=== PATIENT | female | born 1940 | race Caucasian/White ===

== ENCOUNTER 2018-03-07 16:25 | Observation (INO) | payer OTHER ==
--- OUTSIDE RECORDS SUMMARY | 2018-03-07 16:45 | XMS REPORT | Clinical Summary ---
:1940 Author Organization [facility] Address [address] [place] [id number] Care Team Providers Name Role Phone Pete Klein MD Primary Care Provider Allergies No Known Allergies Current Medications Prescription Sig. Disp. Refills Start Date End Date Status levothyroxine (SYNTHROID, Take 75 mcg by Active LEVOXYL) 75 mcg tablet mouth every morning. omeprazole (PriLOSEC) 20 Take 20 mg by Active MG capsule mouth daily. topiramate (TOPAMAX) 100 Take 100 mg by Active MG tablet mouth 2 (two) times a day. allopurinol (ZYLOPRIM) 300 Take 300 mg by Active MG tablet mouth daily. citalopram (CeleXA) 20 MG Take 20 mg by Active tablet mouth daily. Active Problems Problem Noted Date Pseudophakia 02/09/2017 Overview: OS 09/07/11 ZMB00 +19.5 OD 12/14/11 Last Assessment & Plan: OS 09/07/11 ZMB00 +19.5 OD 12/14/11 Dry eye syndrome 02/09/2017 Overview: RUL RLL puncta atretic. LLL plug intact, VERONIQUE plug removed due to epiphora. H/O Restasis use. Last Assessment & Plan: RUL RLL puncta atretic. LLL plug intact, VERONIQUE plug removed due to epiphora. 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 20/40 with MRx, given. If NI or cannot pass DL test, then call for YAG OU. DL form filled. Social History Tobacco Use Types Packs/Day Years Used Date Never Smoker Sex Assigned at Date Recorded Not on file Last Filed Vital Signs Not on file Plan of Treatment Health Maintenance Due Date Last Done Comments JOANNAGRMOHAN VACCINE (#1) 01/22/1988 ZOSTER VACCINE 1998 PNEUMOCOCCAL POLYSACCHARIDE VACCINE AGE 65 AND OVER 2003 PNEUMOCOCCAL-13 2003 INFLUENZA VACCINE 05/03/2018 Results Not on fileafter 03/06/2017 Insurance Payer Benefit Plan / Group Subscriber ID Type Phone Address MEDICARE MEDICARE PART A AND B xxxxxxxxxxx Medicare [place], [place] [employer] CO OF xxxxxxxxxx Commercial [place] [phone] [place] [id number]
--- OUTSIDE RECORDS SUMMARY | 2018-03-07 16:45 | XMS REPORT | Clinical Summary ---
:1940 Author Organization [facility] Address [address] [place] [address] Phone Care Team Providers Name Role Phone Unavailable Primary Care Provider Unavailable Allergies No Known Allergies Current Medications Prescription Sig. Disp. Refills Start Date End Date Status omeprazole (PRILOSEC) Take 20 mg by Active 20 MG capsule mouth daily. allopurinol (ZYLOPRIM) Take 300 mg by Active 100 MG mouth daily . tabletIndications: Gout citalopram (CELEXA) 20 Take 20 mg by Active MG tablet mouth daily. levothyroxine Take 75 mcg by Active (SYNTHROID, mouth Every LEVOTHROID) 75 MCG morning on an tablet empty stomach. aspirin 81 MG EC Take 81 mg by Active tablet mouth daily. cholecalciferol, Take 50,000 Active vitamin D3, 50,000 Units by mouth unit Tab once a week. topiramate (TOPAMAX) Take 100 mg by Active 100 MG tablet mouth 2 (two) times daily. apixaban (ELIQUIS) 5 10 mg po bid x 7 60 tablet 0 04/01/2016 Active mg Tab tablet Then 5 mg po bid. albuterol HFA Inhale 2 puffs 1 Inhaler 0 04/01/2016 04/01/2017 (VENTOLIN HFA) 90 by mouth via mcg/actuation inhaler inhaler every 6 (six) hours as needed for Wheezing. Active Problems Problem Noted Date UTI (urinary tract infection) 04/01/2016 Asthmatic bronchitis without complication 04/01/2016 Acute deep vein thrombosis of right tibial vein (HCC) 03/31/2016 Acute deep vein thrombosis of right popliteal vein (HCC) 03/31/2016 Acute deep vein thrombosis (DVT) of other specified vein of right lower 2015 extremity ([facility]) Closed left ankle fracture 03/29/2016 Pulmonary embolism (HCC) 03/28/2016 Social History Tobacco Use Types Packs/Day Years Used Date Passive Smoke Exposure - Never Smoker Alcohol Use Drinks/Week oz/Week Comments Yes 1 Glasses of wine 0.6 says one per month Sex Assigned at Date Recorded Not on file Last Filed Vital Signs Not on file Plan of Treatment Not on file Results Not on fileafter 03/06/2017
[2018-03-07] MEDS ORDERED: ALBUTEROL 2.5 MG/3 ML NEB SOL IH PRN (17:08)
[2018-03-07 17:28] VITALS: BMI 40.4
[2018-03-07] MEDS ORDERED: ONDANSETRON 4 MG (ODT) TAB PO PRN (18:00)
[2018-03-07] MEDS ORDERED: NACHLORIDE 0.45% 1,000 ML IV SCH (18:00)
[2018-03-07] MEDS ORDERED: ACETAMINOPHEN 325 MG TABLET PO PRN (18:00)
[2018-03-07] MEDS ORDERED: DIPHENHYDRAMINE 25 MG TAB/CAP PO PRN (18:00)
[2018-03-07] MEDS ORDERED: LOPERAMIDE HCL 2 MG CAPSULE PO PRN (18:00)
[2018-03-07] MEDS ORDERED: POLYETHYL GLY 3350 17 GM/DOSE PO PRN (18:00)
[2018-03-07] MEDS: NACHLORIDE 0.45% 1,000 ML IV SCH (18:00)
[2018-03-07] MEDS ORDERED: ONDANSETRON 4 MG/2 ML VIAL IV PRN (18:00)
[2018-03-07] MEDS ORDERED: PNEUMOCOCCAL VACCINE 0.5 ML IMVAC ONE (18:00)
[2018-03-07] MEDS: ENOXAPARIN 40 MG/0.4 ML SQ SCH (18:02)
[2018-03-07 18:07] LABS: Absolute Lymphocytes (CBC) 4.9 K/uL (0.7-4.9); Absolute Monocytes 1.1 K/uL (0.1-1.3); Absolute Neutrophil 10.4 K/uL (1.8-8.0); Basophils % 0.4 % (0-1.3); Eosinophils % 1.6 % (0-4.4); Hematocrit 44.2 % (36.0-45.0); Lymphocytes % 29.2 % (15.3-44.8); MCH 28.6 pg (27.0-35.0); MCV 90.6 fL (80-100); MPV 8.2 fL (7.6-11.3); Monocytes % 6.7 % (3.3-12.3); RBC Red Blood Cell Count 4.88 M/uL (3.86-4.86)
[2018-03-07 18:11] LABS: Protime INR 1.02
[2018-03-07 18:13] LABS: Potassium 3.4 mEq/L (3.6-5.0)
[2018-03-07 18:19] LABS: Albumin 3.5 g/dL (3.2-5.5); Bilirubin Direct 0.1 mg/dL (0-0.2); Bilirubin Total 0.4 mg/dL (0.3-1.2); Phosphorus 3.4 mg/dL (2.5-4.3); Protein, Total 7.3 g/dL (6.0-8.3)
[2018-03-07 18:38] LABS: Platelet Estimate ADEQ; Urine White Blood Cell Casts OK
[2018-03-07 18:39] LABS: Blood Morphology Comment NOT SEEN (NOT SEEN)
[2018-03-07 18:50] LABS: Urine Appearance CLEAR; Urine Bilirubin NEGATIVE (NEG); Urine Blood TRACE (NEG); Urine Color YELLOW; Urine Glucose NEGATIVE (NEG); Urine Protein NEGATIVE (NEG); Urine Urobilinogen 0.2 mg/dL (0.2-1.0)
[2018-03-07 18:53] LABS: Thyroid Stimulating Hormone 0.48 uIU/mL (0.34-5.60)
[2018-03-07 18:54] LABS: Urine Microscopic Reflex ORDER UMIC
[2018-03-07 19:10] LABS: Urine Bacteria <20 /HPF (<20); Urine Culture Reflex Order NOT NEEDED; Urine Mucus 1+ /HPF (NONE SEEN); Urine RBC <5 /HPF (NONE SEEN); Urine Yeast MANY (NONE SEEN)
[2018-03-07] MEDS: ALBUTEROL 2.5 MG/3 ML NEB SOL IH SCH (19:40)
[2018-03-07] MEDS: IPRATROPIUM BROM 0.5MG/2.5ML IH SCH (19:40)
--- NOTE | 2018-03-07 21:27 | RAD REPORT ---
EXAM DESCRIPTION: CT - Thorax W/ Con - 03/07/2018 7:18 pm CLINICAL HISTORY: Cough pneumonia and shortness of breath COMPARISON: November 2016 TECHNIQUE: Computed axial tomography of the chest was obtained. 100 cc Isovue 300 was administered i ntravenously. All CT scans are performed using dose optimization technique as appropriate and may include automated exposure control or mA/KV adjustment according to patient size. FINDINGS: Bilateral thyroid nodules are unchanged. A Y shaped opacity within the right lower lobe may represent mucus plugging. A few areas of scarring and subsegmental axis are seen within the lungs. No mediastinal or hilar lymphadenopathy is seen. A pleural effusion is not present. A pericardial effusion is not noted. Small left renal calculi are noted IMPRESSION: Right lower lobe mucoid impaction
[2018-03-07] MEDS ORDERED: POTASSIUM 25 MEQ EFFERV TAB PO ONE (21:53)
[2018-03-08] MEDS: IPRATROPIUM BROM 0.5MG/2.5ML IH SCH ×4 (01:52→19:49)
[2018-03-08] MEDS: ALBUTEROL 2.5 MG/3 ML NEB SOL IH SCH ×4 (01:52→19:49)
[2018-03-08 05:05] LABS: Absolute Lymphocytes (CBC) 5.7 K/uL (0.7-4.9); Absolute Monocytes 1.2 K/uL (0.1-1.3); Absolute Neutrophil 6.7 K/uL (1.8-8.0); Basophils % 0.3 % (0-1.3); Eosinophils % 1.4 % (0-4.4); Hematocrit 39.5 % (36.0-45.0); Lymphocytes % 41.4 % (15.3-44.8); MCH 29.3 pg (27.0-35.0); MCV 89.3 fL (80-100); MPV 7.9 fL (7.6-11.3); Monocytes % 8.4 % (3.3-12.3); RBC Red Blood Cell Count 4.42 M/uL (3.86-4.86)
[2018-03-08 05:21] LABS: Potassium 3.7 mEq/L (3.6-5.0)
[2018-03-08] MEDS ORDERED: POTASSIUM 25 MEQ EFFERV TAB PO ONE (05:23)
[2018-03-08] MEDS: ENOXAPARIN 40 MG/0.4 ML SQ SCH (08:04)
[2018-03-08 19:52] VITALS: O2SAT 91
[2018-03-09] MEDS: ALBUTEROL 2.5 MG/3 ML NEB SOL IH SCH ×2 (01:41→07:39)
[2018-03-09] MEDS: IPRATROPIUM BROM 0.5MG/2.5ML IH SCH ×2 (01:41→07:40)
[2018-03-09] MEDS: NACHLORIDE 0.45% 1,000 ML IV SCH (03:20)
[2018-03-09 05:26] LABS: Absolute Monocytes 1.1 K/uL (0.1-1.3); Absolute Neutrophil 5.7 K/uL (1.8-8.0); Basophils % 0.2 % (0-1.3); Eosinophils % 1.9 % (0-4.4); Hematocrit 39.1 % (36.0-45.0); Lymphocytes % 41.8 % (15.3-44.8); MCH 29.2 pg (27.0-35.0); MCV 90.5 fL (80-100); MPV 8.1 fL (7.6-11.3); Monocytes % 8.8 % (3.3-12.3); RBC Red Blood Cell Count 4.32 M/uL (3.86-4.86)
[2018-03-09 05:45] LABS: Potassium 4.1 mEq/L (3.6-5.0)
--- NOTE | 2018-03-09 07:46 | P.CNS ---
Date of Consult: 03/08/18 Reason for Consult: Abnormal CT scan and cough Chief Complaint: Cough History of Present Illness: Patient is a pleasant 78-year-old lady has been having some coughing and weakness for the past 3 weeks coughing up some productive sputum was treated with antibiotics no relief ended up here in the hospital complains of some wheezing no prior history of wheezing before no prior history of obstructive airways disease patient has never smoked CT scan showed a mucous plug no prior cardiac history denies any swelling of lower extremity no fever or chills Allergies No Known Allergies Allergy (Verified 08/19/14 10:16) Home Medications: Citalopram Hydrobromide [Citalopram HBr] 20 mg PO DAILY 08/02/12 Levothyroxine Sodium [Levothroid] 75 mcg PO DAILY 08/02/12 Omeprazole 20 mg PO DAILY 08/02/12 Allopurinol [Zyloprim] 100 mg PO DAILY 03/07/18 - Past Medical/Surgical History Diabetic: No -: back Sx -: L Knee replacement -: Duct removal on L Breast -: Gall bladder Sx -: - Family History Father Medical History: Heart disease, Stroke Mother History Unknown: Yes - Social History Smoking Status: Never smoker Alcohol use: Yes CD- Drugs: No Caffeine use: Yes Place of Residence: Home Review of Systems 10-point ROS is otherwise unremarkable Respiratory: Cough, Shortness of Breath Physical Examination Temp Pulse Resp BP Pulse Ox 97.9 F 90 18 143/65 H 95 03/09/18 04:00 03/09/18 04:00 03/09/18 04:00 03/09/18 04:00 03/09/18 04:00 General: Oriented x3 HEENT: Atraumatic Neck: Supple Respiratory: Expiratory wheezes Cardiovascular: No edema, Regular rate/rhythm, Normal S1 S2 Gastrointestinal: Normal bowel sounds, Soft and benign Laboratory Data (last 24 hrs) 03/09/18 04:50: Sodium 139, Potassium 4.1, BUN 18, Creatinine 0.89, Glucose 123 H, Magnesium 2.0 03/09/18 04:50: WBC 12.0 H, Hgb 12.6, Hct 39.1, Plt Count 374 - Problems (1) Wheezing Current Visit: Yes Status: Acute Plan: Patient is 78 years of age has been admitted with 3 week history of coughing wheezing white count was elevated is not declining abnormal CT scan he does have a right lower lobe opacity linear branch shaped probably a mucus plug she probably has mild element of reactive airways disease patient can be discharged home on Advair cultures negative follow with me in 2 weeks oxygenation satisfactory
[2018-03-09] MEDS: ENOXAPARIN 40 MG/0.4 ML SQ SCH (08:23)
[2018-03-09 12:33] VITALS: BP 124/63; TEMP 97.2
== END 2018-03-09 13:08 | disposition home or self-care (01) ==
LOC: 4TH 16:43
PROVIDERS: ADMIT Internal Medicine; ATTEND Internal Medicine
DX: J15.9 Unspecified bacterial pneumonia (principal); Z96.652 Presence of left artificial knee joint
CPT/HCPCS: 36415 ×3; 71260; 80048 ×3; 80076; 82306; 82607; 83735 ×3; 84100; 84443; 85025 ×3; 85610; 85730; 87070; 87086; 87088; 87205; 94640; G0378 ×2; J1650 ×3; Q9967; 81003; 81015

== ENCOUNTER 2018-04-10 17:35 | Inpatient (IN) | payer OTHER ==
--- OUTSIDE RECORDS SUMMARY | 2018-04-10 17:36 | XMS REPORT | Clinical Summary ---
:1940 Author Organization [facility] Address [address] [place] [id number] Care Team Providers Name Role Phone Pete [...] INFLUENZA VACCINE 05/03/2018 Results Not on fileafter 04/09/2017 Insurance Payer Benefit Plan / Group Subscriber ID Type Phone Address MEDICARE MEDICARE PART A AND B xxxxxxxxxxx Medicare [place], [place] [employer] INS CO OF xxxxxxxxxx Commercial [place] [phone] [place] [id number]
--- OUTSIDE RECORDS SUMMARY | 2018-04-10 17:36 | XMS REPORT | Clinical Summary ---
:1940 Author Organization [facility] Address [address] [place] [address] Phone Care Team Providers Name Role Phone [...] levothyroxine Take 75 mcg by Active (SYNTHROID, LEVOTHROID) mouth Every 75 MCG tablet morning on an empty stomach. aspirin 81 MG EC tablet Take 81 mg by Active mouth daily. cholecalciferol, Take 50,000 Units Active vitamin D3, 50,000 unit by mouth once a Tab week. topiramate (TOPAMAX) Take 100 mg by Active 100 MG tablet mouth 2 (two) times daily. apixaban (ELIQUIS) 5 mg 10 mg po bid x 7 60 tablet 0 04/01/2016 Active Tab tablet Then 5 mg po bid. Active Problems Problem Noted Date UTI (urinary tract infection) 04/01/2016 Asthmatic bronchitis without complication 04/01/2016 Acute deep vein thrombosis of right tibial vein (HCC) 03/31/2016 Acute deep vein thrombosis of right popliteal vein (HCC) 03/31/2016 Acute deep vein thrombosis (DVT) of other specified vein of right lower 2015 extremity ([facility]) Closed left ankle fracture 03/29/2016 Pulmonary embolism ([facility]) 03/28/2016 Social History Tobacco Use Types Packs/Day Years Used Date Passive Smoke Exposure - Never Smoker Alcohol Use Drinks/Week oz/Week Comments Yes 1 Glasses of wine 0.6 says one per month Sex Assigned at Date Recorded Not on file Last Filed Vital Signs Not on file Plan of Treatment Not on file Results Not on fileafter 04/09/2017
[2018-04-10] MEDS ORDERED: ALBUTEROL 2.5 MG/3 ML NEB SOL ONE (18:46)
[2018-04-10] MEDS ORDERED: IPRATROPIUM BROM 0.5MG/2.5ML ONE (18:46)
[2018-04-10] MEDS ORDERED: METHYLPREDNISOLONE 125 MG INJ ONE (18:47)
[2018-04-10 19:24] LABS: Absolute Lymphocytes (CBC) 3.8 K/uL (0.7-4.9); Absolute Monocytes 1.2 K/uL (0.1-1.3); Absolute Neutrophil 8.7 K/uL (1.8-8.0); Basophils % 0.4 % (0-1.3); Hematocrit 37.9 % (36.0-45.0); Lymphocytes % 27.2 % (15.3-44.8); MCV 92.3 fL (80-100); Monocytes % 8.5 % (3.3-12.3); RBC Red Blood Cell Count 4.11 M/uL (3.86-4.86)
--- NOTE | 2018-04-10 19:24 | RAD REPORT ---
EXAM DESCRIPTION: RAD - Chest Single View - 04/10/2018 7:11 pm CLINICAL HISTORY: DYSPNEA Chest pain. COMPARISON: Chest Pa And Lat (2 Views) dated 04/03/2018; Chest Pa And Lat (2 Views) dated 02/28/2018; C hest Pa And Lat (2 Views) dated 11/11/2016; Chest Pa And Lat (2 Views) dated 11/09/2016; Thorax W/ Con da catie 03/07/2018 FINDINGS: Portable technique limits examination quality. Linear opacities are seen in both lung bases, likely representing subsegmental atelectasis. The heart is mildly enlarged in size. No displaced fractures.Hardware is present in the thoracolumbar spine.
[2018-04-10 19:25] LABS: Protime INR 1.06
[2018-04-10 19:47] LABS: ALT/SGPT 17 U/L (12-78); AST/SGOT 18 U/L (15-37); Albumin 3.2 g/dL (3.4-5.0); Alkaline Phosphatase 121 U/L (45-117); BUN Blood Urea Nitrogen 10 mg/dL (7-18); Bicarbonate 28 mmol/L (21-32); Bilirubin Direct < 0.1 mg/dL (0-0.2); Bilirubin Total 0.2 mg/dL (0.2-1.0); Creatine Phosphokinase 66 U/L (26-192); Glucose Level 93 mg/dL (74-106); Magnesium 2.3 mg/dL (1.8-2.4); NT PRO-BNP 570 pg/mL (<450); Potassium 3.6 mmol/L (3.5-5.1); Protein, Total 7.5 g/dL (6.4-8.2); Sodium Level 143 mmol/L (136-145)
--- NOTE | 2018-04-10 21:21 | EDPHYS ---
Physician Documentation [facility] Name: Pauly Alex Age: 78 yrs Sex: Female : 1940 Arrival Date: 04/10/2018 Time: 17:37 Bed 23 Private MD: Pete Klein V ED Physician Enrique Her HPI: 04/10 18:50 This 78 yrs old Female presents to ER via Wheelchair with complaints of jr8 Breathing Difficulty. 18:50 The patient has shortness of breath at rest. Onset: The symptoms/episode began/occurred jr8 gradually, 2 week(s) ago, and became worse and became persistent. Duration: The symptoms are continuous. The patient's shortness of breath is aggravated by talking, walking. Associated signs and symptoms: Pertinent positives: productive cough. Severity of symptoms: At their worst the symptoms were moderate in the emergency department the symptoms are unchanged. The patient has experienced a previous episode. The patient has not recently seen a physician. Was admitted a few weeks ago for pneumonia. Was discharged feeling better but now having shortness of breath and dyspnea with exertion . Historical: - Allergies: 17:54 No Known Allergies; aa5 - PMHx: 17:54 Depression; GERD; Gout; Hypothyroidism; Pneumonia; aa5 - PSHx: 17:54 Thyroid Cyst I/D; aa5 - Immunization history:: Pneumococcal vaccine is not up to date. - Social history:: Smoking status: Patient/guardian denies using tobacco. - Ebola Screening: : No symptoms or risks identified at this time. ROS: 18:50 Eyes: Negative for injury, pain, redness, and discharge, ENT: Negative for injury, jr8 pain, and discharge, Neck: Negative for injury, pain, and swelling, Cardiovascular: Negative for chest pain, palpitations, and edema, Abdomen/GI: Negative for abdominal pain, nausea, vomiting, diarrhea, and constipation, Back: Negative for injury and pain, MS/Extremity: Negative for injury and deformity, Skin: Negative for injury, rash, and discoloration, Neuro: Negative for headache, weakness, numbness, tingling, and seizure. 18:50 Respiratory: Positive for cough, dyspnea on exertion, shortness of breath, wheezing. Exam: 18:50 Eyes: Pupils equal round and reactive to light, extra-ocular motions intact. Lids and jr8 lashes normal. Conjunctiva and sclera are non-icteric and not injected. Cornea within normal limits. Periorbital areas with no swelling, redness, or edema. ENT: Nares patent. No nasal discharge, no septal abnormalities noted. Tympanic membranes are normal and external auditory canals are clear. Oropharynx with no redness, swelling, or masses, exudates, or evidence of obstruction, uvula midline. Mucous membranes moist. Neck: Trachea midline, no thyromegaly or masses palpated, and no cervical lymphadenopathy. Supple, full range of motion without nuchal rigidity, or vertebral point tenderness. No Meningismus. Cardiovascular: Regular rate and rhythm with a normal S1 and S2. No gallops, murmurs, or rubs. Normal PMI, no JVD. No pulse deficits. Abdomen/GI: Soft, non-tender, with normal bowel sounds. No distension or tympany. No guarding or rebound. No evidence of tenderness throughout. Back: No spinal tenderness. No costovertebral tenderness. Full range of motion. Skin: Warm, dry with normal turgor. Normal color with no rashes, no lesions, and no evidence of cellulitis. MS/ Extremity: Pulses equal, no cyanosis. Neurovascular intact. Full, normal range of motion. Neuro: Awake and alert, GCS 15, oriented to person, place, time, and situation. Cranial nerves II-XII grossly intact. Motor strength 5/5 in all extremities. Sensory grossly intact. Cerebellar exam normal. Normal gait. 18:50 Respiratory: mild respiratory distress is noted, Respirations: tachypnea, Breath sounds: rhonchi, that are moderate, are heard diffusely, wheezing: expiratory that is mild, is heard diffusely. Vital Signs: 17:54 BP 138 / 56; Pulse 94; Resp 18 S; Temp 98.7(TE); Pulse Ox 90% on R/A; Weight 90.72 kg aa5 (R); Height 4 ft. 11 in. (149.86 cm) (R); 17:58 Pulse Ox 2 lpm NC; aa5 19:21 BP 133 / 57; Pulse 86; Resp 17; Pulse Ox 96% on 2.5 lpm NC; kr2 20:25 BP 144 / 81; Pulse 92; Resp 19; Pulse Ox 95% on 2.5 lpm NC; kr2 20:25 BP 140 / 75; Pulse 88; Resp 21; Pulse Ox 97% on 2.5 lpm NC; kr2 22:45 BP 139 / 74; Pulse 93; Resp 19; Pulse Ox 96% on 2.5 lpm NC; kr2 23:30 BP 136 / 78; Pulse 94; Resp 20; Pulse Ox 98% on 2 lpm NC; kr2 17:54 Body Mass Index 40.39 (90.72 kg, 149.86 cm) aa5 MDM: 18:15 Patient medically screened. 8 21:19 Data reviewed: vital signs, nurses notes, lab test result(s), EKG, radiologic studies, jr8 plain films, and as a result, I will admit patient. Data interpreted: Pulse oximetry: on room air is 86 %. Interpretation: hypoxia. Counseling: I had a detailed discussion with the patient and/or guardian regarding: the historical points, exam findings, and any diagnostic results supporting the discharge/admit diagnosis, lab results, radiology results, the need for further work-up and treatment in the hospital. 21:33 Physician consultation: Pete Klein MD was called at 21:33, was contacted at 21:33, jr8 regarding admission, to the telemetry unit. consult, patient's condition, and will see patient. 04/10 18:39 Order name: Basic Metabolic Panel [facility] 04/10 18:39 Order name: CBC with Diff; Complete Time: 19:49 [facility] 04/10 18:39 Order name: Ckmb [facility] 04/10 18:39 Order name: CPK [facility] 04/10 18:39 Order name: LFT's [facility] 04/10 18:39 Order name: Magnesium; Complete Time: 19:49 [facility] 04/10 18:39 Order name: NT PRO-BNP; Complete Time: 19:49 [facility] 04/10 18:39 Order name: PT-INR; Complete Time: 19:49 [facility] 04/10 18:39 Order name: Troponin (emerg Dept Use Only); Complete Time: 19:49 [facility] 04/10 18:40 Order name: Basic Metabolic Panel; Complete Time: 19:49 [facility] 04/10 18:40 Order name: CKMB Creatine Kinase MB; Complete Time: 19:49 EDMS 04/10 18:40 Order name: Creatine Phosphokinase; Complete Time: 19:49 EDMS 04/10 18:40 Order name: Liver (Hepatic) Function; Complete Time: 19:49 [facility] 04/10 23:09 Order name: Urine Dipstick--Ancillary (enter results) rg2 04/10 18:39 Order name: XRAY Chest (1 view); Complete Time: 19:27 [facility] 04/10 18:39 Order name: EKG; Complete Time: 18:40 [facility] 04/10 18:39 Order name: Cardiac monitoring; Complete Time: 18:52 [facility] 04/10 18:39 Order name: EKG - Nurse/Tech; Complete Time: 19:22 [facility] 04/10 18:39 Order name: IV Saline Lock; Complete Time: 18:52 [facility] 04/10 18:39 Order name: Labs collected and sent; Complete Time: 18:52 [facility] 04/10 18:39 Order name: O2 Per Protocol; Complete Time: 18:52 [facility] 04/10 18:39 Order name: O2 Sat Monitoring; Complete Time: 18:52 [facility] 04/10 23:09 Order name: Urine Microscopic Only rg2 Administered Medications: 18:51 Drug: Albuterol - atroVENT (3:1) (2.5 mg - 0.5 mg) 3 ml Route: Nebulizer; kr2 19:09 Follow up: Response: No adverse reaction kr2 19:09 Drug: SOLU-Medrol 125 mg Route: IVP; Site: left antecubital; kr2 19:21 Follow up: Response: No adverse reaction kr2 Disposition: 04/11 11:45 Co-signature as Attending Physician, Enrique Her MD I agree with the assessment and kdr plan of care. Disposition: 04/10/18 21:20 Hospitalization ordered by Pete Klein for Inpatient Admission. Preliminary diagnosis is Acute bronchitis. - Bed requested for Telemetry/MedSurg (Inpatient). - Status is Inpatient Admission. kr2 - Condition is Fair. - Problem is new. - Symptoms are unchanged. UTI on Admission? No Signatures: Dispatcher [employer] EDLA Marsha Nuñez RN Enrique Guidry MD MD [facility] Mary Rocha RN RN aa5 Yemi Blank PA PA jr8 Mariah Waldron RN RN kr2 Corrections: (The following items were deleted from the chart) 04/10 21:22 21:20 Hospitalization Ordered by Pete Klein MD for Inpatient Admission. Preliminary mw diagnosis is Acute bronchitis. Bed requested for Telemetry/MedSurg (Inpatient). Status is Inpatient Admission. Condition is Fair. Problem is new. Symptoms are unchanged. UTI on Admission? No. jr8 23:32 21:22 04/10/2018 21:20 Hospitalization Ordered by Pete Klein MD for Inpatient kr2 Admission. Preliminary diagnosis is Acute bronchitis. Bed requested for Telemetry/MedSurg (Inpatient). Status is Inpatient Admission. Condition is Fair. Problem is new. Symptoms are unchanged. UTI on Admission? No. mw
--- NOTE | 2018-04-10 21:21 | ER ---
Nurse's Notes [facility] Name: Pauly Alex Age: 78 yrs Sex: Female : 1940 Arrival Date: 04/10/2018 Time: 17:37 Bed 23 Private MD: Pete Klein V Diagnosis: Acute bronchitis Presentation: 04/10 17:53 Presenting complaint: Patient states: "I was here with Pneumonia about 2 weeks ago and aa5 I'm still not any better". pt c/o SOB and cough. Transition of care: patient was not received from another setting of care. Onset of symptoms was April 2018. Risk Assessment: Do you want to hurt yourself or someone else? Patient reports no desire to harm self or others. Initial Sepsis Screen: Does the patient meet any 2 criteria? No. Patient's initial sepsis screen is negative. Does the patient have a suspected source of infection? No. Patient's initial sepsis screen is negative. Care prior to arrival: None. 17:53 Method Of Arrival: Wheelchair aa5 17:53 Acuity: KIA 3 aa5 Triage Assessment: 18:30 General: Appears in no apparent distress. comfortable, well groomed, well developed, kr2 well nourished, Behavior is calm, cooperative, appropriate for age. Respiratory: Onset: The symptoms/episode began/occurred 3 days ago. Respiratory: Airway is patent Respiratory effort is even, unlabored, Respiratory pattern is regular, symmetrical. Respiratory: the patient has mild shortness of breath. Respiratory: Breath sounds are coarse bilaterally. Breath sounds with crackles bilaterally. in left posterior lower lobe and right posterior lower lobe. Respiratory: Reports shortness of breath on exertion cough that is productive, persistent. Historical: - Allergies: 17:54 No Known Allergies; aa5 - PMHx: 17:54 Depression; GERD; Gout; Hypothyroidism; Pneumonia; aa5 - PSHx: 17:54 Thyroid Cyst I/D; aa5 - Immunization history:: Pneumococcal vaccine is not up to date. - Social history:: Smoking status: Patient/guardian denies using tobacco. - Ebola Screening: : No symptoms or risks identified at this time. Screenin:30 Abuse screen: Denies threats or abuse. Denies injuries from another. Nutritional kr2 screening: No deficits noted. Tuberculosis screening: No symptoms or risk factors identified. Fall Risk None identified. Assessment: 18:26 General: Appears in no apparent distress. comfortable, well groomed, well developed, kr2 well nourished, Behavior is calm, cooperative, appropriate for age. Pain: Denies pain. Neuro: Level of Consciousness is awake, alert, obeys commands, Oriented to person, place, time, situation, Appropriate for age. Cardiovascular: Capillary refill < 3 seconds in bilateral fingers Patient's skin is warm and dry. Rhythm is sinus rhythm. Respiratory: Reports cough that is productive, she was hospitalized one month ago with pneumonia Airway is patent Respiratory effort is even, unlabored, Respiratory pattern is regular, Breath sounds are coarse bilaterally. Breath sounds with crackles bilaterally. in left posterior lower lobe and right posterior lower lobe. Respiratory: Reports shortness of breath on exertion since 2-3 days ago the patient has mild shortness of breath. GI: Abdomen is round non-distended, Bowel sounds present X 4 quads. : Denies burning with urination. EENT: Oral mucosa is moist. Derm: Skin is intact, with poor turgor Skin is pink, warm \\T\\ dry. Musculoskeletal: Circulation, motion, and sensation intact. 19:20 Reassessment: Patient appears in no apparent distress at this time. Patient and/or kr2 family updated on plan of care and expected duration. Pain level reassessed. Patient is alert, oriented x 3, equal unlabored respirations, skin warm/dry/pink. Patient denies pain at this time. 20:25 Reassessment: Patient appears in no apparent distress at this time. Patient and/or kr2 family updated on plan of care and expected duration. Pain level reassessed. Patient is alert, oriented x 3, equal unlabored respirations, skin warm/dry/pink. Patient denies pain at this time. 21:17 Reassessment: Patient appears in no apparent distress at this time. Patient and/or kr2 family updated on plan of care and expected duration. Pain level reassessed. Patient is alert, oriented x 3, equal unlabored respirations, skin warm/dry/pink. Assisted patient to ambulate around the nurse's station. Patient became very short of breath and O2 sat on room air after ambulating was 86%. Patient recovered quickly with rest. Saturations up to 96% on O2 \\T\\ 2.5 lpm via NC. 22:30 Reassessment: Patient appears in no apparent distress at this time. Patient and/or kr2 family updated on plan of care and expected duration. Pain level reassessed. Patient is alert, oriented x 3, equal unlabored respirations, skin warm/dry/pink. Patient denies pain at this time. 23:15 Reassessment: Patient appears in no apparent distress at this time. Patient and/or kr2 family updated on plan of care and expected duration. Pain level reassessed. Patient is alert, oriented x 3, equal unlabored respirations, skin warm/dry/pink. Patient denies pain at this time. Vital Signs: 17:54 BP 138 / 56; Pulse 94; Resp 18 S; Temp 98.7(TE); Pulse Ox 90% on R/A; Weight 90.72 kg aa5 (R); Height 4 ft. 11 in. (149.86 cm) (R); 17:58 Pulse Ox 2 lpm NC; aa5 19:21 BP 133 / 57; Pulse 86; Resp 17; Pulse Ox 96% on 2.5 lpm NC; kr2 20:25 BP 144 / 81; Pulse 92; Resp 19; Pulse Ox 95% on 2.5 lpm NC; kr2 20:25 BP 140 / 75; Pulse 88; Resp 21; Pulse Ox 97% on 2.5 lpm NC; kr2 22:45 BP 139 / 74; Pulse 93; Resp 19; Pulse Ox 96% on 2.5 lpm NC; kr2 23:30 BP 136 / 78; Pulse 94; Resp 20; Pulse Ox 98% on 2 lpm NC; kr2 17:54 Body Mass Index 40.39 (90.72 kg, 149.86 cm) aa5 ED Course: 17:37 Patient arrived in ED. sb2 17:38 Pete Klein MD is Private Physician. sb2 17:54 Triage completed. aa5 17:54 Arm band placed on. aa5 18:15 Yemi Blank PA is PHCP. jr8 18:15 Enrique Her MD is Attending Physician. jr8 18:19 Mariah Waldron, KATELIN is Primary Nurse. kr2 18:30 Patient has correct armband on for positive identification. monitoring and evaluation advisor on. Pulse kr2 ox on. NIBP on. Door closed. Warm blanket given. Head of bed elevated. 19:00 EKG done, by ED staff, reviewed by Yemi MARROQUIN. Inserted saline lock: 22 gauge in kr2 left antecubital area, using aseptic technique. Blood collected. 19:09 X-ray completed. Portable x-ray completed in exam room. Patient tolerated procedure ml well. 19:10 XRAY Chest (1 view) In Process Unspecified. EDNM 21:20 Pete Klein MD is Hospitalizing Provider. jr8 23:25 No provider procedures requiring assistance completed. Patient admitted, IV remains in kr2 place. Administered Medications: 18:51 Drug: Albuterol - atroVENT (3:1) (2.5 mg - 0.5 mg) 3 ml Route: Nebulizer; kr2 19:09 Follow up: Response: No adverse reaction kr2 19:09 Drug: SOLU-Medrol 125 mg Route: IVP; Site: left antecubital; kr2 19:21 Follow up: Response: No adverse reaction kr2 Outcome: 21:20 Decision to Hospitalize by Provider. jr8 23:25 Admitted to Tele accompanied by nurse, via wheelchair, room 410, with oxygen, with kr2 chart, Report called to Joyce 23:25 Condition: stable 23:25 Instructed on the need for admit, Demonstrated understanding of instructions. 23:32 Patient left the ED. kr2 Signatures: Dispatcher [employer] EDMS Donya Paul Audri, RN RN aa5 Yemi Blank PA PA jr8 Mariah Waldron RN RN kr2 Kacey Moura sb2 Corrections: (The following items were deleted from the chart) 21:19 19:21 BP 133 / 57; Pulse 86bpm; Resp 17bpm; Pulse Ox 96% RA; kr2 kr2 21:19 20:25 BP 144 / 81; Pulse 92bpm; Resp 19bpm; Pulse Ox 95% RA; kr2 kr2
[2018-04-10] MEDS ORDERED: ONDANSETRON 4 MG/2 ML VIAL IV PRN (23:24)
[2018-04-10] MEDS ORDERED: ACETAMINOPHEN 500 MG TAB PO PRN (23:24)
[2018-04-11] MEDS: METHYLPREDNISOLONE 40 MG INJ IV SCH ×3 (01:00→16:52)
[2018-04-11] MEDS ORDERED: METHYLPREDNISOLONE 125 MG INJ ONE (01:03)
[2018-04-11 03:52] LABS: Absolute Lymphocytes (CBC) 1.8 K/uL (0.7-4.9); Absolute Monocytes 0.1 K/uL (0.1-1.3); Absolute Neutrophil 10.7 K/uL (1.8-8.0); Basophils % 0.5 % (0-1.3); Hematocrit 36.2 % (36.0-45.0); Lymphocytes % 14.4 % (15.3-44.8); MCH 30.3 pg (27.0-35.0); MCV 90.4 fL (80-100); MPV 8.1 fL (7.6-11.3); Monocytes % 0.9 % (3.3-12.3)
[2018-04-11 04:13] LABS: Potassium 3.7 mmol/L (3.5-5.1)
[2018-04-11] MEDS: IPRATROPIUM BROM 0.5MG/2.5ML NEB PRN ×2 (07:54→19:40)
[2018-04-11] MEDS: ALBUTEROL 2.5 MG/3 ML NEB SOL NEB PRN ×2 (07:54→19:40)
[2018-04-11] MEDS ORDERED: PNEUMOCOCCAL VACCINE 0.5 ML IMVAC ONE (08:00)
[2018-04-11] MEDS: ASPIRIN EC 81 MG TAB PO SCH (08:13)
[2018-04-11] MEDS: CITALOPRAM 10 MG TABLET PO SCH (08:28)
[2018-04-11] MEDS: ALLOPURINOL 100 MG TAB PO SCH (08:28)
[2018-04-11] MEDS: TOPIRAMATE 100 MG TAB PO SCH (08:28)
[2018-04-11] MEDS: CHOLECALCIFEROL PO SCH (08:30)
--- NOTE | 2018-04-11 08:36 | EKG ---
Test Date: 2018-04-10 Test Time: 18:44:48 Rip Machine Operator: TARA MEASUREMENT RESULTS: Intervals: Rate: 83 AZ: 188 QRSD: 86 QT: 368 QTc: 432 Kunkle: P: 71 AZ: 188 QRS: -8 T: 75 INTERPRETIVE STATEMENTS: Normal sinus rhythm Anterior infarct, age undetermined Abnormal ECG Compared to ECG 11/11/2016 22:06:51 Myocardial infarct finding now present Electronically Signed On 04-11-18 08:35:31 CDT by Garrett Pete
--- NOTE | 2018-04-11 12:49 | P.HP ---
Certification for Inpatient Patient admitted to: Inpatient With expected LOS: >2 Midnights Practitioner: I am a practitioner with admitting privileges, knowledge of patient current condition, hospital course, and medical plan of care. Services: Services provided to patient in accordance with Admission requirements found in Title 42 Section 412.3 of the Code of Federal Regulations Patient History Date of Service: 04/11/18 Reason for admission: SHORT OF BREATH FOR MONTH History of Present Illness: MS. DOWNING HAS FAILED OUTPATIENT THERAPY FOR RECURRENT BRONCHITIS. SHE HAS DYSPNEA AT REST AND EXERSION. SHE HAS NO CHEST PAIN. COUGH AND YELLOW SPUTUM. Allergies No Known Allergies Allergy (Verified 04/10/18 23:15) Home Medications: Citalopram Hydrobromide [Citalopram HBr] 20 mg PO DAILY 08/02/12 Levothyroxine Sodium [Levothroid] 75 mcg PO DAILY 08/02/12 Omeprazole 20 mg PO DAILY 08/02/12 Allopurinol [Zyloprim] 100 mg PO DAILY 03/07/18 Cholecalciferol (Vitamin D3) [D3-50] 1 cap PO DAILY 04/11/18 Topiramate [Topamax*] 1 tab PO DAILY 04/11/18 - Past Medical/Surgical History Has patient received pneumonia vaccine in the past: No Diabetic: No -: depression -: gerd -: gout -: hypothyroidism -: pneumonia -: back Sx -: L Knee replacement -: Duct removal on L Breast -: Gall bladder Sx -: - Family History Father -: Heart disease, Stroke - Social History Smoking Status: Former smoker Alcohol use: Yes CD- Drugs: No Caffeine use: Yes Place of Residence: Home Review of Systems 10-point ROS is otherwise unremarkable General: Weakness, Malaise Respiratory: Cough, Shortness of Breath Physical Examination - Vital Signs Temperature: 97.8 F Blood Pressure: 123/63 Pulse: 93 Respirations: 20 Pulse Ox (%): 93 - Physical Exam General: Oriented x3, Mild distress, Moderate distress, Obese HEENT: Atraumatic, PERRLA, Mucous membr. moist/pink, EOMI, Sclerae nonicteric Neck: Supple, 2+ carotid pulse no bruit, No LAD, Without JVD or thyroid abnormality Respiratory: Diminished, Inspiratory wheezes Cardiovascular: Regular rate/rhythm, Normal S1 S2 Gastrointestinal: Normal bowel sounds, No tenderness Musculoskeletal: No tenderness Integumentary: No rashes Neurological: Normal gait, Normal speech, Normal strength at 5/5 x4 extr, Normal tone, Normal affect Lymphatics: No axilla or inguinal lymphadenopathy - Studies Laboratory Data (last 24 hrs) 04/10/18 19:00: PT 12.5, INR 1.06 04/10/18 19:00: WBC 13.9 H, Hgb 12.3, Hct 37.9, Plt Count 272 04/10/18 19:00: Sodium 143, Potassium 3.6, BUN 10, Creatinine 0.90, Glucose 93, Magnesium 2.3, Total Bilirubin 0.2, AST 18, ALT 17, Alkaline Phosphatase 121 H Assessment and Plan - Problems (Diagnosis) (1) CHF (congestive heart failure) Current Visit: Yes Status: Acute Plan: THIS COULD BE AN ISSUE IN COMBINATION WITH BRONCHITIS. THIS IS WHY SHE HAS NOT IMPROVED. LASIX IV BID SMALL DOSE. ECHO. MAY FIND DIASTOLIC DYSFUNCTION. (2) Acute bronchitis Onset Date: 04/11/18 Current Visit: Yes Status: Chronic Plan: NEBS, STEROIDS, ABX. STILL HAS ACUTE SYMPTOMS. (3) Hypoxemia Onset Date: 04/11/18 Current Visit: Yes Status: Acute Plan: WILL FU WITH CT ANGIOGRAM CHEST - Advance Directives Does patient have a Living Will: No Does patient have a Durable POA for Healthcare: No
--- NOTE | 2018-04-11 16:49 | RAD REPORT ---
EXAM DESCRIPTION: CT - Chest For Pe Angio - 04/11/2018 4:39 pm CLINICAL HISTORY: Chest pain. PAIN COMPARISON: Thorax W/ Con dated 03/07/2018 TECHNIQUE: CT angiogram of the pulmonary arteries was performed with MIP. All CT scans are performed using dose optimization technique as appropriate and may include automated exposure control or mA/KV adjustment according to patient size. FINDINGS: Bilateral segmental branch pulmonary emboli are seen. No evidence of RV strain pattern. No acute aortic finding demonstrated. Opacities are present in both lung bases, greater on the left, likely representing atelectasis. Diffu se COPD pattern is present, mild. No significant pericardial or pleural fluid. Spinal hardware is in place. IMPRESSION: Bilateral pulmonary thromboembolism is seen in the segmental branches bilaterally. No RV strain pattern. Findings were discussed with Dr. Klein at 4:45 p.m. 04/11/2018 by telephone.
[2018-04-11] MEDS: FUROSEMIDE 20 MG/ 2ML VIAL IV SCH (16:52)
[2018-04-11] MEDS: ENOXAPARIN 100 MG/ML SYR SQ SCH (21:47)
[2018-04-12] MEDS: METHYLPREDNISOLONE 40 MG INJ IV SCH ×3 (01:26→16:43)
[2018-04-12 04:05] LABS: Absolute Lymphocytes (CBC) 1.8 K/uL (0.7-4.9); Absolute Monocytes 0.9 K/uL (0.1-1.3); Absolute Neutrophil 19.9 K/uL (1.8-8.0); Basophils % 0.1 % (0-1.3); Hematocrit 36.7 % (36.0-45.0); MCH 29.6 pg (27.0-35.0); MCV 90.9 fL (80-100); MPV 8.5 fL (7.6-11.3); RBC Red Blood Cell Count 4.04 M/uL (3.86-4.86)
[2018-04-12 04:08] LABS: Protime INR 1.09
[2018-04-12 04:18] LABS: Potassium 3.6 mmol/L (3.5-5.1)
[2018-04-12 04:52] LABS: Blood Morphology Comment NOT SEEN (NOT SEEN); Platelet Estimate ADEQ
[2018-04-12] MEDS: PANTOPRAZOLE 40MG TABLET PO SCH (06:21)
[2018-04-12] MEDS: LEVOTHYROXINE SOD 0.075 MG TAB PO SCH (06:21)
[2018-04-12] MEDS ORDERED: CEFEPIME 2 GM VIAL IV SCH (07:17)
--- NOTE | 2018-04-12 07:27 | ECHO ---
HEIGHT: 5 ft 0 in WEIGHT: 206 lb 1.6 oz DATE OF STUDY: 04/11/[address]: Pete Klein MD 2-DIMENSIONAL: YES M.MODE: YES DOPPLER: YES COLOR FLOW: YES TDS: PORTABLE: DEFINITY: BUBBLE STUDY: DIAGNOSIS: EDEMA/ DYSPNEA CARDIAC HISTORY: CATHERIZATION: YES SURGERY: NO PROSTHETIC VALVE: NO PACEMAKER: NO MEASUREMENTS (cm) DIASTOLIC (NORMALS) SYSTOLIC (NORMALS) IVSd 1.0 (0.6-1.2) LA Diam 3.8 (1.9-4.0) LVEF 78% LVIDd 4.6 (3.5-5.7) LVIDs 2.5 (2.0-3.5) %FS 46% LVPWd 1.1 (0.6-1.2) Ao Diam 2.7 (2.0-3.7) 2 DIMENSIONAL ASSESSMENT: RIGHT ATRIUM: NORMAL LEFT ATRIUM: NORMAL RIGHT VENTRICLE: NORMAL LEFT VENTRICLE: NORMAL TRICUSPID VALVE: NORMAL MITRAL VALVE: NORMAL PULMONIC VALVE: NORMAL AORTIC VALVE: NORMAL PERICARDIAL EFFUSION: NONE AORTIC ROOT: NORMAL LEFT VENTRICULAR WALL MOTION: NORMAL DOPPLER/COLOR FLOW: MILD TRICUSPID REGURGITATION. MODERATE PULMONARY HYPERTENSION COMMENTS: MODERATE PULMONARY HYPERTENSION RIGHT VENTRICULAR SYSTOLIC PRESSURE 50 mmHg. NORMAL LEFT VENTRICULAR SIZE AND FUNCTION. MITRAL ANNULAR CALCIFICATION. AORTIC SCLEROSIS. TECHNOLOGIST: MARTY DRIVER
[2018-04-12] MEDS: CEFEPIME/SWI 2gm 2 GM/20 ML SYR IV SCH ×2 (07:44→20:45)
[2018-04-12] MEDS: CHOLECALCIFEROL PO SCH (09:00)
[2018-04-12] MEDS: FUROSEMIDE 20 MG/ 2ML VIAL IV SCH ×2 (09:13→16:43)
[2018-04-12] MEDS: ENOXAPARIN 100 MG/ML SYR SQ SCH ×2 (09:13→20:42)
[2018-04-12] MEDS: TOPIRAMATE 100 MG TAB PO SCH (09:13)
[2018-04-12] MEDS: POTASSIUM CL SA 10 MEQ TAB PO SCH (09:13)
[2018-04-12] MEDS: CITALOPRAM 10 MG TABLET PO SCH (09:14)
[2018-04-12] MEDS: ASPIRIN EC 81 MG TAB PO SCH (09:14)
[2018-04-12] MEDS: ALLOPURINOL 100 MG TAB PO SCH (09:14)
[2018-04-12] MEDS: WARFARIN SODIUM 5 MG TAB PO SCH (16:43)
--- NOTE | 2018-04-12 22:41 | P.PN ---
Subjective Date of Service: 04/12/18 Chief Complaint: SHORT OF BREATH FOR MONTH Subjective: Improving (DYSPNEA, COUGH) Review of Systems 10-point ROS is otherwise unremarkable General: Weakness, Malaise Respiratory: Shortness of Breath Physical Examination - Vital Signs Temperature: 97.3 F Blood Pressure: 171/80 Pulse: 86 Respirations: 18 Pulse Ox (%): 96 - Physical Exam General: Alert, Mild distress HEENT: Atraumatic, PERRLA, EOMI Neck: Supple, JVD not distended Respiratory: Diminished Cardiovascular: Regular rate/rhythm, Normal S1 S2 Gastrointestinal: Normal bowel sounds, No tenderness Musculoskeletal: No tenderness Integumentary: No rashes Neurological: Normal speech, Normal tone, Normal affect Lymphatics: No axilla or inguinal lymphadenopathy - Studies Medications List Reviewed: Yes Assessment And Plan - Current Problems (Diagnosis) (1) CHF (congestive heart failure) Current Visit: Yes Status: Acute Plan: THIS COULD BE AN ISSUE IN COMBINATION WITH BRONCHITIS. THIS IS WHY SHE HAS NOT IMPROVED. LASIX IV BID SMALL DOSE. ECHO. MAY FIND DIASTOLIC DYSFUNCTION. (2) Acute bronchitis Onset Date: 04/11/18 Current Visit: Yes Status: Chronic Plan: NEBS, STEROIDS, ABX. STILL HAS ACUTE SYMPTOMS. (3) Hypoxemia Onset Date: 04/11/18 Current Visit: Yes Status: Acute Plan: WILL FU WITH CT ANGIOGRAM CHEST (4) Pulmonary embolism Current Visit: Yes Status: Acute Plan: LOVENOX, AND WARFARIN WHEN XARELTO IS APPROVED THEN WE CAN STOP LOVENOX AND WARFARIN. IFNOT SHE WILL CONTINUE WARARIN FOR 6 MONTHS. Qualifiers: Pulmonary embolism type: other (5) Leukocytosis Current Visit: Yes Status: Acute Plan: MAINLY FROM STEROIDS ON ABX ALREADY.
[2018-04-13] MEDS: METHYLPREDNISOLONE 40 MG INJ IV SCH ×3 (00:47→17:03)
[2018-04-13 04:33] LABS: Protime INR 1.12
[2018-04-13 04:35] LABS: Absolute Lymphocytes (CBC) 1.9 K/uL (0.7-4.9); Absolute Monocytes 0.8 K/uL (0.1-1.3); Absolute Neutrophil 20.8 K/uL (1.8-8.0); Basophils % 0.2 % (0-1.3); Lymphocytes % 8.1 % (15.3-44.8); MCH 29.7 pg (27.0-35.0); MCV 91.3 fL (80-100); MPV 8.5 fL (7.6-11.3); Monocytes % 3.5 % (3.3-12.3); RBC Red Blood Cell Count 4.38 M/uL (3.86-4.86)
[2018-04-13] MEDS: LEVOTHYROXINE SOD 0.075 MG TAB PO SCH (05:54)
[2018-04-13] MEDS: PANTOPRAZOLE 40MG TABLET PO SCH (05:54)
[2018-04-13] MEDS: CHOLECALCIFEROL PO SCH (09:00)
[2018-04-13] MEDS: ENOXAPARIN 100 MG/ML SYR SQ SCH ×2 (09:18→20:06)
[2018-04-13] MEDS: FUROSEMIDE 20 MG/ 2ML VIAL IV SCH ×2 (09:19→17:03)
[2018-04-13] MEDS: CEFEPIME/SWI 2gm 2 GM/20 ML SYR IV SCH ×2 (09:19→20:05)
[2018-04-13] MEDS: TOPIRAMATE 100 MG TAB PO SCH (09:20)
[2018-04-13] MEDS: ALLOPURINOL 100 MG TAB PO SCH (09:24)
[2018-04-13] MEDS: POTASSIUM CL SA 10 MEQ TAB PO SCH (09:25)
[2018-04-13] MEDS: LOSARTAN POTASSIUM 50 MG TABLET PO SCH (09:25)
[2018-04-13] MEDS: ASPIRIN EC 81 MG TAB PO SCH (09:25)
[2018-04-13] MEDS: CITALOPRAM 10 MG TABLET PO SCH (09:25)
--- NOTE | 2018-04-13 12:51 | P.PN ---
Subjective Date of Service: 04/13/18 Chief Complaint: SHORT OF BREATH FOR MONTH Subjective: Improving (LESS DYSPNEA.) Review of Systems 10-point ROS is otherwise unremarkable Respiratory: Shortness of Breath Physical Examination - Vital Signs Temperature: 98.4 F Blood Pressure: 128/55 Pulse: 76 Respirations: 18 Pulse Ox (%): 94 - Physical Exam General: Alert, Mild distress, Obese HEENT: Atraumatic, PERRLA, EOMI Neck: Supple, JVD not distended Respiratory: Diminished, Inspiratory wheezes Cardiovascular: Regular rate/rhythm, Normal S1 S2 Gastrointestinal: Normal bowel sounds, No tenderness Musculoskeletal: No tenderness Integumentary: No rashes Neurological: Normal speech, Normal tone, Normal affect Lymphatics: No axilla or inguinal lymphadenopathy - Studies Medications List Reviewed: Yes Assessment And Plan - Current Problems (Diagnosis) (1) CHF (congestive heart failure) Current Visit: Yes Status: Acute Plan: THIS COULD BE AN ISSUE IN COMBINATION WITH BRONCHITIS. THIS IS WHY SHE HAS NOT IMPROVED. LASIX IV BID SMALL DOSE. ECHO. MAY FIND DIASTOLIC DYSFUNCTION. NOT MUCH ANY LONGER (2) Acute bronchitis Onset Date: 04/11/18 Current Visit: Yes Status: Chronic Plan: NEBS, STEROIDS, ABX. STILL HAS ACUTE SYMPTOMS. (3) Hypoxemia Onset Date: 04/11/18 Current Visit: Yes Status: Acute Plan: WILL FU WITH CT ANGIOGRAM CHEST (4) Pulmonary embolism Current Visit: Yes Status: Acute Plan: LOVENOX, AND WARFARIN WHEN XARELTO IS APPROVED THEN WE CAN STOP LOVENOX AND WARFARIN. IFNOT SHE WILL CONTINUE WARARIN FOR 6 MONTHS. SHOWS RV PRESSURE ELEVATION,MOD PULM HTN. STABLE. Qualifiers: Pulmonary embolism type: other (5) Leukocytosis Current Visit: Yes Status: Acute Plan: MAINLY FROM STEROIDS ON ABX ALREADY.
[2018-04-13] MEDS: WARFARIN SODIUM 5 MG TAB PO SCH (17:03)
[2018-04-14] MEDS: METHYLPREDNISOLONE 40 MG INJ IV SCH ×3 (00:45→16:56)
[2018-04-14 05:36] LABS: Absolute Lymphocytes (CBC) 2.1 K/uL (0.7-4.9); Absolute Monocytes 0.8 K/uL (0.1-1.3); Absolute Neutrophil 15.9 K/uL (1.8-8.0); Basophils % 0.2 % (0-1.3); Hematocrit 39.9 % (36.0-45.0); MCV 89.9 fL (80-100); MPV 8.7 fL (7.6-11.3); Monocytes % 4.2 % (3.3-12.3); Protime INR 2.32; RBC Red Blood Cell Count 4.44 M/uL (3.86-4.86)
[2018-04-14] MEDS: PANTOPRAZOLE 40MG TABLET PO SCH (05:47)
[2018-04-14] MEDS: LEVOTHYROXINE SOD 0.075 MG TAB PO SCH (05:47)
[2018-04-14 05:58] LABS: Potassium 3.3 mmol/L (3.5-5.1)
[2018-04-14] MEDS: CHOLECALCIFEROL PO SCH (09:00)
[2018-04-14] MEDS: ENOXAPARIN 100 MG/ML SYR SQ SCH (09:10)
[2018-04-14] MEDS: CEFEPIME/SWI 2gm 2 GM/20 ML SYR IV SCH ×2 (09:10→20:42)
[2018-04-14] MEDS: FUROSEMIDE 20 MG/ 2ML VIAL IV SCH (09:11)
[2018-04-14] MEDS: ALLOPURINOL 100 MG TAB PO SCH (09:11)
[2018-04-14] MEDS: POTASSIUM CL SA 10 MEQ TAB PO SCH (09:11)
[2018-04-14] MEDS: LOSARTAN POTASSIUM 50 MG TABLET PO SCH (09:11)
[2018-04-14] MEDS: ASPIRIN EC 81 MG TAB PO SCH (09:11)
[2018-04-14] MEDS: CITALOPRAM 10 MG TABLET PO SCH (09:11)
[2018-04-14] MEDS: TOPIRAMATE 100 MG TAB PO SCH (09:11)
[2018-04-14 14:07] LABS: Protein C Antigen 123 % (70-140)
--- NOTE | 2018-04-14 14:23 | P.PN ---
Subjective Date of Service: 04/14/18 Chief Complaint: SHORT OF BREATH FOR MONTH Subjective: Improving (SHE HAS SOME BLEEDING SPOT FROM RIGHT LOWER ABDOMEN. SP LOVENOX INJECTION THERE.) Review of Systems 10-point ROS is otherwise unremarkable Integumentary: As per HPI Physical Examination - Vital Signs Temperature: 97.3 F Blood Pressure: 141/78 Pulse: 80 Respirations: 18 Pulse Ox (%): 94 - Physical Exam General: Alert, Mild distress, Obese HEENT: Atraumatic, PERRLA, EOMI Neck: Supple, JVD not distended Respiratory: Diminished, Expiratory wheezes Cardiovascular: Regular rate/rhythm, Normal S1 S2 Gastrointestinal: Normal bowel sounds, No tenderness Musculoskeletal: No tenderness Integumentary: Other (SMALL BLEEDING AREA RIGHT LOWER ABDOMEN, SATURATED ONE GAUZE OVER 24 HOURS.) Neurological: Normal speech, Normal tone, Normal affect Lymphatics: No axilla or inguinal lymphadenopathy - Studies Medications List Reviewed: Yes Assessment And Plan - Current Problems (Diagnosis) (1) CHF (congestive heart failure) Current Visit: Yes Status: Acute Plan: THIS COULD BE AN ISSUE IN COMBINATION WITH BRONCHITIS. THIS IS WHY SHE HAS NOT IMPROVED. LASIX IV BID SMALL DOSE. ECHO. MAY FIND DIASTOLIC DYSFUNCTION. NOT MUCH ANY LONGER THIS IS NOT A MAIN PROBLEM. SHE HAS MORE OF BRONCHITIS AND PE GIVING RISE TO DYSPNEA. (2) Acute bronchitis Onset Date: 04/11/18 Current Visit: Yes Status: Chronic Plan: NEBS, STEROIDS, ABX. STILL HAS ACUTE SYMPTOMS. STILL NOT READY FOR DISCHARGE. WEAK AND WHEEZES. (3) Hypoxemia Onset Date: 04/11/18 Current Visit: Yes Status: Acute Plan: WILL FU WITH CT ANGIOGRAM CHEST (4) Pulmonary embolism Current Visit: Yes Status: Acute Plan: LOVENOX, AND WARFARIN WHEN XARELTO IS APPROVED THEN WE CAN STOP LOVENOX AND WARFARIN. IFNOT SHE WILL CONTINUE WARARIN FOR 6 MONTHS. SHOWS RV PRESSURE ELEVATION,MOD PULM HTN. STABLE. XARELTO HAS BEEN APPROVED. WILL START WHEN INR IS DOWN TO 1.5. STOP LOVENOX AND WARFARIN SHE HAS OOZING OF BLOOD FROM A PUNCUTERED SMALL VEIN IN RIGHT LOWER ABDOMEN. Qualifiers: Pulmonary embolism type: other (5) Leukocytosis Current Visit: Yes Status: Acute Plan: MAINLY FROM STEROIDS ON ABX ALREADY.
[2018-04-15] MEDS: METHYLPREDNISOLONE 40 MG INJ IV SCH ×3 (00:50→16:08)
[2018-04-15] MEDS: PANTOPRAZOLE 40MG TABLET PO SCH (05:37)
[2018-04-15] MEDS: LEVOTHYROXINE SOD 0.075 MG TAB PO SCH (05:37)
[2018-04-15 05:50] LABS: Absolute Lymphocytes (CBC) 2.3 K/uL (0.7-4.9); Absolute Monocytes 0.9 K/uL (0.1-1.3); Absolute Neutrophil 15.3 K/uL (1.8-8.0); Basophils % 0.2 % (0-1.3); Hematocrit 41.5 % (36.0-45.0); Lymphocytes % 12.5 % (15.3-44.8); MCH 29.7 pg (27.0-35.0); MCV 89.4 fL (80-100); MPV 8.3 fL (7.6-11.3); Monocytes % 5.1 % (3.3-12.3); RBC Red Blood Cell Count 4.65 M/uL (3.86-4.86)
[2018-04-15 05:55] LABS: Protime INR 3.36
[2018-04-15 06:08] LABS: Potassium 3.4 mmol/L (3.5-5.1)
[2018-04-15] MEDS: CHOLECALCIFEROL PO SCH (09:00)
[2018-04-15] MEDS: CEFEPIME/SWI 2gm 2 GM/20 ML SYR IV SCH (09:03)
[2018-04-15] MEDS: ASPIRIN EC 81 MG TAB PO SCH (09:04)
[2018-04-15] MEDS: ALLOPURINOL 100 MG TAB PO SCH (09:04)
[2018-04-15] MEDS: CITALOPRAM 10 MG TABLET PO SCH (09:04)
[2018-04-15] MEDS: TOPIRAMATE 100 MG TAB PO SCH (09:04)
[2018-04-15] MEDS: POTASSIUM CL SA 10 MEQ TAB PO SCH (09:04)
[2018-04-15] MEDS: LOSARTAN POTASSIUM 50 MG TABLET PO SCH (09:04)
--- NOTE | 2018-04-15 13:30 | P.PN ---
Subjective Date of Service: 04/15/18 Chief Complaint: SHORT OF BREATH FOR MONTH Subjective: No new changes (still deep cough and sputum.) Review of Systems 10-point ROS is otherwise unremarkable General: Weakness, Malaise Physical Examination - Vital Signs Temperature: 97.5 F Blood Pressure: 144/74 Pulse: 80 Respirations: 18 Pulse Ox (%): 94 - Physical Exam General: Alert, Mild distress HEENT: Atraumatic, PERRLA, EOMI Neck: Supple, JVD not distended Respiratory: Diminished, Expiratory wheezes, Inspiratory wheezes Cardiovascular: Regular rate/rhythm, Normal S1 S2 Gastrointestinal: Normal bowel sounds, No tenderness Musculoskeletal: No tenderness Integumentary: No rashes Neurological: Normal speech, Normal tone, Normal affect Lymphatics: No axilla or inguinal lymphadenopathy - Studies Medications List Reviewed: Yes Assessment And Plan - Current Problems (Diagnosis) (1) CHF (congestive heart failure) Current Visit: Yes Status: Acute Plan: THIS COULD BE AN ISSUE IN COMBINATION WITH BRONCHITIS. THIS IS WHY SHE HAS NOT IMPROVED. LASIX IV BID SMALL DOSE. ECHO. MAY FIND DIASTOLIC DYSFUNCTION. NOT MUCH ANY LONGER THIS IS NOT A MAIN PROBLEM. SHE HAS MORE OF BRONCHITIS AND PE GIVING RISE TO DYSPNEA. Qualifiers: Heart failure type: diastolic (2) Acute bronchitis Onset Date: 04/11/18 Current Visit: Yes Status: Chronic Plan: NEBS, STEROIDS, ABX. STILL HAS ACUTE SYMPTOMS. STILL NOT READY FOR DISCHARGE. WEAK AND WHEEZES. Change to Zosyn as Cefepime is not working enough. Levaquin failed no signs of MRSA on culture. (3) Hypoxemia Onset Date: 04/11/18 Current Visit: Yes Status: Acute Plan: WILL FU WITH CT ANGIOGRAM CHEST (4) Pulmonary embolism Current Visit: Yes Status: Acute Plan: LOVENOX, AND WARFARIN WHEN XARELTO IS APPROVED THEN WE CAN STOP LOVENOX AND WARFARIN. IFNOT SHE WILL CONTINUE WARARIN FOR 6 MONTHS. SHOWS RV PRESSURE ELEVATION,MOD PULM HTN. STABLE. XARELTO HAS BEEN APPROVED. WILL START WHEN INR IS DOWN TO 1.5. STOP LOVENOX AND WARFARIN SHE HAS OOZING OF BLOOD FROM A PUNCUTERED SMALL VEIN IN RIGHT LOWER ABDOMEN. Qualifiers: Pulmonary embolism type: other (5) Leukocytosis Current Visit: Yes Status: Acute Plan: MAINLY FROM STEROIDS ON ABX ALREADY.
[2018-04-15] MEDS: PIPER/TAZO/NS 3.375gm 3.375 GM/100 ML BAG IV SCH (18:32)
[2018-04-16] MEDS: PIPER/TAZO/NS 3.375gm 3.375 GM/100 ML BAG IV SCH ×4 (00:34→17:04)
[2018-04-16] MEDS: METHYLPREDNISOLONE 40 MG INJ IV SCH ×2 (00:35→08:51)
[2018-04-16 05:32] VITALS: BMI 38.8
[2018-04-16] MEDS: LEVOTHYROXINE SOD 0.075 MG TAB PO SCH (06:02)
[2018-04-16] MEDS: PANTOPRAZOLE 40MG TABLET PO SCH (06:02)
[2018-04-16 06:22] LABS: Protime INR 2.11
[2018-04-16 06:30] LABS: Absolute Lymphocytes (CBC) 2.1 K/uL (0.7-4.9); Absolute Monocytes 1.1 K/uL (0.1-1.3); Absolute Neutrophil 16.7 K/uL (1.8-8.0); Basophils % 0.3 % (0-1.3); Lymphocytes % 10.4 % (15.3-44.8); MCH 29.7 pg (27.0-35.0); MPV 8.8 fL (7.6-11.3); Monocytes % 5.4 % (3.3-12.3); RBC Red Blood Cell Count 4.89 M/uL (3.86-4.86)
[2018-04-16 06:34] LABS: Potassium 3.9 mmol/L (3.5-5.1)
[2018-04-16] MEDS: CHOLECALCIFEROL PO SCH (08:43)
[2018-04-16 08:50] LABS: Blood Morphology Comment NOT SEEN (NOT SEEN); Platelet Estimate ADEQ
[2018-04-16] MEDS: CITALOPRAM 10 MG TABLET PO SCH (08:51)
[2018-04-16] MEDS: ASPIRIN EC 81 MG TAB PO SCH (08:51)
[2018-04-16] MEDS: ALLOPURINOL 100 MG TAB PO SCH (08:51)
[2018-04-16] MEDS: LOSARTAN POTASSIUM 50 MG TABLET PO SCH (08:52)
[2018-04-16] MEDS: POTASSIUM CL SA 10 MEQ TAB PO SCH (08:52)
[2018-04-16] MEDS: TOPIRAMATE 100 MG TAB PO SCH (08:52)
--- NOTE | 2018-04-16 13:10 | P.PN ---
Subjective Date of Service: 04/16/18 Chief Complaint: LOT BETTER THAN BEFORE. Subjective: Improving SHE IS COUGHING BUT LOT LESSER AND SAME FOR WHEEZES. SHE HAS A BOYFRIEND WHO SMOKES IN THE HOUSE , HEAVY. I ADVISED HER TO NOT LET HIM DO SO. Review of Systems 10-point ROS is otherwise unremarkable General: Weakness, Malaise Respiratory: Shortness of Breath Physical Examination - Vital Signs Temperature: 97.9 F Blood Pressure: 172/83 Pulse: 64 Respirations: 20 Pulse Ox (%): 96 - Physical Exam General: Alert, Mild distress, Obese HEENT: Atraumatic, PERRLA, EOMI Neck: Supple, JVD not distended Respiratory: Diminished, Inspiratory wheezes (MILD) Cardiovascular: Regular rate/rhythm, Normal S1 S2 Gastrointestinal: Normal bowel sounds, No tenderness Musculoskeletal: No tenderness Integumentary: No rashes Neurological: Normal speech, Normal tone, Normal affect Lymphatics: No axilla or inguinal lymphadenopathy - Studies Medications List Reviewed: Yes Assessment And Plan - Current Problems (Diagnosis) (1) CHF (congestive heart failure) Current Visit: Yes Status: Acute Plan: THIS COULD BE AN ISSUE IN COMBINATION WITH BRONCHITIS. THIS IS WHY SHE HAS NOT IMPROVED. LASIX IV BID SMALL DOSE. ECHO. MAY FIND DIASTOLIC DYSFUNCTION. NOT MUCH ANY LONGER THIS IS NOT A MAIN PROBLEM. SHE HAS MORE OF BRONCHITIS AND PE GIVING RISE TO DYSPNEA. STOPPED ALL DIURETICS I SAW HYPERCARBIA SUGGESTIVE OF DEHYDRATION. SHE DOES NOT HAVE CHF AT THIS POINT. Qualifiers: Heart failure type: diastolic (2) Acute bronchitis Onset Date: 04/11/18 Current Visit: Yes Status: Chronic Plan: NEBS, STEROIDS, ABX. STILL HAS ACUTE SYMPTOMS. STILL NOT READY FOR DISCHARGE. WEAK AND WHEEZES. Change to Zosyn as Cefepime is not working enough. Levaquin failed no signs of MRSA on culture. (3) Hypoxemia Onset Date: 04/11/18 Current Visit: Yes Status: Acute Plan: WILL FU WITH CT ANGIOGRAM CHEST (4) Pulmonary embolism Current Visit: Yes Status: Acute Plan: LOVENOX, AND WARFARIN WHEN XARELTO IS APPROVED THEN WE CAN STOP LOVENOX AND WARFARIN. IFNOT SHE WILL CONTINUE WARARIN FOR 6 MONTHS. SHOWS RV PRESSURE ELEVATION,MOD PULM HTN. STABLE. XARELTO HAS BEEN APPROVED. WILL START WHEN INR IS DOWN TO 1.5. STOP LOVENOX AND WARFARIN SHE HAS OOZING OF BLOOD FROM A PUNCUTERED SMALL VEIN IN RIGHT LOWER ABDOMEN. XARELTO TO START TODAY. INR IS DOWN TO THERAPEUTIC AFTER STOPPING WARFARIN. Qualifiers: Pulmonary embolism type: other (5) Leukocytosis Current Visit: Yes Status: Acute Plan: MAINLY FROM STEROIDS ON ABX ALREADY. (6) HTN (hypertension) Current Visit: Yes Status: Chronic Plan: RAISE LOSARTAN AND ADD HYDRALAZINE BP IS STILL QUITE HIGH AT 170 SYSTOLIC.
[2018-04-16] MEDS: RIVAROXABAN 10 MG TABLET PO SCH (14:56)
[2018-04-16] MEDS ORDERED: LOSARTAN POTASSIUM 50 MG TABLET PO ONE ×2 (15:05→16:00)
[2018-04-16] MEDS ORDERED: IPRATROPIUM BROM 0.5MG/2.5ML NEB PRN (17:00)
[2018-04-16] MEDS ORDERED: ALBUTEROL 2.5 MG/3 ML NEB SOL NEB PRN (17:00)
[2018-04-16] MEDS: ARFORMOTEROL TARTRATE 15 MCG/2 ML VIAL.NEB NEB SCH (19:46)
[2018-04-16] MEDS: HYDRALAZINE HCL 25 MG TABLET PO SCH (20:46)
[2018-04-17] MEDS: PIPER/TAZO/NS 3.375gm 3.375 GM/100 ML BAG IV SCH ×3 (00:41→18:16)
[2018-04-17 04:02] LABS: Absolute Lymphocytes (CBC) 2.8 K/uL (0.7-4.9); Absolute Monocytes 2.7 K/uL (0.1-1.3); Absolute Neutrophil 17.9 K/uL (1.8-8.0); Basophils % 0.2 % (0-1.3); Hematocrit 39.4 % (36.0-45.0); Lymphocytes % 11.8 % (15.3-44.8); MCH 29.7 pg (27.0-35.0); MCV 90.3 fL (80-100); MPV 8.3 fL (7.6-11.3); Monocytes % 11.7 % (3.3-12.3); RBC Red Blood Cell Count 4.36 M/uL (3.86-4.86)
[2018-04-17 04:03] LABS: Protime INR 1.7
[2018-04-17 04:19] LABS: Potassium 3.7 mmol/L (3.5-5.1)
[2018-04-17 04:39] LABS: Blood Morphology Comment NOT SEEN (NOT SEEN); Platelet Estimate ADEQ
[2018-04-17] MEDS: PANTOPRAZOLE 40MG TABLET PO SCH (05:59)
[2018-04-17] MEDS: LEVOTHYROXINE SOD 0.075 MG TAB PO SCH (05:59)
[2018-04-17] MEDS: ARFORMOTEROL TARTRATE 15 MCG/2 ML VIAL.NEB NEB SCH ×2 (08:36→20:27)
[2018-04-17] MEDS: CHOLECALCIFEROL PO SCH (09:00)
[2018-04-17] MEDS: ALLOPURINOL 100 MG TAB PO SCH (09:39)
[2018-04-17] MEDS: LOSARTAN POTASSIUM 50 MG TABLET PO SCH (09:39)
[2018-04-17] MEDS: ASPIRIN EC 81 MG TAB PO SCH (09:39)
[2018-04-17] MEDS: POTASSIUM CL SA 10 MEQ TAB PO SCH (09:39)
[2018-04-17] MEDS: HYDRALAZINE HCL 25 MG TABLET PO SCH ×2 (09:39→21:05)
[2018-04-17] MEDS: TOPIRAMATE 100 MG TAB PO SCH (09:39)
[2018-04-17] MEDS: CITALOPRAM 10 MG TABLET PO SCH (09:40)
--- NOTE | 2018-04-17 15:04 | RAD REPORT ---
EXAM DESCRIPTION: RAD - Chest Pa And Lat (2 Views) - 04/17/2018 2:32 pm CLINICAL HISTORY: Fibrosis, shortness of breath, history of pulmonary embolism COMPARISON: CT study April 11, portable chest April 10 TECHNIQUE: PA and lateral views of the chest were obtained. FINDINGS: The lungs are clear of a new peripheral mass or infiltrate. Patient has chronic interstiti al lung disease that is not substantially different from comparison. This could mask early interstiti al edema or infiltrate. Trachea is midline. Heart size is normal and central vasculature is within n ormal limits. No pleural effusion or pneumothorax seen. No new or acute bone finding. Scoliosis janes s are in place. No aortic abnormality. IMPRESSION: Chronic interstitial lung disease is present similar to comparison. No acute cardiopulmo nary finding seen.
[2018-04-17] MEDS: RIVAROXABAN 10 MG TABLET PO SCH (18:15)
--- NOTE | 2018-04-17 20:56 | P.PN ---
Subjective Date of Service: 04/17/18 Chief Complaint: DEEP COUGH HAS IMPROVED Subjective: Ambulating, Improving SHE IS COUGHING BUT LOT LESSER AND SAME FOR WHEEZES. SHE HAS A BOYFRIEND WHO SMOKES IN THE HOUSE , HEAVY. I ADVISED HER TO NOT LET HIM DO SO. Review of Systems 10-point ROS is otherwise unremarkable General: Weakness, Malaise Respiratory: Cough, Shortness of Breath Physical Examination - Vital Signs Temperature: 97.5 F Blood Pressure: 142/62 Pulse: 79 Respirations: 20 Pulse Ox (%): 94 - Physical Exam General: Alert, Mild distress, Obese HEENT: Atraumatic, PERRLA, EOMI Neck: Supple, JVD not distended Respiratory: Clear to auscultation bilaterally, Normal air movement Cardiovascular: Regular rate/rhythm, Normal S1 S2 Gastrointestinal: Normal bowel sounds, No tenderness Musculoskeletal: No tenderness Integumentary: No rashes Neurological: Normal speech, Normal tone, Normal affect Lymphatics: No axilla or inguinal lymphadenopathy - Studies Medications List Reviewed: Yes Assessment And Plan - Current Problems (Diagnosis) (1) CHF (congestive heart failure) Current Visit: Yes Status: Acute Plan: THIS COULD BE AN ISSUE IN COMBINATION WITH BRONCHITIS. THIS IS WHY SHE HAS NOT IMPROVED. LASIX IV BID SMALL DOSE. ECHO. MAY FIND DIASTOLIC DYSFUNCTION. NOT MUCH ANY LONGER THIS IS NOT A MAIN PROBLEM. SHE HAS MORE OF BRONCHITIS AND PE GIVING RISE TO DYSPNEA. STOPPED ALL DIURETICS I SAW HYPERCARBIA SUGGESTIVE OF DEHYDRATION. SHE DOES NOT HAVE CHF AT THIS POINT. Qualifiers: Heart failure type: diastolic (2) Acute bronchitis Onset Date: 04/11/18 Current Visit: Yes Status: Chronic Plan: NEBS, STEROIDS, ABX. STILL HAS ACUTE SYMPTOMS. STILL NOT READY FOR DISCHARGE. WEAK AND WHEEZES. Change to Zosyn as Cefepime is not working enough. Levaquin failed no signs of MRSA on culture. (3) Hypoxemia Onset Date: 04/11/18 Current Visit: Yes Status: Acute Plan: WILL FU WITH CT ANGIOGRAM CHEST (4) Pulmonary embolism Current Visit: Yes Status: Acute Plan: LOVENOX, AND WARFARIN WHEN XARELTO IS APPROVED THEN WE CAN STOP LOVENOX AND WARFARIN. IFNOT SHE WILL CONTINUE WARARIN FOR 6 MONTHS. SHOWS RV PRESSURE ELEVATION,MOD PULM HTN. STABLE. XARELTO HAS BEEN APPROVED. WILL START WHEN INR IS DOWN TO 1.5. STOP LOVENOX AND WARFARIN SHE HAS OOZING OF BLOOD FROM A PUNCUTERED SMALL VEIN IN RIGHT LOWER ABDOMEN. XARELTO TO START TODAY. INR IS DOWN TO THERAPEUTIC AFTER STOPPING WARFARIN. Qualifiers: Pulmonary embolism type: other (5) Leukocytosis Current Visit: Yes Status: Acute Plan: MAINLY FROM STEROIDS ON ABX ALREADY. (6) HTN (hypertension) Current Visit: Yes Status: Chronic Plan: RAISE LOSARTAN AND ADD HYDRALAZINE BP IS STILL QUITE HIGH AT 170 SYSTOLIC. (7) Pulmonary fibrosis Current Visit: Yes Status: Chronic Plan: WITH ACUTE SUPERADDED INFECTION THAT HAS DONE WELL WITH ZOSYN PE ON TOP OF THAT HAS IMPROVED CLINICALLY. CHRONIC COUGH CONTINUES AT THE SAME TIME BOYFRIEND SMOKES HEAVY IN THE HOUSE.
[2018-04-18] MEDS: PIPER/TAZO/NS 3.375gm 3.375 GM/100 ML BAG IV SCH ×2 (00:34→08:51)
[2018-04-18 04:16] LABS: Absolute Monocytes 1.8 K/uL (0.1-1.3); Absolute Neutrophil 10.2 K/uL (1.8-8.0); Basophils % 0.3 % (0-1.3); Hematocrit 38.2 % (36.0-45.0); Lymphocytes % 36.4 % (15.3-44.8); MCH 30.2 pg (27.0-35.0); MPV 8.3 fL (7.6-11.3); Monocytes % 9.2 % (3.3-12.3)
[2018-04-18 04:17] LABS: Protime INR 2.54
[2018-04-18 04:29] LABS: Potassium 4.2 mmol/L (3.5-5.1)
[2018-04-18] MEDS: PANTOPRAZOLE 40MG TABLET PO SCH (05:40)
[2018-04-18] MEDS: LEVOTHYROXINE SOD 0.075 MG TAB PO SCH (05:40)
[2018-04-18] MEDS: ARFORMOTEROL TARTRATE 15 MCG/2 ML VIAL.NEB NEB SCH (07:35)
[2018-04-18] MEDS: ALLOPURINOL 100 MG TAB PO SCH (08:51)
[2018-04-18] MEDS: HYDRALAZINE HCL 25 MG TABLET PO SCH (08:51)
[2018-04-18] MEDS: LOSARTAN POTASSIUM 50 MG TABLET PO SCH (08:51)
[2018-04-18] MEDS: POTASSIUM CL SA 10 MEQ TAB PO SCH (08:51)
[2018-04-18] MEDS: ASPIRIN EC 81 MG TAB PO SCH (08:51)
[2018-04-18] MEDS: TOPIRAMATE 100 MG TAB PO SCH (08:51)
[2018-04-18] MEDS: CITALOPRAM 10 MG TABLET PO SCH (08:51)
[2018-04-18] MEDS: CHOLECALCIFEROL PO SCH (08:54)
[2018-04-18 09:36] VITALS: O2SAT 94
[2018-04-18 12:12] VITALS: BP 137/61; TEMP 98.4
--- NOTE | 2018-04-18 12:48 | P.DS ---
Admission Date: 04/10/18 Discharge Date: 04/18/18 Disposition: ROUTINE DISCHARGE Discharge Condition: FAIR Reason for Admission: DEEP COUGH HAS IMPROVED - Problems (1) CHF (congestive heart failure) Current Visit: Yes Status: Acute Qualifiers: Heart failure type: diastolic (2) Acute bronchitis Onset Date: 04/11/18 Current Visit: Yes Status: Chronic (3) Hypoxemia Onset Date: 04/11/18 Current Visit: Yes Status: Acute (4) Pulmonary embolism Current Visit: Yes Status: Acute Qualifiers: Pulmonary embolism type: other (5) Leukocytosis Current Visit: Yes Status: Acute (6) HTN (hypertension) Current Visit: Yes Status: Chronic (7) Pulmonary fibrosis Current Visit: Yes Status: Chronic Brief History of Present Illness: MS. DOWNING HAS FAILED OUTPATIENT THERAPY FOR RECURRENT BRONCHITIS. SHE HAS DYSPNEA AT REST AND EXERSION. SHE HAS NO CHEST PAIN. COUGH AND YELLOW SPUTUM. HAS UNIMPROVED BRONCHITIS ON OUTPATIENT BASIS. BESIDES DIFFUSE WHEEZING SHE ALSO HAS PE ON CT SCAN. THIS IS HER SECOND UNPROVOKED EPISODE OF PE. SHE WILL BE ON XARELTO FOR LIFE TIME. I HAD [facility] FILL OUT FORMS FOR XARELTO AND SHE NOW HAS APPROVAL OF IT. SHE IS ALSO GIVEN LEVAQIN AND ANORO IN. Vital Signs/Physical Exam: Temp Pulse Resp BP Pulse Ox 98.4 F 71 20 137/61 94 04/18/18 12:00 04/18/18 12:00 04/18/18 12:00 04/18/18 12:00 04/18/18 12:00 Laboratory Data at Discharge: WBC 19.2 K/uL (4.3-10.9) H D 04/18/18 03:56 Hgb 12.7 g/dL (12.0-15.0) 04/18/18 03:56 Hct 38.2 % (36.0-45.0) 04/18/18 03:56 Plt Count 350 K/uL (152-406) 04/18/18 03:56 PT 30.2 SECONDS (9.5-12.5) H 04/18/18 03:56 INR 2.54 04/18/18 03:56 Sodium 143 mmol/L (136-145) 04/18/18 03:56 Potassium 4.2 mmol/L (3.5-5.1) 04/18/18 03:56 BUN 33 mg/dL (7-18) H 04/18/18 03:56 Creatinine 0.90 mg/dL (0.55-1.3) 04/18/18 03:56 Glucose 93 mg/dL (74-106) 04/18/18 03:56 Magnesium 2.3 mg/dL (1.8-2.4) 04/10/18 19:00 Total Bilirubin 0.2 mg/dL (0.2-1.0) 04/10/18 19:00 AST 18 U/L (15-37) 04/10/18 19:00 ALT 17 U/L (12-78) 04/10/18 19:00 Alkaline Phosphatase 121 U/L (45-117) H 04/10/18 19:00 Troponin I < 0.02 ng/mL (0.0-0.045) 04/11/18 03:26 Home Medications: Citalopram Hydrobromide [Citalopram HBr] 20 mg PO DAILY 08/02/12 Levothyroxine Sodium [Levothroid] 75 mcg PO DAILY 08/02/12 Omeprazole 20 mg PO DAILY 08/02/12 Allopurinol [Zyloprim] 100 mg PO DAILY 03/07/18 Cholecalciferol (Vitamin D3) [D3-50] 1 cap PO DAILY 04/11/18 Topiramate [Topamax*] 1 tab PO DAILY 04/11/18 Rivaroxaban [Xarelto] 20 mg PO DAILY #30 tab 04/18/18 Umeclidinium Brm/Vilanterol Tr [Anoro Ellipta 62.5-25 Mcg INH] 1 each IH DAILY # 1 blst.w.dev 04/18/18 levoFLOXacin [Levaquin*] 500 mg PO DAILY #7 tab 04/18/18 New Medications: levoFLOXacin [Levaquin*] 500 mg PO DAILY #7 tab Rivaroxaban [Xarelto] 20 mg PO DAILY #30 tab Umeclidinium Brm/Vilanterol Tr [Anoro Ellipta 62.5-25 Mcg INH] 1 each IH DAILY # 1 blst.w.dev
== END 2018-04-18 14:00 | disposition home or self-care (01) | DRG 175 ==
LOC: ER 17:35 → ERHOLD 21:35 → 4TH 22:15
PROVIDERS: ADMIT Internal Medicine; ATTEND Internal Medicine
DX: I26.99 Other pulmonary embolism without acute cor pulmonale (principal); I50.31 Acute diastolic (congestive) heart failure; Z68.41 Body mass index [BMI] 40.0-44.9, adult; J20.9 Acute bronchitis, unspecified; R09.02 Hypoxemia; I27.29 Other secondary pulmonary hypertension; D72.829 Elevated white blood cell count, unspecified; J84.10 Pulmonary fibrosis, unspecified; I11.0 Hypertensive heart disease with heart failure; Z77.22 Contact with and (suspected) exposure to environmental tobacco smoke (acute) (chronic); R05 Cough; E86.0 Dehydration; E03.9 Hypothyroidism, unspecified; M10.9 Gout, unspecified; K21.9 Gastro-esophageal reflux disease without esophagitis; F32.9 Major depressive disorder, single episode, unspecified; Z87.891 Personal history of nicotine dependence; E66.9 Obesity, unspecified
CPT/HCPCS: 36415; 71045; 71046; 71275; 80048; 80076; 81241; 82550; 82553; 83090; 83735; 83880; 84484; 85025; 85302; 85305; 85306; 85610; 87070; 87205; 93005; 93306; 94640; 94760; 96374; 99285; J0692; J1650; J1940; J2543; J2920; J2930; J7605; Q9967

== ENCOUNTER 2018-06-27 07:32 | Emergency (ER) | payer OTHER ==
--- OUTSIDE RECORDS SUMMARY | 2018-06-27 08:26 | XMS REPORT | Clinical Summary ---
:[address] [facility] Address [address] [place] [address] Phone Care Team Providers Name Role Phone [...] specified vein of right lower 2015 extremity ([facility]) Closed left ankle fracture 03/29/2016 Pulmonary embolism ([facility]) 03/28/2016 Social History Tobacco Use Types Packs/Day Years Used Date Passive Smoke Exposure - Never Smoker Alcohol Use Drinks/Week oz/Week Comments Yes 1 Glasses of wine 0.6 says one per month Sex Assigned at Date Recorded Not on file Last Filed Vital Signs Not on file Plan of Treatment Not on file Results Not on fileafter 06/26/2017
--- OUTSIDE RECORDS SUMMARY | 2018-06-27 08:26 | XMS REPORT | Clinical Summary ---
:1940 Author Organization [facility] Address [address] [place] [id number] Care Team Providers Name Role Phone Pete [...] Health Maintenance Due Date Last Done Comments JOANNAGRIX VACCINE (#1) 01/22/1988 ZOSTER VACCINE 1998 PNEUMOCOCCAL POLYSACCHARIDE VACCINE AGE 65 AND OVER 2003 PNEUMOCOCCAL-13 2003 INFLUENZA VACCINE 05/03/2018 Results Not on fileafter 06/26/2017 Insurance Payer Benefit Plan / Group Subscriber ID Type Phone Address MEDICARE MEDICARE PART A AND B xxxxxxxxxxx Medicare [place], [place] [employer] OF xxxxxxxxxx [employer] [place] [phone] [place] [id number]
--- NOTE | 2018-06-27 09:11 | RAD REPORT ---
EXAM DESCRIPTION: RAD - Tib Fib Right - 06/27/2018 8:39 am CLINICAL HISTORY: Right leg pain status post fall. FINDINGS: No fracture is seen Diffuse edema is present within the subcutaneous tissues
[2018-06-27] MEDS ORDERED: DERMABOND SKIN ADHESIVE TOP ONE (09:21)
--- NOTE | 2018-06-27 09:32 | EDPHYS ---
Physician Documentation [facility] Name: Pauly Alex Age: 78 yrs Sex: Female : 1940 Arrival Date: 06/27/2018 Time: 07:35 Bed 7 Private MD: Pete Klein V ED Physician Golden Franco HPI: 06/27 14:28 This 78 yrs old Female presents to ER via Wheelchair with complaints of Fall gs Injury, Laceration To Leg. 14:28 Details of fall: The patient fell from an upright position, while walking. Onset: The gs symptoms/episode began/occurred acutely. Associated injuries: The patient sustained right ankle. Severity of symptoms: At their worst the symptoms were mild, in the emergency department the symptoms are unchanged. The patient has experienced a previous episode. Historical: - Allergies: 07:50 No Known Allergies; hb - Home Meds: 07:50 allopurinol 100 mg Oral tab 1 tab once daily [Active]; aspirin 81 mg Oral TbEC 1 tab hb once daily [Active]; citalopram 20 mg tab 1 tab once daily [Active]; Levothroid 75 mcg Oral tab 1 tab once daily [Active]; meloxicam 7.5 mg Oral tab 1 tab once daily [Active]; omeprazole 20 mg Oral cpDR 1 cap once daily [Active]; Vitamin D Oral [Active]; - PMHx: 07:50 Depression; GERD; Gout; Hypothyroidism; Pneumonia; hb - PSHx: 07:50 Thyroid Cyst I/D; knee - left; hb - Immunization history:: Last tetanus immunization: up to date < 5 years ago. - Social history:: Smoking status: . - Ebola Screening: : Patient denies travel to an Ebola-affected area in the 21 days before illness onset. ROS: 14:28 All other systems are negative. gs Exam: 14:28 Head/Face: Normocephalic, atraumatic. Neck: Trachea midline, no thyromegaly or masses gs palpated, and no cervical lymphadenopathy. Supple, full range of motion without nuchal rigidity, or vertebral point tenderness. No Meningismus. Cardiovascular: Regular rate and rhythm with a normal S1 and S2. No gallops, murmurs, or rubs. Normal PMI, no JVD. No pulse deficits. Respiratory: Lungs have equal breath sounds bilaterally, clear to auscultation and percussion. No rales, rhonchi or wheezes noted. No increased work of breathing, no retractions or nasal flaring. Abdomen/GI: Soft, non-tender, with normal bowel sounds. No distension or tympany. No guarding or rebound. No evidence of tenderness throughout. Back: No spinal tenderness. No costovertebral tenderness. Full range of motion. 14:28 Constitutional: The patient appears alert, awake. 14:28 Musculoskeletal/extremity: ROM: no acute changes, Circulation is intact in all extremities. Sensation intact. 14:28 Skin: injury, laceration(s), the wound is approximately 5 cm(s), with a depth of .05 cm(s), of the right ankle. Vital Signs: 07:44 BP 108 / 60; Pulse 62; Resp 20; Temp 98.1; Pulse Ox 96% on R/A; Pain 10/10; hb 08:49 BP 112 / 64; Pulse 63; Resp 17; Pulse Ox 95% on R/A; tw2 09:38 BP 113 / 66; Pulse 64; Resp 17; Pulse Ox 98% on R/A; tw2 Trauma Score (Adult): 07:44 Eye Response: spontaneous(1); Verbal Response: oriented(1); Motor Response: obeys hb commands(2); Systolic BP: > 89 mm Hg(4); Respiratory Rate: 10 to 29 per min(4); Ritesh Score: 15; Trauma Score: 12 Laceration: 14:28 Wound Repair of 5cm ( 2.0in ) subcutaneous laceration to right ankle. Distal gs neuro/vascular/tendon intact. Skin closed with 1-0 Adhesive skin closure using Dermabond. Patient tolerated well. MDM: 07:52 Patient medically screened. gs 14:28 Differential diagnosis: fracture, laceration. Data reviewed: vital signs, nurses notes. Counseling: I had a detailed discussion with the patient and/or guardian regarding: the historical points, exam findings, and any diagnostic results supporting the discharge/admit diagnosis, radiology results. 06/27 07:52 Order name: Tib Fib Right XRAY; Complete Time: 09:13 06/27 07:58 Order name: Misc. Order; Complete Time: 07:58 tw2 Administered Medications: No medications were administered Disposition: 06/27/18 09:30 Discharged to Home. Impression: Laceration without foreign body, right lower leg. - Condition is Stable. - Discharge Instructions: Laceration Care, Adult, Stitches, [place], or Adhesive Wound Closure. - Medication Reconciliation Form, Thank You Letter, Antibiotic Education, Prescription Opioid Use form. - Follow up: Private Physician; When: 2 - 3 days; Reason: Re-evaluation by your physician. Signatures: Dispatcher [employer] EDMS Sharmila Clements RN RN Edith Kidd RN RN tw2 Golden Franco MD MD Corrections: (The following items were deleted from the chart) 09:40 09:30 06/27/2018 09:30 Discharged to Home. Impression: Laceration without foreign body, tw2 right lower leg. Condition is Stable. Forms are Medication Reconciliation Form, Thank You Letter, Antibiotic Education, Prescription Opioid Use. Follow up: Private Physician; When: 2 - 3 days; Reason: Re-evaluation by your physician. gs
--- NOTE | 2018-06-27 09:32 | ER ---
Nurse's Notes [facility] Name: Pauly Alex Age: 78 yrs Sex: Female : 1940 Arrival Date: 06/27/2018 Time: 07:35 Bed 7 Private MD: Pete Klein V Diagnosis: Laceration without foreign body, right lower leg Presentation: 06/27 07:44 Presenting complaint: Mechanical fall from standing approx 1 hr ago. Pt reports she hb tripped and landed on both knees and chin, c/o bilateral knee pain 10/10. Denies LOC. Skin tear to right lateral ankle noted, bleeding controlled. Care prior to arrival: Bleeding of injury controlled. Injury dressed. 07:44 Acuity: KIA 3 hb 07:44 Method Of Arrival: Wheelchair hb 07:56 Transition of care: patient was not received from another setting of care. Onset of tw2 symptoms was June 27, 2018. Risk Assessment: Do you want to hurt yourself or someone else? Patient reports no desire to harm self or others. Initial Sepsis Screen: Does the patient meet any 2 criteria? No. Patient's initial sepsis screen is negative. Does the patient have a suspected source of infection? No. Patient's initial sepsis screen is negative. Historical: - Allergies: 07:50 No Known Allergies; hb - Home Meds: 07:50 allopurinol 100 mg Oral tab 1 tab once daily [Active]; aspirin 81 mg Oral TbEC 1 tab hb once daily [Active]; citalopram 20 mg tab 1 tab once daily [Active]; Levothroid 75 mcg Oral tab 1 tab once daily [Active]; meloxicam 7.5 mg Oral tab 1 tab once daily [Active]; omeprazole 20 mg Oral cpDR 1 cap once daily [Active]; Vitamin D Oral [Active]; - PMHx: 07:50 Depression; GERD; Gout; Hypothyroidism; Pneumonia; hb - PSHx: 07:50 Thyroid Cyst I/D; knee - left; hb - Immunization history:: Last tetanus immunization: up to date < 5 years ago. - Social history:: Smoking status: . - Ebola Screening: : Patient denies travel to an Ebola-affected area in the 21 days before illness onset. Screenin:55 Abuse screen: Denies threats or abuse. Nutritional screening: No deficits noted. tw2 Tuberculosis screening: No symptoms or risk factors identified. Fall Risk None identified. Primary Survey: 07:46 A: Airway: patent. Breathing/Chest: Respiratory pattern: regular, Respiratory effort: hb spontaneous, unlabored, Chest inspection: symmetrical rise and fall of the chest. Circulation: Pulses: palpable . Skin color: pink, Skin temperature: warm, dry. Disability Alert. Assessment: 07:53 General: Appears in no apparent distress. obese, Behavior is calm, cooperative, tw2 appropriate for age. Pain: Complains of pain in right ankle. Neuro: Level of Consciousness is awake, alert, obeys commands, Oriented to person, place, time, situation. Cardiovascular: Denies chest pain, shortness of breath, Capillary refill < 3 seconds Patient's skin is warm and dry. Respiratory: Airway is patent Respiratory effort is even, unlabored, Respiratory pattern is regular, symmetrical. GI: Abdomen is round obese. : No signs and/or symptoms were reported regarding the genitourinary system. EENT: No signs and/or symptoms were reported regarding the EENT system. Derm: laceration noted to lateral right ankle, minimal bleeding noted. Injury Description: Laceration sustained to right ankle is superficial, 0.5 to 2.5 cm long. 07:53 Cardiovascular: Heart tones S1 S2. Respiratory: Breath sounds are clear bilaterally. tw2 08:51 Reassessment: Patient appears in no apparent distress at this time. No changes from tw2 previously documented assessment. Patient and/or family updated on plan of care and expected duration. Pain level reassessed. Patient is alert, oriented x 3, equal unlabored respirations, skin warm/dry/pink. 09:39 Reassessment: Patient appears in no apparent distress at this time. No changes from tw2 previously documented assessment. Patient and/or family updated on plan of care and expected duration. Pain level reassessed. Patient is alert, oriented x 3, equal unlabored respirations, skin warm/dry/pink. Vital Signs: 07:44 BP 108 / 60; Pulse 62; Resp 20; Temp 98.1; Pulse Ox 96% on R/A; Pain 10/10; hb 08:49 BP 112 / 64; Pulse 63; Resp 17; Pulse Ox 95% on R/A; tw2 09:38 BP 113 / 66; Pulse 64; Resp 17; Pulse Ox 98% on R/A; tw2 Trauma Score (Adult): 07:44 Eye Response: spontaneous(1); Verbal Response: oriented(1); Motor Response: obeys hb commands(2); Systolic BP: > 89 mm Hg(4); Respiratory Rate: 10 to 29 per min(4); [place] Score: 15; Trauma Score: 12 ED Course: 07:35 Patient arrived in ED. mr 07:35 Pete Klein MD is Private Physician. mr 07:40 Edith Kidd RN is Primary Nurse. tw2 07:40 Bed in low position. Call light in reach. Pulse ox on. NIBP on. tw2 07:46 Golden Franco MD is Attending Physician. gs 07:46 Triage completed. hb 07:56 Arm band placed on. tw2 08:40 Tib Fib Right XRAY In Process Unspecified. EDMS 09:39 No provider procedures requiring assistance completed. Patient did not have IV access tw2 during this emergency room visit. Administered Medications: No medications were administered Outcome: 09:30 Discharge ordered by . gs 09:39 Discharged to home via wheelchair, with significant other. tw2 09:39 Condition: stable 09:39 Discharge instructions given to patient, Instructed on discharge instructions, follow up and referral plans. wound care, Demonstrated understanding of instructions, follow-up care, wound care. 09:40 Patient left the ED. tw2 Signatures: Dispatcher [employer] PATTIEMS CastorenaTania olivera mr ClementsSharmila, RN RN Edith Kidd, RN RN tw2 Golden Franco MD MD Corrections: (The following items were deleted from the chart) 07:47 07:44 Presenting complaint: Mechanical fall from standing approx 1 hr ago. Pt reports hb she tripped and landed on both knees and chin. Denies LOC. Skin tear to right lateral ankle noted, bleeding controlled. hb 08:50 07:53 Pain: Complains of pain in right ankle tw2 tw2
[2018-06-27 09:49] VITALS: TEMP 98.1
[2018-06-27 09:52] VITALS: BP 113/66; O2SAT 98
== END 2018-06-27 09:40 | disposition home or self-care (01) ==
LOC: ER 07:32
PROC: 0JQQ0ZZ Repair Right Foot Subcutaneous Tissue and Fascia, Open Approach (ICD-10-PCS; principal; 2018-06-27)
DX: S91.011A Laceration without foreign body, right ankle, initial encounter (principal); W18.30XA Fall on same level, unspecified, initial encounter; Y93.01 Activity, walking, marching and hiking; Y92.9 Unspecified place or not applicable; E03.9 Hypothyroidism, unspecified; F32.9 Major depressive disorder, single episode, unspecified; Z79.82 Long term (current) use of aspirin
CPT/HCPCS: 99283

== ENCOUNTER → 2020-07-18 | Day surgery (SDC) | payer OTHER ==
--- OUTSIDE RECORDS SUMMARY | 2020-07-15 10:00 | XMS REPORT | Clinical Summary ---
:1940 Author Organization [facility] Address [address] [place] [address] Care Team Providers Name Role Phone Pete Klein MD Primary Care Provider Allergies No Known Active Allergies Medications Medication Sig Dispensed Refills Start Date End Date Status levothyroxine Take 75 mcg by 0 A ctive (SYNTHROID, LEVOXYL) 75 mouth every mcg tablet morning. omeprazole (PriLOSEC) 20 Take 20 mg by 0 Active MG capsule mouth daily. topiramate (TOPAMAX) 100 Take 100 mg by 0 Active MG tablet mouth 2 (two) times a day. allopurinol (ZYLOPRIM) Take 300 mg by 0 Active 300 MG tablet mouth daily. citalopram (CeleXA) 20 Take 20 mg by 0 Active MG tablet mouth daily. Active Problems Problem Noted [...] call for YAG OU. DL form filled. Surgical History Surgery Date Site/Laterality Comments CATARACT EXTRACTION Medical History Medical History Date Comments Dry eyes Social History Tobacco Use Types Packs/Day Years Used Date Never Smoker Sex Assigned at Date Recorded Not on file Last Filed Vital Signs Not on file Plan of Treatment Health Maintenance Due Date Last Done Comments SHINGLES VACCINES (#1) 01/22/1988 65+ PNEUMOCOCCAL VACCINE (1 of 1 - PPSV23) 2003 INFLUENZA VACCINE 05/03/2020 Results Not on fileafter 07/15/2019 Insurance Payer Benefit Plan / Subscriber ID Effective Dates Phone Addre ss Type Group MEDICARE MEDICARE PART A [id number] 2003-[place], [place] Medicare AND B t [employer] [facility] [id number] 2013-[place] Commercial INS CO OF [place] Advance Directives For more information, please contact: [phone] Type Date Recorded Patient Virologist Explanati on Advance Directives, Living Will and Medical Power of Shirt Hemmer
--- OUTSIDE RECORDS SUMMARY | 2020-07-15 10:00 | XMS REPORT | Clinical Summary ---
:[address] [facility] Address [address] [place] [address] Care Team Providers Name Role Phone Ernie Ly Primary Care Provider Allergies No Known Allergies Medications Medication Sig Dispensed Refills Start Date End Date Status omeprazole (PRILOSEC) Take 20 mg by 0 Active 20 MG capsule mouth daily. allopurinol (ZYLOPRIM) Take 300 mg by 0 Active 100 MG mouth daily . tabletIndications: gout citalopram (CELEXA) 20 Take 20 mg by 0 Active MG tablet mouth daily. levothyroxine Take 75 mcg by 0 A ctive (SYNTHROID, LEVOTHROID) mouth Every 75 MCG tablet morning on an empty stomach. aspirin 81 MG EC tablet Take 81 mg by 0 Active mouth daily. cholecalciferol, Take 50,000 Units 0 Active vitamin D3, 50,000 unit by mouth once a Tab week. topiramate (TOPAMAX) Take 100 mg by 0 Active 100 MG tablet mouth 2 (two) times daily. apixaban (ELIQUIS) 5 mg 10 mg po bid x 7 60 tablet 0 6 Active Tab tablet Then 5 mg po bid. Active Problems Problem Noted Date UTI (urinary tract infection) 04/01/2016 Asthmatic bronchitis without complication 04/01/2016 Acute deep vein thrombosis of right tibial vein 2015 Acute deep vein thrombosis of right popliteal vein Acute deep vein thrombosis (DVT) of other specified ve in of right lower 03/29/2016 extremity Closed left ankle fracture 03/29/2016 Pulmonary embolism 03/28/2016 Social History Tobacco Use Types Packs/Day Years Used Date Passive Smoke Exposure - Never Smoker Alcohol Use Drinks/Week oz/Week Comments Yes 1 Glasses of wine 1.0 says one per [facility] Sex Assigned at Date Recorded Not on file Last Filed Vital Signs Not on file Plan of Treatment Not on file Results Not on fileafter 07/15/2019 Insurance Payer Benefit Plan / Subscriber ID Effective Dates Phone Addre ss Type Group MEDICARE MEDICARE A B [id number] 2003-Present Medicare [place] GENERIC MEDICARE [id number] 2015-Present Medigap SUPPLEMENT/AARTI SUPPLEMENT VIDUAL Advance Directives For more information, please contact: [phone] Code Status Date Activated Date Inactivated Comments Full Code 03/28/2016 5:06 PM 04/01/2016 6:12 PM This code status was determined by: Patient
--- OUTSIDE RECORDS SUMMARY | 2020-07-15 10:01 | XMS REPORT | Continuity of Care Document ---
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 LLL plug intact, VERONIQUE plug removed due to epiphora. H/O Restasis use.Last Assessmen t & Plan: RUL RLL puncta atretic. LLL plug intact, VERONIQUE plug removed due to epiphora. 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 20/40 with MRx, given.If NI or cannot pass DL test, then call for YAG OU.DL form filled. UTI UTI Disease Active [facility] ([facility]inary (ur[facility] 04-01 [facility] - tract tract 00:00: Medical infection) infection) 00 Ce nter Asthmatic Asthmatic Disease Active [facility] bronchitis bronchitis 04-01 [facility] kes - without without 00:00: Medical complicati complicati 00 Ce nter on on Acute deep Acute deep Disease Active [facility] vein vein 03-31 [facility] - thrombosis thrombosis 00:00: Me dical of right of right 00 Center tibial tibial vein vein Acute deep Acute deep Disease Active [facility] vein vein - [facility] - thrombosis thrombosis 00:00: Me dical of right of right 00 Center popliteal popliteal vein vein Acute deep Acute deep Disease Active [facility] vein vein 03-29 [facility] - thrombosis thrombosis 00:00: Me dical (DVT) of (DVT) of 00 Center other other specified specified vein of vein of right right lower lower extremity extremity Closed Closed Disease Active [facility] left ankle left ankle 03-29 Deb kes - fracture fracture 00:00: Medica l 00 Center Pulmonary Pulmonary Disease Active [facility] embolism embolism 03-28 [facility] - 00:00: Medical 00 Center Allergies, Adverse Reactions, Alerts This patient has no known allergies or adverse reactions. Social History Social Habit Start Date Stop Date Quantity Comments Source Sex Assigned At [facility] Alcohol intake 2016-03-28 2016-03-[address] [facility] Radha santos [facility] - 00:00:00 00:00:00 of alcohol [facility] (finding) Alcohol Comment 2016-03-28 2016-03-28 says one per [facility] - 00:00:00 00:00:00 [facility] Smoking Status Start Date Stop Date Source Never smoker [facility] Medications Ordered Filled Start Stop Current Ordering Indication Dosage Frequency Signature Comments Components Source Medication Medication Date Date Medication? Clinician (SIG) Name Name levothyroxi Yes 75ug QD Take 75 Ruth ston ne 5-10 mcg by Claritza (SYNTHROID, 14:19: mouth st LEVOXYL) 75 56 every mcg tablet morning. omeprazole Yes 20mg QD Take 20 mg [place] (PriLOSEC) 5-10 by mouth Metho di 20 MG 14:19: daily. st capsule 56 topiramate Yes 100mg Q.5D Take 100 [place] (TOPAMAX) 5-10 mg by Methodi 100 MG 14:19: mouth 2 st tablet 56 (two) times a day. allopurinol Yes 300mg QD Take 300 [place] (ZYLOPRIM) 5-10 mg by Methodi 300 MG 14:19: mouth st tablet 56 daily. citalopram Yes 20mg QD Take 20 mg [place] (CeleXA) 20 5-10 by mouth Meth jen MG tablet 14:19: daily. st 56 omeprazole Yes 20mg QD Take [address] (PRILOSEC) 6-30 by mouth [facility] - 20 MG 16:12: daily. Medical capsule 33 [place] allopurinol Yes gout 300mg QD Take [address] (ZYLOPRIM) 6-30 mg by [facility] - 100 MG 16:12: mouth Medical tablet 33 daily . [place] citalopram Yes 20mg QD Take [address] (CELEXA) 20 6-30 by mouth Luke s - MG tablet 16:12: daily. Medica l 33 [place] levothyroxi Yes 75ug Take [address] ne 6-30 mcg by [facility] - (SYNTHROID, 16:12: mouth Medic al LEVOTHROID) 33 Every Center 75 MCG morning on tablet an empty stomach. aspirin 81 Yes 81mg QD Take [address] MG EC 6-30 by mouth [facility] - tablet 16:12: daily. [address] cholecalcif 0 Yes [id number] Q7D Take [facility] lakshmi, 6-30 50,000 [facility] - vitamin D3, 16:12: Units by De dical 50,000 unit 33 mouth once Ce nter Tab a week. topiramate 0 Yes 100mg Q.5D Take [address] (TOPAMAX) 6-30 mg by [facility] - 100 MG 16:12: mouth 2 Medical tablet 33 (two) Center times daily. apixaban Yes 10 mg po [facility] (ELIQUIS) 5 6-30 bid x 7 [facility] - mg Tab 00:00: Then 5 mg Medica l tablet 00 po bid. Center Procedures This patient has no known procedures. Plan of Care Planned Activity Planned Date Details Comments Source Future Scheduled 2020-05-03 INFLUENZA VACCINE [place] [facility] 00:00:00 [code = INFLUENZA VACCINE] Future Scheduled 2003 65+ PNEUMOCOCCAL [facility] 00:00:00 VACCINE (1 of 1 - PPSV23) [code = 65+ PNEUMOCOCCAL VACCINE (1 of 1 - PPSV23)] Future Scheduled 1988-01-22 SHINGLES VACCINES (#1) [place] [facility] 00:00:00 [code = SHINGLES VACCINES (#1)] Encounters Start End Encounter Admission Attending Care Care Encounter Source Date/Time Date/Time Type Type Clinicians Facility Department ID 2020-03-14 2020-03-14 CLARKE Mosher [id number] 14:57:41 15:26:08 Visit Alex Nicholson [id number] Elvia [id number] Maisha [phone] [facility] 092 Building Results This patient has no known results.
--- OUTSIDE RECORDS SUMMARY | 2020-07-18 08:38 | XMS REPORT | Clinical Summary ---
:1940 Author Organization [facility] Address [address] [place] [address] Care Team Providers Name Role Phone Ernie [...] of wine 1.0 says one per m [facility] Sex Assigned at Date Recorded Not on file Last Filed Vital Signs Not on file Plan of Treatment Not on file Results Not on fileafter 07/18/2019 Insurance Payer Benefit Plan / Subscriber ID Effective Dates Phone Addre ss Type Group MEDICARE MEDICARE A B [id number] 2003-Present Medicare MCR GENERIC MEDICARE [id number] 2015-Present Medigap SUPPLEMENT/AARTI SUPPLEMENT VIDUAL Advance Directives For more information, please contact: [phone] Code Status Date Activated Date Inactivated Comments Full Code 03/28/2016 5:06 PM 04/01/2016 6:12 PM This code status was determined by: Patient
--- OUTSIDE RECORDS SUMMARY | 2020-07-18 08:38 | XMS REPORT | Continuity of Care Document ---
:1940 Author Organization [facility] t Address [address] [place] [address] Care Team Providers Name Role Phone Ernie RODRÍGUEZ Primary Care Physician Michael RODRÍGUEZ, Gene Attending Clinician Problems Condition Condition Condition Status Onset Resolution Last Treating Co mments Source Name Details Category Date Date Treatment Clinician Date Pseudophak Pseudophak Disease Active Overview : [place] ia ia 5-10 OS Methodi 00:00: 09/07/11 [...] on 00 PCO PCO Disease Active Last [place] (posterior (posterior 5-10 Assessmen Methodi capsular capsular [...] Date Quantity Comments Source Sex Assigned At [facility] Alcohol intake 2016-03-28 2016-03-28 Current drinker [facility] Radha santos [facility] - 00:00:00 00:00:00 of [facility] (finding) Alcohol Comment 2016-03-28 2016-03-28 says one per [facility] - 00:00:00 00:00:00 [facility] Center Smoking Status Start Date Stop Date Source Never smoker [facility] Medications Ordered Filled Start Stop Current Ordering Indication Dosage Frequency Signature Comments Components Source Medication Medication Date Date Medication? Clinician (SIG) Name Name levothyroxi Yes 75ug QD Take 75 [facility] ston ne 5-10 mcg by Methodi (SYNTHROID, 14:19: mouth st LEVOXYL) 75 56 every mcg tablet morning. omeprazole Yes 20mg QD Take 20 mg [place] (PriLOSEC) 5-10 by mouth Metho di 20 MG 14:19: daily. st capsule 56 topiramate 2017-0 Yes 100mg Q.5D Take 100 [place] (TOPAMAX) 5-10 mg by Methodi 100 MG 14:19: mouth 2 st tablet 56 (two) times a day. allopurinol 2017 Yes 300mg QD Take 300 [place] (ZYLOPRIM) 5-10 mg by Methodi 300 MG 14:19: mouth st tablet 56 daily. citalopram Yes 20mg QD Take 20 mg [place] (CeleXA) 20 5-10 by mouth Meth jen MG tablet 14:19: daily. st 56 omeprazole 2015- Yes 20mg QD Take [address] (PRILOSEC) 6-30 by mouth [facility] - 20 MG 16:12: daily. Medical capsule 33 [place] allopurinol Yes gout 300mg QD Take [address] (ZYLOPRIM) 6-30 mg by [facility] - 100 MG 16:12: mouth Medical tablet 33 daily . [place] citalopram Yes 20mg QD Take [address] (CELEXA) 20 6-30 by mouth Luke s - MG tablet 16:12: daily. Medica l [address] [place] [address] levothyroxi Yes 75ug Take [address] ne 6-30 mcg by [facility] - (SYNTHROID, 16:12: mouth Medic al LEVOTHROID) 33 Every Center 75 MCG morning on tablet an empty stomach. aspirin 81 Yes 81mg QD Take [address] MG EC 6-30 by mouth [facility] - tablet 16:12: daily. [address] cholecalcif 0 Yes [id number] Q7D Take [facility] lakshmi, 6-30 50,000 [facility] - vitamin D3, 16:12: Units by Ia dical 50,000 unit 33 mouth once Ce nter Tab a week. topiramate 2015-0 Yes 100mg Q.5D Take [address] (TOPAMAX) 6-30 mg by [facility] - 100 MG 16:12: mouth 2 Medical tablet 33 (two) Center times daily. apixaban 2015-0 Yes 10 mg po [facility] (ELIQUIS) 5 6-30 bid x 7 [facility] - mg Tab 00:00: Then 5 mg Medica l tablet 00 po bid. Center Procedures This patient has no known procedures. Plan of Care Planned Activity Planned Date Details Comments Source Future Scheduled 2020-05-03 INFLUENZA VACCINE [place] [facility] 00:00:00 [code = INFLUENZA VACCINE] Future Scheduled 2003 65+ PNEUMOCOCCAL [facility] 00:00:00 VACCINE (1 of 1 - PPSV23) [code = 65+ PNEUMOCOCCAL VACCINE (1 of 1 - PPSV23)] Future Scheduled 1988-01-22 [facility]INES (#[facility] 00:00:00 [code = SHINGLES VACCINES (#1)] Encounters Start End Encounter Admission Attending Care Care Encounter Source Date/Time Date/Time Type Type Clinicians Facility Department ID 2020-03-14 2020-03-14 CLARKE Mosher [id number] 14:57:41 15:26:08 Visit Alex Nicholson [id number] Elvia [id number] Maisha [phone] [facility] 092 Building Results This patient has no known results.
--- OUTSIDE RECORDS SUMMARY | 2020-07-18 08:38 | XMS REPORT | Clinical Summary ---
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
--- NOTE | 2020-07-18 13:40 | RAD REPORT ---
EXAM DESCRIPTION: US - Breast Core BX w/US Guidance - 07/18/2020 11:16 am CLINICAL HISTORY: ICD N63.24 COMPARISON: December 28, 2018 ultrasound TECHNIQUE: The risks, benefits alternatives to the procedure were explained to the patient and infor med consent obtained. Skin and subcutaneous and breast tissues anesthetized with lidocaine. Under sonographic guidance, two 14 gauge vacuum assisted core biopsies of the 6 millimeter mass withi n the upper left breast obtained. 2 centimeter specimens taken. Materials given to pathology. Subsequently a localizing clip was placed into the mass. Patient experienced no immediate complication IMPRESSION: Vacuum assisted core biopsies of the left breast mass
== END ==
LOC: DS 07-15 09:48
PROVIDERS: ATTEND Surgery
DX: N63.24 Unspecified lump in the left breast, lower inner quadrant (principal)
CPT/HCPCS: 19083; 88305

== ENCOUNTER 2020-09-03 07:59 | Day surgery (SDC) | payer OTHER ==
--- NOTE | 2020-09-01 17:55 | RAD REPORT ---
EXAM DESCRIPTION: Faith Hebert And Chichi (2 Views)09/01/2020 5:28 pm CLINICAL HISTORY: Cough COMPARISON: 2018 FINDINGS: The lungs appear clear of acute infiltrate. The heart is borderline enlarged. An rods are in place IMPRESSION: No acute abnormalities displayed
[2020-09-01 18:00] LABS: Potassium 4.1 mmol/L (3.5-5.1)
[2020-09-01 18:18] LABS: Absolute Lymphocytes (CBC) 4.1 K/uL (0.7-4.9); Basophils % 0.7 % (0-1.3); Hematocrit 37.1 % (36.0-45.0); Lymphocytes % 37.5 % (15.3-44.8); MPV 9.4 fL (7.6-11.3); RBC Red Blood Cell Count 3.85 M/uL (3.86-4.86)
--- NOTE | 2020-09-02 10:17 | EKG ---
Test Date: 2020-09-01 Test Time: 17:00:35 Cribber: VENITA MEASUREMENT RESULTS: Intervals: Rate: 53 PA: 206 QRSD: 88 QT: 440 QTc: 412 [place]: P: 48 PA: 206 QRS: -23 T: 22 INTERPRETIVE STATEMENTS: Sinus bradycardia Nonspecific ST and T wave abnormality Abnormal ECG Compared to ECG 04/10/2018 18:44:48 ST (T wave) deviation now present Sinus rhythm no longer present Myocardial infarct finding no longer present Electronically Signed On 09-02-20 10:16:26 LEVER TENDER by Garrett Pete
--- OUTSIDE RECORDS SUMMARY | 2020-09-03 08:16 | XMS REPORT | Clinical Summary ---
:1940 Author Organization [facility] Address [address] [place] [address] Care Team Providers Name Role Phone Ernie [...] of wine 1.0 says one per m [facility] Sex Assigned at Date Recorded Not on file Last Filed Vital Signs Not on file Plan of Treatment Not on file Results Not on fileafter 09/03/2019 Insurance Payer Benefit Plan / Subscriber ID Effective Dates Phone Addre ss Type Group MEDICARE MEDICARE A B [id number] 2003-Present Medicare MCR GENERIC MEDICARE [id number] 2015-Present Medigap SUPPLEMENT/AARTI SUPPLEMENT VIDUAL Advance Directives For more information, please contact: [phone] Code Status Date Activated Date Inactivated Comments Full Code 03/28/2016 5:06 PM 04/01/2016 6:12 PM This code status was determined by: Patient
--- OUTSIDE RECORDS SUMMARY | 2020-09-03 08:16 | XMS REPORT | Continuity of Care Document ---
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 - 00:00:00 00:00:00 of [facility] (finding) Alcohol Comment 2016-03-28 2016-03-28 says one per [facility] - 00:00:00 00:00:00 [facility] Smoking Status Start Date Stop Date Source Never smoker [facility] Medications Ordered Filled Start Stop Current [...] 20 MG 16:12: daily. Medical capsule 33 [place] allopurinol Yes gout 300mg QD Take [address] (ZYLOPRIM) 6-30 mg by [facility] - 100 MG 16:12: mouth Medical tablet 33 daily . [place] citalopram Yes 20mg QD Take [address] (CELEXA) 20 6-30 by mouth Luke s - MG tablet 16:12: daily. Medica l [address] [place] [address] levothyroxi Yes 75ug Take [address] ne 6-30 mcg by [facility] - (SYNTHROID, 16:12: mouth Medic al LEVOTHROID) 33 Every Center 75 MCG morning on tablet an empty stomach. aspirin 81 Yes 81mg QD Take [address] MG EC 6-30 by mouth [facility] - tablet 16:12: daily. [address] cholecalcif 0 Yes [id number] Q7D Take [facility] l[facility]mi, 6-30 50,000 [facility] - vitamin D3, 16:12: Units by Nd dical 50,000 unit 33 mouth once Ce [...] Future Scheduled 2020-05-03 INFLUENZA VACCINE [place] [facility] 00:00:00 [code = INFLUENZA VACCINE] Future Scheduled 2003 65+ PNEUMOCOCCAL [facility] 00:00:00 VACCINE (1 of 1 - PPSV23) [code = 65+ PNEUMOCOCCAL VACCINE (1 of 1 - PPSV23)] Future Scheduled 1988-01-22 [facility]IN[facility] 00:00:00 [code = SHINGLES VACCINES (#1)] Encounters Start End Encounter Admission Attending Care Care Encounter Source Date/Time Date/Time Type Type Clinicians Facility Department ID 2020-03-14 2020-03-14 CLARKE Mosher [id number] 14:57:41 15:26:08 Visit Alex Nicholson [id number] Elvia [id number] Maisha [phone] [facility] 092 Building Results This patient has no known results.
--- OUTSIDE RECORDS SUMMARY | 2020-09-03 08:16 | XMS REPORT | Clinical Summary ---
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
[2020-09-03] MEDS ORDERED: Ringers Lactate 1,000 ML IV ONE (08:26)
[2020-09-03] MEDS ORDERED: CEFAZOLIN/SWI 1gm 1 GM/10 ML SYR ONE (08:26)
--- NOTE | 2020-09-03 09:55 | RAD REPORT ---
EXAM DESCRIPTION: US - Brst,Preop NL Wire Init w/Guid - 09/03/2020 9:42 am CLINICAL HISTORY: N Left breast carcinoma. COMPARISON: Breast Core BX w/US Guidance dated 07/18/2020 FINDINGS: Preoperative diagnosis: Left breast carcinoma. Post operative diagnosis: Same. Conscious Sedation: None Fluoroscopy time: None Contrast used: None Estimated blood loss: Minimal The left was prepped and draped in the usual sterile fashion. 1% lidocaine was infiltrated into the s ubcutaneous tissues for local anesthesia. Real time ultrasound scanning of the left breast demonstrat ed small mass 11 o'clock position containing a biopsy clip.. Under ultrasound guidance, using a preop erative wire localization wire, guidewire was placed with its tip within the mass. There were no comp lications. Patient was then transferred to the surgical area. Position of the wire was discussed with Dr. Orozco. IMPRESSION: Successful ultrasound-guided preoperative left breast wire localization.
[2020-09-03] MEDS ORDERED: propofoL 200 MG/20 ML VIAL IV ONE (10:34)
[2020-09-03] MEDS ORDERED: MIDAZOLAM HCL 2 MG/2 ML INJ ONE (10:34)
[2020-09-03] MEDS ORDERED: LIDOCAINE 1% MPF 5 ML VIAL ONE (10:34)
[2020-09-03] MEDS ORDERED: ROCURONIUM 50 MG/5 ML VIAL IV ONE (10:35)
[2020-09-03] MEDS ORDERED: METHYLENE BLUE 0.5% 10 ML AMP ONE (10:40)
[2020-09-03] MEDS ORDERED: SUCCINYLCHOLINE 20 MG/ML (10 ML) IV ONE (10:44)
[2020-09-03] MEDS ORDERED: FENTANYL CITR 250 MCG/5 ML ONE (10:58)
[2020-09-03] MEDS ORDERED: EPHEDRINE SULF 50 MG/ML VIAL ONE (11:22)
[2020-09-03] MEDS ORDERED: NS 0.9% VIAL 10 ML ONE (11:22)
[2020-09-03] MEDS ORDERED: KETOROLAC 30 MG/ML INJ ONE (11:26)
[2020-09-03] MEDS ORDERED: dexAMETHasone 10 MG/ML VIAL ONE (11:26)
[2020-09-03] MEDS ORDERED: ONDANSETRON 4 MG/2 ML VIAL ONE (11:50)
[2020-09-03] MEDS ORDERED: GLYCOPYRROLATE 0.2 MG/ML SYR ONE (12:16)
[2020-09-03] MEDS: Ringers Lactate 1,000 ML IV ONE ×2 (13:31→13:45)
[2020-09-03] MEDS ORDERED: FENTANYL CITR 100 MCG/2 ML ONE (14:00)
[2020-09-03] MEDS ORDERED: CODEINE 30MG/APAP 300MG TAB ONE (15:21)
[2020-09-03] MEDS ORDERED: CODEINE 30MG/APAP 300MG TAB PO ONE (15:30)
[2020-09-03 15:51] VITALS: BP 152/45; TEMP 96.6; O2SAT 96
--- NOTE | 2020-09-03 15:53 | OP ---
Date of Procedure: 09/03/2020 Surgeon: Ever Orozco MD Stewardess Supervisor: LACHO Ortega Preoperative Diagnosis: Left breast cancer. Postoperative Diagnosis: Left breast cancer. Procedures: Needle localization, left breast mastectomy, sentinel node biopsy on the left side and r ight breast simple mastectomy. Estimated Blood Loss: Minimal. Specimen: Left sentinel nodes negative for metastatic disease left breast and margins free right joe ast. Findings: As above. Anesthesia: General. Complications: None. Drains: DANDRE #10 flat x2, one on each side. Disposition: The patient tolerated the procedure in stable condition, taken to Recovery in good gene ral condition. Procedure In Detail: The patient was brought to the OR and placed in supine position. General anest hesia begun and then under sterile condition, methylene blue was injected in the left periareolar reg ion and the breast massaged, and then the patient was prepped and draped in usual sterile fashion. T hen, a counter for the sentinel node was utilized in a standard fashion and a blue lymph node identif ied in the left axilla. All the counts were recorded in medical record. A 3 cm incision was made in the axilla over the lymph node and subcutaneous tissue was divided and the node was identified, exci sed, and sent to Pathology. No evidence of metastatic disease was done. Wound was irrigated. Bleed ing was controlled with cautery. A 2-0 chromic was used to approximate the subcutaneous tissue and c lose the skin. Then, I ellipsed the skin approximately 20 x 10 cm made where the needle was include that in it as well and then good margins were grossly taken and then flaps were created superiorly to the clavicle, laterally to the anterior border of the latissimus dorsi muscle, and then medially to the sternal border and then inferiorly to the inframammary fold and then all breast tissue off the pe ctoralis fascia was removed and sent to pathology and margins were free. The entire wound was irriga catie. Bleeding was controlled with cautery. A Lyle-Jasso drain #10 flat was placed and secured wi th 3-0 nylon over and under the flap and then 2-0 chromic and 3-0 chromic were used to approximate th e subcutaneous tissue and close the skin. Same exact simple mastectomy occurred on the right side af ter which a sterile dressing was applied. The patient was awakened, taken to Recovery in good genera l condition. Discharge Note: The patient will go to Day Surgery and home when stable. Disposition: Home. Condition: Stable. Discharge Instructions: Resume home medications and diet. Activity as tolerated. No heavy lifting. Keep dressing clean and dry. Sponge bathe only. Tylenol No.3 one tablet p.o. q.4 p.r.n. pain, Kef sariah 500 mg p.o. q.6. Record DANDRE output q.12. Bring record to the office. Strip tubing p.r.n. Incen tive spirometry as ordered. /MODL Voice ID: [id number] Report ID: [id number]
== END 2020-09-03 16:00 | disposition home or self-care (01) ==
LOC: OR 07:59
PROVIDERS: ATTEND Surgery
PROC: 07B60ZX Excision of Left Axillary Lymphatic, Open Approach, Diagnostic (ICD-10-PCS; 2020-09-03)
PROC: 0HTV0ZZ Resection of Bilateral Breast, Open Approach (ICD-10-PCS; principal; 2020-09-03 09:00)
DX: D05.12 Intraductal carcinoma in situ of left breast (principal); Z20.828 Contact with and (suspected) exposure to other viral communicable diseases; I10 Essential (primary) hypertension; E07.9 Disorder of thyroid, unspecified; Z87.891 Personal history of nicotine dependence; M10.9 Gout, unspecified; Z86.718 Personal history of other venous thrombosis and embolism
CPT/HCPCS: 19303; 38525; 93005; 85025; 80048; 36415; 88329; 88307; 88333; 71046; 19285; U0002; J2704; J0330; J2250; J3010 ×2; J1100; J0690; J7120 ×2; J2405

== ENCOUNTER 2020-10-31 17:10 | Inpatient (IN) | payer OTHER ==
--- OUTSIDE RECORDS SUMMARY | 2020-10-31 17:11 | XMS REPORT | Clinical Summary ---
:1940 Author Organization [facility] Address [address] [place] [address] Care Team Providers Name Role Phone Alvaro Klein Primary Care Provider Allergies No Known Allergies [...] of wine 1.0 says one per m [facility] Sex Assigned at Date Recorded Not on file Last Filed Vital Signs Not on file Plan of Treatment Not on file Results Not on fileafter 10/31/2019 Insurance Payer Benefit Plan / Subscriber ID Effective Dates Phone Addre ss Type Group MEDICARE MEDICARE A B [id number] 2003-Present Medicare MCR GENERIC MEDICARE [id number] 2015-Present Medigap SUPPLEMENT/AARTI SUPPLEMENT VIDUAL Advance Directives For more information, please contact: [phone] Code Status Date Activated Date Inactivated Comments Full Code 03/28/2016 5:06 PM 04/01/2016 6:12 PM This code status was determined by: Patient
--- OUTSIDE RECORDS SUMMARY | 2020-10-31 17:11 | XMS REPORT | Clinical Summary ---
:1940 Author Organization [facility] Address [address] [place] [address] Care Team Providers Name Role Phone Pete [...] Health Maintenance Due Date Last Done Comments COVID-19 VACCINE (1 of 2) 1956 SHINGLES VACCINES (#1) 01/22/1988 65+ PNEUMOCOCCAL VACCINE (1 of 1 - PPSV23) 2003 INFLUENZA VACCINE 05/03/2020 Results Not on fileafter 10/31/2019 Insurance Payer Benefit Plan / Subscriber ID Effective Dates Phone Addre ss Type Group MEDICARE MEDICARE PART A [id number] 2003-Kyle [place] , [place] Medicare AND B t AETNA [employer] [id number] 2013-Kyle [employer] [place] [employer] [place] Advance Directives For more information, please contact: [phone] Type Date Recorded Patient Travel Ot Explanati on Advance Directives, Living Will and 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
--- OUTSIDE RECORDS SUMMARY | 2020-10-31 17:12 | XMS REPORT | Continuity of Care Document ---
:1940 Author Organization [facility] t Address [address] [place] [address] Care Team Providers Name Role Phone Ernie RODRÍGUEZ Primary Care Physician Michael RODRÍGUEZ, Gene Attending Clinician Problems Condition Condition Condition Status Onset Resolution Last Treating Co mments Source Name Details Category Date Date Treatment Clinician Date Pseudophak Pseudophak Disease Active Overview : Winston ia ia 5-10 OS Methodi 00:00: 09/07/11 [...] on 00 PCO PCO Disease Active Last Winston (posterior (posterior 5-10 Assessmen Methodi capsular capsular [...] Date Quantity Comments Source Sex Assigned At [facility] Alcohol intake 2016-03-28 2016-03-28 Current drinker [facility] Radha santos [facility] - 00:00:00 00:00:00 of alcohol [facility] (finding) Alcohol Comment 2016-03-28 2016-03-28 says one per [facility] - 00:00:00 00:00:00 [facility] Smoking Status Start Date Stop Date Source Never smoker [facility] Medications Ordered Filled Start Stop Current Ordering [...] MG 14:19: daily. st capsule 56 topiramate 2017 Yes 100mg Q.5D Take 100 [place] [...] 20 MG 16:12: daily. Medical capsule 33 [place] allopurinol Yes gout 300mg QD Take [address] (ZYLOPRIM) 6-30 mg [facility] - 100 MG 16:12: mouth Medical tablet 33 daily . Alkol citalopram Yes 20mg QD Take [address] (CELEXA) 20 6-30 by mouth Luke s - MG tablet 16:12: daily. Medica l 33 Alkol levothyroxi Yes 75ug Take [address] [facility] [address] ne 6-30 mcg by [facility] - (SYNTHROID, 16:12: mouth Medic al LEVOTHROID) 33 Every Center 75 MCG morning on tablet an empty stomach. aspirin 81 Yes 81mg QD Take [address] MG EC 6-30 by mouth [facility] - tablet 16:12: daily. [facility] 33 Alkol cholecalcif 0 Yes [id number] Q7D Take [facility] l[facility]mi, 6-30 50,000 [facility] - vitamin D3, 16:12: Units by Me dical 50,000 unit 33 mouth once Ce nter Tab a week. topiramate 0 Yes 100mg Q.5D Take [address] (TOPAMAX) 6-30 mg by [facility] - 100 MG 16:12: mouth 2 Medical tablet 33 (two) Center times daily. apixaban 0 Yes 10 mg po [facility] (ELIQUIS) 5 6-30 bid x 7 [facility] - mg Tab 00:00: Then 5 mg Medica l tablet 00 po bid. Center Procedures This patient has no known procedures. Plan of Care Planned Activity Planned Date Details Comments Source Future Scheduled 2020-05-03 INFLUENZA VACCINE [place] [facility] 00:00:00 [code = INFLUENZA VACCINE] Future Scheduled 2003 65+ PNEUMOCOCCAL [place] [facility] 00:00:00 VACCINE (1 of 1 - PPSV23) [code = 65+ PNEUMOCOCCAL VACCINE (1 of 1 - PPSV23)] Future Scheduled 1988-01-22 [facility]IN[facility] 00:00:00 [code = SHINGLES VACCINES (#1)] Future Scheduled 1954 COVID-19 VACCINE (1 of [place] [facility] 00:00:00 2) [code = COVID-19 VACCINE (1 of 2)] Encounters Start End Encounter Admission Attending Care Care Encounter Source Date/Time Date/Time Type Type Clinicians Facility Department ID 2020-03-14 2020-03-14 CLARKE Mosher [id number] 14:57:41 15:26:08 Visit Alex Nicholson [id number] Elvia [id number] Professaliya [phone] nal 092 Building Results This patient has no known results.
[2020-10-31 17:37] LABS: Urine Blood 1+ (NEG); Urine Glucose NEGATIVE (NEG); Urine Protein TRACE (NEG); Urine pH 7.5 (5.0-7.0)
[2020-10-31 18:10] LABS: Urine Bacteria >50 /HPF (<20); Urine RBC <5 /HPF (NONE SEEN)
[2020-10-31 18:39] LABS: Absolute Lymphocytes (CBC) 1.5 K/uL (0.7-4.9); Basophils % 0.4 % (0-1.3); Hematocrit 36.7 % (36.0-45.0); Lymphocytes % 6.2 % (15.3-44.8); MPV 9.2 fL (7.6-11.3); RBC Red Blood Cell Count 3.96 M/uL (3.86-4.86)
[2020-10-31 18:41] LABS: Protime INR 1.29
--- NOTE | 2020-10-31 18:58 | RAD REPORT ---
EXAM DESCRIPTION: RAD - Chest Single View - 10/31/2020 6:25 pm CLINICAL HISTORY: shaking chills Chest pain. COMPARISON: Chest Pa And Lat (2 Views) dated 09/01/2020; Chest Pa And Lat (2 Views) dated 04/17/2018; Chest Single View dated 04/10/2018; Chest Pa And Lat (2 Views) dated 04/03/2018 FINDINGS: Portable technique limits examination quality. The lungs are grossly clear. The heart is mildly enlarged in size. No displaced fractures.Hardware is present lower thoracic spine with mild dextroscoliosis. IMPRESSION: No acute intrathoracic process suspected.
[2020-10-31 19:01] LABS: ALT/SGPT 11 U/L (12-78); AST/SGOT 14 U/L (15-37); Albumin 3.4 g/dL (3.4-5.0); Alkaline Phosphatase 117 U/L (45-117); Amylase 56 U/L (25-115); BUN Blood Urea Nitrogen 28 mg/dL (7-18); Bicarbonate 25 mmol/L (21-32); Bilirubin Direct 0.2 mg/dL (0-0.2); Bilirubin Total 0.6 mg/dL (0.2-1.0); CKMB Creatine Kinase MB < 1.0 ng/mL (0.3-3.6); Creatine Phosphokinase 44 U/L (26-192); Glucose Level 95 mg/dL (74-106); Lipase 153 U/L (73-393); Potassium 3.4 mmol/L (3.5-5.1); Protein, Total 7.6 g/dL (6.4-8.2); Sodium Level 138 mmol/L (136-145); Troponin (Emerg Dept Use Only) < 0.02 ng/mL (0.0-0.045)
[2020-10-31] MEDS ORDERED: CEFTRIAXONE/SWI 1gm 1 GM/10 ML SYR ONE (19:05)
[2020-10-31 19:15] LABS: Blood Morphology Comment NOT SEEN (NOT SEEN); Platelet Estimate ADEQ
--- NOTE | 2020-10-31 19:58 | EDPHYS ---
Physician Documentation [facility] Name: Pauly Alex Age: 80 yrs Sex: Female : 1940 Arrival Date: 10/31/2020 Time: 17:11 Bed 6 Private MD: ED Physician Hernesto Engel HPI: 10/31 18:35 This 80 yrs old Female presents to ER via EMS with complaints of LETHARGY. kdr 18:35 The patient presents with confusion, decreased mental status. Onset: The kdr symptoms/episode began/occurred at an unknown time. Possible causes: sepsis, the patient lives in a senior living. Associated signs and symptoms: Pertinent positives: weakness, The patient admits to generalized shaking without LOC. She can not say for how long. Current symptoms: In the emergency department the patient's symptoms are unchanged from the initial presentation. Patient's baseline: Neuro: alert and fully oriented, Motor: no deficits, Ambulation: walks without assistance, Speech: normal for age. It is unknown whether or not the patient has had similar symptoms in the past. It is unknown whether or not the patient has recently seen a physician. Historical: - Allergies: 17:29 No Known Allergies; jl7 - Home Meds: 17:29 prednisone 10 mg Oral tab [Active]; allopurinol 300 mg oral tab [Active]; citalopram 20 jl7 mg tab 1 tab once daily [Active]; Levothroid 75 mcg Oral tab 1 tab once daily [Active]; spironolactone 25 mg Oral tab [Active]; topiramate 100 mg oral tab [Active]; Xarelto 10 mg oral tab [Active]; bisoprolol fumarate 5 mg oral tab [Active]; Dexilant 60 mg oral CpDB 1 cap once daily [Active]; - PMHx: 17:29 Depression; GERD; Gout; Hypothyroidism; Pneumonia; jl7 - PSHx: 17:29 Thyroid Cyst I/D; knee - left; Mastectomy(September 2020); jl7 - Immunization history:: Adult Immunizations unknown. - Social history:: Smoking status: Patient denies any tobacco usage or history of. ROS: 18:35 Constitutional: Negative for fever, chills, and weight loss, Eyes: Negative for injury, kdr pain, redness, and discharge, ENT: Negative for injury, pain, and discharge, Neck: Negative for injury, pain, and swelling, Cardiovascular: Negative for chest pain, palpitations, and edema, Respiratory: Negative for shortness of breath, cough, wheezing, and pleuritic chest pain, Abdomen/GI: Negative for abdominal pain, nausea, vomiting, diarrhea, and constipation, Back: Negative for injury and pain, : Negative for injury, bleeding, discharge, and swelling, MS/Extremity: Negative for injury and deformity, Skin: Negative for injury, rash, and discoloration, Psych: Negative for depression, anxiety, suicide ideation, homicidal ideation, and hallucinations, Allergy/Immunology: Negative for hives, rash, and allergies, Endocrine: Negative for neck swelling, polydipsia, polyuria, polyphagia, and marked weight changes, Hematologic/Lymphatic: Negative for swollen nodes, abnormal bleeding, and unusual bruising. 18:35 Neuro: Positive for altered mental status, seizure activity, Generalized shaking. Exam: 18:35 Constitutional: This is a well developed, well nourished patient who is awake, alert, kdr and in no acute distress. Head/Face: Normocephalic, atraumatic. Eyes: Pupils equal round and reactive to light, extra-ocular motions intact. Lids and lashes normal. Conjunctiva and sclera are non-icteric and not injected. Cornea within normal limits. Periorbital areas with no swelling, redness, or edema. Neck: Trachea midline, no thyromegaly or masses palpated, and no cervical lymphadenopathy. Supple, full range of motion without nuchal rigidity, or vertebral point tenderness. No Meningismus. Chest/axilla: Normal chest wall appearance and motion. Nontender with no deformity. No lesions are appreciated. Cardiovascular: Regular rate and rhythm with a normal S1 and S2. No gallops, murmurs, or rubs. Normal PMI, no JVD. No pulse deficits. Respiratory: Lungs have equal breath sounds bilaterally, clear to auscultation and percussion. No rales, rhonchi or wheezes noted. No increased work of breathing, no retractions or nasal flaring. Abdomen/GI: Soft, non-tender, with normal bowel sounds. No distension or tympany. No guarding or rebound. No evidence of tenderness throughout. Back: No spinal tenderness. No costovertebral tenderness. Full range of motion. Skin: Warm, dry with normal turgor. Normal color with no rashes, no lesions, and no evidence of cellulitis. MS/ Extremity: Pulses equal, no cyanosis. Neurovascular intact. Full, normal range of motion. Neuro: Awake and alert, GCS 15, oriented to person, place, time, and situation. Cranial nerves II-XII grossly intact. Motor strength 5/5 in all extremities. Sensory grossly intact. Cerebellar exam normal. Normal gait. Psych: Awake, alert, with orientation to person, place and time. Behavior, mood, and affect are within normal limits. 20:10 ECG was reviewed by the Attending Physician. [facility] Vital Signs: 17:11 BP 122 / 67; Pulse 73; Resp 16; Temp 97.4; Pulse Ox 96% ; bp 17:29 BP 106 / 52; Pulse 76; Resp 26; Temp 98.9; Pulse Ox 100% ; Pain 0/10; jl7 18:30 BP 105 / 51; Pulse 74; Resp 25; Pulse Ox 98% ; bp 20:37 BP 104 / 46; Pulse 74; Resp 18; Pulse Ox 98% ; ea MDM: 18:35 Data reviewed: vital signs, nurses notes, lab test result(s), radiologic studies. kdr Counseling: I had a detailed discussion with the patient and/or guardian regarding: the historical points, exam findings, and any diagnostic results supporting the discharge/admit diagnosis, lab results, radiology results. 19:12 Patient medically screened. [facility] 10/31 17:27 Order name: Urine Dipstick--Ancillary (enter results); Complete Time: 18:39 10/31 17:44 Order name: Urine Microscopic Only; Complete Time: 18:39 jl7 10/31 17:49 Order name: Amylase, Serum [facility] 10/31 17:49 Order name: Basic Metabolic Panel [facility] 10/31 17:49 Order name: Blood Culture Adult (2) [facility] 10/31 17:49 Order name: CBC with Diff [facility] 10/31 17:49 Order name: Ckmb [facility] 10/31 17:49 Order name: CPK; Complete Time: 19:27 [facility] 10/31 17:49 Order name: Lactate; Complete Time: 19:27 [facility] 10/31 17:49 Order name: LFT's; Complete Time: 19:27 [facility] 10/31 17:49 Order name: Lipase; Complete Time: 19:27 [facility] 10/31 17:49 Order name: Procalcitonin; Complete Time: 19:27 [facility] 10/31 17:49 Order name: Protime (+inr); Complete Time: 19:27 [facility] 10/31 17:49 Order name: Ptt, Activated; Complete Time: 19:27 [facility] 10/31 17:49 Order name: Troponin (emerg Dept Use Only); Complete Time: 19:27 [facility] 10/31 17:49 Order name: Chest Single View XRAY; Complete Time: 19:27 [facility] 10/31 17:49 Order name: Urine Culture [facility] 10/31 17:50 Order name: Amylase; Complete Time: 19:27 [facility] 10/31 17:50 Order name: Basic Metabolic Panel; Complete Time: 19:27 [facility] 10/31 17:50 Order name: Blood Culture [facility] 10/31 17:50 Order name: CBC with Automated Diff; Complete Time: 19:27 [facility] 10/31 17:50 Order name: CKMB Creatine Kinase MB; Complete Time: 19:27 [facility] 10/31 18:48 Order name: COVID-19 : Document "Date of Symptom Onset" if Symptomatic. [facility] 10/31 19:15 Order name: Manual Differential [facility] 10/31 19:55 Order name: Hand Left 3 View XRAY [facility] 10/31 20:23 Order name: RAD; Complete Time: 21:48 [facility] 10/31 21:42 Order name: SARS-COV-2 RT PCR; Complete Time: 21:48 [facility] 10/31 17:49 Order name: Urine Dipstick-Ancillary (obtain specimen): Cath; Complete Time: 17:53 [facility] 10/31 17:49 Order name: Accucheck; Complete Time: 18:33 [facility] 10/31 17:49 Order name: Cardiac monitoring; Complete Time: 18:28 [facility] 10/31 17:49 Order name: EKG - Nurse/Tech; Complete Time: 18:28 [facility] 10/31 17:49 Order name: IV Saline Lock - Large Bore; Complete Time: 18:33 [facility] 10/31 17:49 Order name: Labs collected and sent; Complete Time: 18:33 [facility] 10/31 17:49 Order name: O2 Per Protocol; Complete Time: 18:33 [facility] 10/31 17:49 Order name: O2 Sat Monitoring; Complete Time: 18:33 [facility] EC:10 Rate is 76 beats/min. Rhythm is regular. QRS Keeler is Normal. NV interval is normal. QRS carlos interval is normal. QT interval is normal. No Q waves. T waves are Normal. No ST changes noted. Clinical impression: NSR w/ Non-specific ST/T Changes and No evidence of ischemia. Interpreted by me. Reviewed by me. Administered Medications: 18:55 Drug: Rocephin 1 grams Route: IV; Rate: calculated rate; Site: left upper arm; jl7 22:14 Follow up: IV Status: Completed infusion ea 20:35 Drug: Bactroban Ointment 2 % 1 application Route: Topical; Site: affected area; ea 20:35 Drug: Zithromax 500 mg Route: IVPB; Infused Over: 1 hrs; Site: right upper arm; ea 22:14 Follow up: Response: No adverse reaction; IV Status: Completed infusion ea Disposition: 10/31/20 19:57 Hospitalization ordered by Pete Klein for Inpatient Admission. Preliminary diagnosis are Cellulitis and acute lymphangitis of other parts of limb - left index finger, Scratched by cat, Acute tubulo-interstitial nephritis, Fever, unspecified, Weakness. - Bed requested for Telemetry/MedSurg (Inpatient). - Status is Inpatient Admission. ea - Condition is Fair. - Problem is new. - Symptoms have improved. Signatures: Dispatcher [employer] Katiana Bar RN Hernesto Daley MD MD cha Rittger, Kevin, MD MD kdr Leal, Jahala, RN RN jlCordelia Young RN RN ea Peltier, Brian, RN RN bp Corrections: (The following items were deleted from the chart) 21:53 19:57 Hospitalization Ordered by Pete Klein MD for Inpatient Admission. Preliminary dw diagnosis is Cellulitis and acute lymphangitis of other parts of limb - left index finger; Scratched by cat; Acute tubulo-interstitial nephritis; Fever, unspecified; Weakness. Bed requested for Telemetry/MedSurg (Inpatient). Status is Inpatient Admission. Condition is Fair. Problem is new. Symptoms have improved. carlos 22:25 21:53 10/31/2020 19:57 Hospitalization Ordered by Pete Klein MD for Inpatient ea Admission. Preliminary diagnosis is Cellulitis and acute lymphangitis of other parts of limb - left index finger; Scratched by cat; Acute tubulo-interstitial nephritis; Fever, unspecified; Weakness. Bed requested for Telemetry/MedSurg (Inpatient). Status is Inpatient Admission. Condition is Fair. Problem is new. Symptoms have improved. dw
--- NOTE | 2020-10-31 19:58 | ER ---
Nurse's Notes [facility] Name: Pauly Alex Age: 80 yrs Sex: Female : 1940 Arrival Date: 10/31/2020 Time: 17:11 Bed 6 Private MD: Diagnosis: Cellulitis and acute lymphangitis of other parts of limb-left index finger;Scratched by cat;Acute tubulo-interstitial nephritis;Fever, unspecified;Weakness Presentation: 10/31 17:11 Chief complaint: EMS states: LETHARGY AND GEN WEAKNESS. Coronavirus screen: At this bp time, the client does not indicate any symptoms associated with coronavirus-19. Ebola Screen: No symptoms or risks identified at this time. Initial Sepsis Screen: Does the patient meet any 2 criteria? No. Patient's initial sepsis screen is negative. Does the patient have a suspected source of infection? No. Patient's initial sepsis screen is negative. Risk Assessment: Do you want to hurt yourself or someone else? Patient reports no desire to harm self or others. Onset of symptoms is unknown. Care prior to arrival: IV initiated. 20 GA, in the right UPPER ARM Glucose check: 103. 17:11 Method Of Arrival: EMS: [facility] bp 17:11 Acuity: KIA 3 bp Triage Assessment: 17:11 General: Appears distressed, uncomfortable, obese, Behavior is cooperative, appropriate bp for age, anxious. Pain: Denies pain. EENT: No deficits noted. Neuro: Reports weakness. Cardiovascular: No deficits noted. Respiratory: No deficits noted. GI: No signs and/or symptoms were reported involving the gastrointestinal system. : Urine is FOUL SMELLING. Derm: No deficits noted. Musculoskeletal: Reports weakness in GENERALIZED. Historical: - Allergies: 17: No Known Allergies; jl7 - Home Meds: 17: prednisone 10 mg Oral tab [Active]; allopurinol 300 mg oral tab [Active]; citalopram 20 jl7 mg tab 1 tab once daily [Active]; Levothroid 75 mcg Oral tab 1 tab once daily [Active]; spironolactone 25 mg Oral tab [Active]; topiramate 100 mg oral tab [Active]; Xarelto 10 mg oral tab [Active]; bisoprolol fumarate 5 mg oral tab [Active]; Dexilant 60 mg oral CpDB 1 cap once daily [Active]; - PMHx: 17:29 Depression; GERD; Gout; Hypothyroidism; Pneumonia; jl7 - PSHx: 17:29 Thyroid Cyst I/D; knee - left; Mastectomy(September 2020); jl7 - Immunization history:: Adult Immunizations unknown. - Social history:: Smoking status: Patient denies any tobacco usage or history of. Screenin:31 Abuse screen: Denies threats or abuse. Denies injuries from another. Nutritional jl7 screening: No deficits noted. Tuberculosis screening: No symptoms or risk factors identified. Fall Risk IV access (20 points). Assessment: 17:15 General: see triage assessment. jl7 17:31 Reassessment: pt noted to be in soiled brief, pt changed and cleaned. jl7 18:32 Reassessment: Tommie Moses, pt's spouse, . jl7 20:36 General: Appears in no apparent distress. Behavior is appropriate for age. Pain: Denies ea pain. Neuro: Level of Consciousness is awake, alert, obeys commands, Oriented to person, place, time. Respiratory: Airway is patent Respiratory effort is even, unlabored, Respiratory pattern is regular, symmetrical. Derm: Skin is pink, warm \T\ dry. scabbed area note on right index finger. 22:13 Reassessment: Patient and/or family updated on plan of care and expected duration. Pain ea level reassessed. Patient is alert, oriented x 3, equal unlabored respirations, skin warm/dry/pink. Pt admitted to second floor, left ED via wheelchair per tech. Pt tolerating well. Vital Signs: 17:11 BP 122 / 67; Pulse 73; Resp 16; Temp 97.4; Pulse Ox 96% ; bp 17:29 BP 106 / 52; Pulse 76; Resp 26; Temp 98.9; Pulse Ox 100% ; Pain 0/10; jl7 18:30 BP 105 / 51; Pulse 74; Resp 25; Pulse Ox 98% ; bp 20:37 BP 104 / 46; Pulse 74; Resp 18; Pulse Ox 98% ; ea ED Course: 17:11 Patient arrived in ED. bp 17:12 Triage completed. bp 17:13 Enrique Her MD is Attending Physician. kdr 17:23 Espana, Jahala, RN is Primary Nurse. jl7 17:29 Arm band placed on right wrist. jl7 17:31 Patient has correct armband on for positive identification. Placed in gown. Bed in low jl7 position. Call light in reach. Side rails up X2. library monitor on. Pulse ox on. NIBP on. Warm blanket given. 17:31 Urine collected: straight cath specimen, cloudy. Straight cath inserted, using sterile jl7 technique, 16 Fr. Specimen obtained. Returned cloudy urine. Patient tolerated well. 18:08 EKG done, by ED staff, reviewed by Enrique Her MD. dh3 18:20 Inserted saline lock: 22 gauge in right upper arm, using aseptic technique. Blood bp collected. 18:22 Chest Single View XRAY In Process Unspecified. EDMS 19:12 Attending Physician role handed off by Enrique Her MD [facility] 19:12 Hernesto Engel MD is Attending Physician. carlos 19:14 Notified ED physician of a critical lab result(s). WBC 23.9. dm5 19:15 Primary Nurse role handed off by Sonam Espana RN mw2 19:41 Cordelia Lake RN is Primary Nurse. ea 19:55 Pete Klein MD is Hospitalizing Provider. carlos 20:36 No provider procedures requiring assistance completed. Patient admitted, IV remains in ea place. Administered Medications: 18:55 Drug: Rocephin 1 grams Route: IV; Rate: calculated rate; Site: left upper arm; jl7 22:14 Follow up: IV Status: Completed infusion ea 20:35 Drug: Bactroban Ointment 2 % 1 application Route: Topical; Site: affected area; ea 20:35 Drug: Zithromax 500 mg Route: IVPB; Infused Over: 1 hrs; Site: right upper arm; ea 22:14 Follow up: Response: No adverse reaction; IV Status: Completed infusion ea Outcome: 19:57 Decision to Hospitalize by Provider. carlos 20:36 Instructed on the need for admit. ea 22:13 Admitted to Med/surg accompanied by tech, room 202, with chart, Report called to ea Receiving nurse on second floor 22:13 Condition: stable 22:25 Patient left the ED. ea Signatures: Dispatcher [facility] Suzette Jaemson, KATELIN RN dm5 Toro, MD MD carlos Eric Kevin, MD MD kdr Leal, Jahala, RN RN jl7 Nidhi Marcum [facility] Cordelia Lake RN RN Deric Díaz RN RN Nakul Calvert 2
[2020-10-31] MEDS ORDERED: AZITHROMYCIN 500 MG INJ IVPB ONE (20:18)
[2020-10-31] MEDS ORDERED: MUPIROCIN 2% OINT 22GM TUBE TOP ONE (20:18)
[2020-10-31] MEDS ORDERED: NA CHLORIDE 0.9% 250 ML ONE (20:19)
--- NOTE | 2020-10-31 20:22 | RAD REPORT ---
EXAM DESCRIPTION: RAD - Hand Right 3 View - 10/31/2020 8:14 pm CLINICAL HISTORY: Pain;Swelling COMPARISON: No comparisons FINDINGS: Mild soft tissue swelling is seen affecting the second digit. No fracture or dislocation s een. No radiopaque foreign body.
[2020-10-31] MEDS ORDERED: FAMOTIDINE 20 MG/2 ML VIAL IV SCH (22:21)
[2020-10-31] MEDS: NS KCL 20MEQ 20 MEQ/1,000 ML BAG IV SCH (22:21)
[2020-10-31] MEDS: MUPIROCIN 2% OINT 22GM TUBE TOP SCH (22:21)
[2020-10-31] MEDS ORDERED: CEFTRIAXONE 1 GM/NS 50 ML 1 GM/50 ML BAG IV SCH (22:21)
[2020-10-31] MEDS ORDERED: ONDANSETRON 4 MG/2 ML VIAL IV PRN (22:21)
[2020-10-31] MEDS ORDERED: MORPHINE 2 MG/ML SYR IV PRN (22:30)
[2020-10-31] MEDS ORDERED: ACETAMINOPHEN 325 MG TABLET PO PRN (22:31)
[2020-11-01 00:09] VITALS: BMI 31.7
[2020-11-01] MEDS: PANTOPRAZOLE 40MG TABLET PO SCH (05:39)
[2020-11-01] MEDS: NS KCL 20MEQ 20 MEQ/1,000 ML BAG IV SCH ×2 (05:39→17:44)
[2020-11-01 06:00] LABS: Absolute Lymphocytes (CBC) 2.8 K/uL (0.7-4.9); Basophils % 0.8 % (0-1.3); Hematocrit 31.1 % (36.0-45.0); RBC Red Blood Cell Count 3.33 M/uL (3.86-4.86)
[2020-11-01 06:26] LABS: Potassium 3.5 mmol/L (3.5-5.1)
--- NOTE | 2020-11-01 08:16 | P.HP ---
Certification for Inpatient Patient admitted to: Inpatient With expected LOS: >2 Midnights Practitioner: I am a practitioner with admitting privileges, knowledge of patient current condition, hospital course, and medical plan of care. Services: Services provided to patient in accordance with Admission requirements found in Title 42 Section 412.3 of the Code of Federal Regulations Patient History Date of Service: 11/01/20 Reason for admission: CHILLS. History of Present Illness: FAMILY BROUGHT HER TO ER FOR CHILLS. SHE HAD NO FEVER AND NO OTHER SYMPTOMS. Allergies No Known Allergies Allergy (Verified 09/01/20 16:24) Home Medications: Citalopram Hydrobromide [Citalopram HBr] 20 mg PO DAILY 08/02/12 Levothyroxine Sodium [Levothroid] 75 mcg PO DAILY 08/02/12 allopurinoL [Zyloprim] 300 mg PO DAILY 03/07/18 Topiramate [Topamax*] 1 tab PO DAILY 04/11/18 Dexlansoprazole [Dexilant] 60 mg PO DAILY 09/01/20 bisoproloL fumarate [Zebeta] 5 mg PO DAILY 09/01/20 Vits96/Iron Fum/Folic [ Tablet] 1 each PO DAILY 11/01/20 Rivaroxaban [Xarelto] 10 mg PO DAILY 11/01/20 Spironolactone [Aldactone] 25 mg PO DAILY 11/01/20 - Past Medical/Surgical History Has patient received pneumonia vaccine in the past: No Diabetic: No -: depression -: gerd -: gout -: hypothyroidism -: pneumonia -: back Sx -: L Knee replacement -: Duct removal on L Breast -: Gall bladder Sx -: - Family History Father -: Heart disease, Stroke - Social History Smoking Status: Former smoker Alcohol use: No CD- Drugs: No Caffeine use: Yes Place of Residence: Home Review of Systems 10-point ROS is otherwise unremarkable Integumentary: Other (CAT BITE ON THUMB ABOUT 3 WEEKS AGO.) Physical Examination - Vital Signs Temperature: 99.0 F Blood Pressure: 91/45 Pulse: 73 Respirations: 18 - Physical Exam General: Alert, In no apparent distress, Obese HEENT: Atraumatic, PERRLA, Mucous membr. moist/pink, EOMI, Sclerae nonicteric Neck: Supple, 2+ carotid pulse no bruit, No LAD, Without JVD or thyroid abnormality Respiratory: Clear to auscultation bilaterally, Normal air movement Cardiovascular: Regular rate/rhythm, Normal S1 S2 Gastrointestinal: Normal bowel sounds, No tenderness Musculoskeletal: No tenderness Integumentary: No rashes, Other (R THUMB DRY, CAT BITE. NO PUS NO PAIN. ) Neurological: Normal gait, Normal speech, Normal strength at 5/5 x4 extr, Normal tone, Normal affect Lymphatics: No axilla or inguinal lymphadenopathy - Studies Laboratory Data (last 24 hrs) 10/31/20 18:20: PT 15.3 H, INR 1.29, APTT 25.5 10/31/20 18:20: WBC 23.90 H*, Hgb 11.7 L, Hct 36.7, Plt Count 342 10/31/20 18:20: Sodium 138, Potassium 3.4 L, BUN 28 H, Creatinine 1.14, Glucose 95, Total Bilirubin 0.6, AST 14 L, ALT 11 L, Alkaline Phosphatase 117, Amylase 56, Lipase 153 Assessment and Plan - Problems (Diagnosis) (1) UTI (urinary tract infection) Current Visit: Yes Status: Acute Plan: AGREE WITH ROCEPHIN IV. SHE IS STABLE. HAS NO ACUTE DISTRESS. SHE WILL GO HOME IN AM POSSIBLY. - Advance Directives Does patient have a Living Will: No Does patient have a Durable POA for Healthcare: No
[2020-11-01] MEDS: TOPIRAMATE 100 MG TAB PO SCH (08:20)
[2020-11-01] MEDS: RIVAROXABAN 10 MG TABLET PO SCH (08:20)
[2020-11-01] MEDS: CEFTRIAXONE/SWI 1gm 1 GM/10 ML SYR IV SCH ×2 (08:20→20:10)
[2020-11-01] MEDS: CITALOPRAM 10 MG TABLET PO SCH (08:20)
[2020-11-01] MEDS: LEVOTHYROXINE SOD 0.075 MG TAB PO SCH (08:20)
[2020-11-01] MEDS: allopurinoL 100 MG TAB PO SCH (08:21)
[2020-11-01] MEDS: FAMOTIDINE 20 MG/2 ML VIAL IV SCH (08:21)
[2020-11-01] MEDS: MUPIROCIN 2% OINT 22GM TUBE TOP SCH ×2 (08:21→20:10)
[2020-11-01] MEDS ORDERED: ENOXAPARIN 40 MG/0.4 ML SQ SCH (09:00)
[2020-11-01] MEDS: BISOPROLOL 5 MG TABLET PO SCH (09:00)
--- NOTE | 2020-11-01 09:48 | RAD REPORT ---
EXAM DESCRIPTION: RAD - Chest Single View - 11/01/2020 6:56 am CLINICAL HISTORY: Follow up admission chest Xray COMPARISON: Portable October 31 TECHNIQUE: AP portable chest image was obtained 11/01/2020 6:56 am . FINDINGS: Lung volumes are low. No measurable infiltrative changes are seen. No significant failure or volume overload. Left costophrenic angle remains blunted. Heart and vasculature are normal. No pne umothorax or enlarging pleural effusion. No acute bony abnormality seen. No acute aortic findings joe pected. IMPRESSION: Stable chest
[2020-11-01] MEDS: AZITHROMYCIN IV 250 MG in NA CHLORIDE 0.9% 250 ML IVPB SCH (11:25)
--- NOTE | 2020-11-01 12:29 | RAD REPORT ---
EXAM DESCRIPTION: CT - Chest Abdomen Pelvis W Cont - 11/01/2020 10:46 am CLINICAL HISTORY: weakness/lethargy, chest pain, abdominal pain COMPARISON: Chest Single View dated 11/01/2020; Chest For Pe Angio dated 04/11/2018 TECHNIQUE: Following dynamic enhancement using 100 milliliters nonionic IV contrast, axial imaging o f the chest, abdomen and pelvis was performed. Biphasic technique was utilized through the abdomen. Oral contrast was administered. All CT scans are performed using dose optimization technique as appropriate and may include automated exposure control or mA/KV adjustment according to patient size. FINDINGS: Nodularity is present in the thyroid gland including a densely calcified nodule in the inf erior left lobe. Follow-up nonemergent thyroid sonography can be performed as warranted. Lungs are cl ear of mass and infiltrate. No pleural effusion, pleural thickening or pneumothorax. No significant a ortic or pulmonary arterial tree finding. Mediastinal and hilar regions show no mass or abnormal lymp hadenopathy. No axillary lymphadenopathy. Patient has undergone bilateral mastectomy since the 2018 C T chest. Normal postoperative stranding seen on the left. In the lower right chest there is a 12 cent imeter diameter by 2 centimeter thick low-density collection that is probably a chronic postoperative seroma. No air or other finding that would indicate chest wall abscess. Correlation can be made with any exam findings to suggest a cellulitis or inflammatory process of the remnant chest soft tissues. The liver, spleen and pancreas show no suspicious findings. Cholecystectomy clips are present. No kishan iary tree dilatation. Gallstones can be occult on CT imaging. Symmetric renal function is seen with n o mass or hydronephrosis. There is incomplete rotation of the right kidney is normal variant. A nonob structing 6 mm calcification is present. Patient has an 8 centimeter exophytic simple cyst projecting from the lower pole of the right kidney. No dilated bowel loops or focal bowel wall thickening. No acute GI findings seen. Diverticulosis is p resent but minimal. Uterus and ovaries show no suspicious findings for age. Disc and bony degenerative changes are present. Scoliosis hardware is in place. No pathologic or dest ructive bone process identifiable. No significant vascular findings. IMPRESSION: CT chest, abdomen and pelvis imaging shows no occult malignancy, mass or other emergent finding. A 12 centimeter diameter by 2 centimeter thick low-density collection in the right chest wall soft ti ssues is believed to be postoperative seroma. Abscess is unlikely. Correlation can be made with any e xam findings that suggest an infectious or inflammatory process to the right chest wall soft tissues. Additional nonacute findings detailed in the body of the report.
[2020-11-01 20:49] VITALS: O2SAT 96
[2020-11-02] MEDS: NS KCL 20MEQ 20 MEQ/1,000 ML BAG IV SCH ×2 (01:19→06:21)
[2020-11-02] MEDS: PANTOPRAZOLE 40MG TABLET PO SCH (06:41)
[2020-11-02 07:28] LABS: Absolute Lymphocytes (CBC) 2.7 K/uL (0.7-4.9); Basophils % 0.3 % (0-1.3); Hematocrit 31.7 % (36.0-45.0); Lymphocytes % 18.8 % (15.3-44.8); MPV 8.9 fL (7.6-11.3); RBC Red Blood Cell Count 3.35 M/uL (3.86-4.86)
[2020-11-02 07:45] LABS: Potassium 3.7 mmol/L (3.5-5.1)
[2020-11-02] MEDS: AZITHROMYCIN IV 250 MG in NA CHLORIDE 0.9% 250 ML IVPB SCH (08:36)
[2020-11-02] MEDS: FAMOTIDINE 20 MG/2 ML VIAL IV SCH (08:36)
[2020-11-02] MEDS: MUPIROCIN 2% OINT 22GM TUBE TOP SCH (08:37)
[2020-11-02] MEDS: CITALOPRAM 10 MG TABLET PO SCH (08:37)
[2020-11-02] MEDS: CEFTRIAXONE/SWI 1gm 1 GM/10 ML SYR IV SCH (08:37)
[2020-11-02] MEDS: RIVAROXABAN 10 MG TABLET PO SCH (08:37)
[2020-11-02] MEDS: LEVOTHYROXINE SOD 0.075 MG TAB PO SCH (08:37)
[2020-11-02] MEDS: allopurinoL 100 MG TAB PO SCH (08:37)
[2020-11-02] MEDS: TOPIRAMATE 100 MG TAB PO SCH (08:37)
[2020-11-02] MEDS: BISOPROLOL 5 MG TABLET PO SCH (08:39)
--- NOTE | 2020-11-02 12:15 | P.DS ---
Admission Date: 10/31/20 Discharge Date: 11/02/20 Disposition: ROUTINE DISCHARGE Reason for Admission: CHILLS. - Problems (1) UTI (urinary tract infection) Current Visit: Yes Status: Acute Brief History of Present Illness: FAMILY BROUGHT HER TO ER FOR CHILLS. SHE HAD NO FEVER AND NO OTHER SYMPTOMS. Hospital Course: CHEN IS A LOT BETTER. HAS NO PAIN. NO FEVER. SHE IS EATING WELL AND WALKING WELL. SHE IS STABLE TO GO HOME. Vital Signs/Physical Exam: Temp Pulse Resp BP Pulse Ox 98.0 F 70 18 112/55 L 96 11/02/20 08:00 11/02/20 08:00 11/02/20 08:00 11/02/20 08:39 11/02/20 08:00 Laboratory Data at Discharge: WBC 14.40 K/uL (4.3-10.9) H D 11/02/20 07:16 Hgb 9.9 g/dL (12.0-15.0) L 11/02/20 07:16 Hct 31.7 % (36.0-45.0) L 11/02/20 07:16 Plt Count 256 K/uL (152-406) 11/02/20 07:16 PT 15.3 SECONDS (9.5-12.5) H 10/31/20 18:20 INR 1.29 10/31/20 18:20 APTT 25.5 SECONDS (24.3-36.9) 10/31/20 18:20 Sodium 143 mmol/L (136-145) 11/02/20 07:16 Potassium 3.7 mmol/L (3.5-5.1) 11/02/20 07:16 BUN 19 mg/dL (7-18) H 11/02/20 07:16 Creatinine 0.81 mg/dL (0.55-1.3) 11/02/20 07:16 Glucose 90 mg/dL (74-106) 11/02/20 07:16 Total Bilirubin 0.6 mg/dL (0.2-1.0) 10/31/20 18:20 AST 14 U/L (15-37) L 10/31/20 18:20 ALT 11 U/L (12-78) L 10/31/20 18:20 Alkaline Phosphatase 117 U/L (45-117) 10/31/20 18:20 Amylase 56 U/L (25-115) 10/31/20 18:20 Lipase 153 U/L (73-393) 10/31/20 18:20 Home Medications: Citalopram Hydrobromide [Citalopram HBr] 20 mg PO DAILY 08/02/12 Levothyroxine Sodium [Levothroid] 75 mcg PO DAILY 08/02/12 allopurinoL [Zyloprim*] 300 mg PO DAILY 03/07/18 Topiramate [Topamax*] 1 tab PO DAILY 04/11/18 Dexlansoprazole [Dexilant] 60 mg PO DAILY 09/01/20 bisoproloL fumarate [Zebeta*] 5 mg PO DAILY 09/01/20 Vits96/Iron Fum/Folic [ Tablet] 1 each PO DAILY 11/01/20 Rivaroxaban [Xarelto*] 10 mg PO DAILY 11/01/20 Spironolactone [Aldactone*] 25 mg PO DAILY 11/01/20 Smz./Tmp. [Bactrim Ds 800 MG/160 MG] 1 tab PO BID #20 tab 11/02/20 New Medications: Smz./Tmp. [Bactrim Ds 800 MG/160 MG] 1 tab PO BID #20 tab Followup: NONE,NONE [Primary Care Provider] -
[2020-11-02 13:23] LABS: C.diff Antigen/Toxin Ag neg : Tox neg (NEG : NEG)
[2020-11-02 15:13] VITALS: BP 122/58; TEMP 98.1
== END 2020-11-02 14:55 | disposition home or self-care (01) | DRG 690 ==
LOC: ER 17:10 → OBSVTOIN 19:59 → ERHOLD 19:59 → INTOOBSV 19:59 → 2ND 22:13
PROVIDERS: ADMIT Internal Medicine; ATTEND Internal Medicine
DX: N39.0 Urinary tract infection, site not specified (principal); M10.9 Gout, unspecified; K21.9 Gastro-esophageal reflux disease without esophagitis; E03.9 Hypothyroidism, unspecified; Z79.52 Long term (current) use of systemic steroids; Z79.890 Hormone replacement therapy; Z79.01 Long term (current) use of anticoagulants; Z79.899 Other long term (current) drug therapy; Z90.12 Acquired absence of left breast and nipple; Z96.652 Presence of left artificial knee joint; Z87.891 Personal history of nicotine dependence; Z20.822 Contact with and (suspected) exposure to COVID-19
CPT/HCPCS: 36415; 51702; 71045; 71260; 74177; 80048; 80076; 81003; 81015; 82150; 82550; 82553; 83605; 83690; 84145; 84484; 85025; 85610; 85730; 87040; 87077; 87086; 87088; 87186; 87324; 87449; 93005; 99285; J0456; J0696; J3480; J7050; Q9967; U0003

== ENCOUNTER 2021-05-30 12:01 | Emergency (ER) | payer OTHER ==
--- OUTSIDE RECORDS SUMMARY | 2021-05-30 12:04 | XMS REPORT | Continuity of Care Document ---
:1940 Author Organization [facility] t Address [address] [place] [address] Care Team Providers Name Role Phone Ernie V Primary Care Physician Only, Db Test Attending Clinician Unavailable Unknown Attending Clinician Unavailable Michael RODRÍGUEZ, Gene Attending Clinician Payers Payer Name Policy Type Policy Effective Date Expiration Source Number Date MEDICAREMEDICARE PART [id number] 2003 Un iversity of A & 00:00:00 [facility] [id number] 2002- [facility] [phone]. [id number] [place] [id number] CONTINENTAL [id number] 2018 [facility]00 [place] Med ical [id number] [facility] 18-PresentIndemnity Problems Condition Condition Condition Status Onset Resolution Last Treating Co mments Source Name Details Category Date Date Treatment Clinician Date Pseudophak Pseudophak Disease Active Overview : Claritza dye ia 5-[address] 00:00: g of this [facility]osp[facility] 00 note l might be different from the original. OS 09/07/11 [id number] +19.5OD 12/14/11 Last Assessmen t & Plan: Formattin g of this note might be different from the original. 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 RUL RLL puncta atretic. LLL plug intact, VERONIQUE plug removed due to epiphora. H/O Restasis use.Last Assessmen t & Plan: Formattin g of this note might be different from the original. RUL RLL puncta atretic. LLL plug intact, VERONIQUE plug removed due to epiphora. 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 Affecting BCVA slightly. 20/40 with MRx, given.If NI or cannot pass DL test, then call for YAG OU.DL form filled. UTI UTI Disease Active [facility] ([facility] (ur[facility] tract tract 00:00: Medical infection) infection) 00 Ce nter Asthmatic Asthmatic Disease Active [facility] bronchitis bronchitis 6-30 Deb kes - without without 00:00: Medical complicati complicati 00 Ce nter on on Acute deep Acute deep Disease Active [facility] vein vein 6-29 [facility] - thrombosis thrombosis 00:00: Me dical of right of right 00 Center tibial tibial vein vein Acute deep Acute deep Disease Active [facility] vein vein 6-29 [facility] - thrombosis thrombosis 00:00: Me dical of right of right 00 Center popliteal popliteal vein vein Acute deep Acute deep Disease Active [facility] vein vein 6-27 [facility] - thrombosis thrombosis 00:00: Me dical (DVT) of (DVT) of 00 Center other other specified specified vein of vein of right right lower lower extremity extremity Closed Closed Disease Active [facility] left ankle left ankle 6-27 Deb kes - fracture fracture 00:00: Medica l 00 Center Pulmonary Pulmonary Disease Active [facility] embolism embolism 6- [facility] - 00:00: Medical 00 Center Allergies, Adverse Reactions, Alerts This patient has no known allergies or adverse reactions. Social History Social Habit Start Date Stop Date Quantity Comments Source Exposure to Not sure [facility] of SARS-CoV-2 [facility] (event) [place] Sex Assigned At [facility] Tobacco use and 2020-03-14 2020-03-14 Never used Universit y [facility] exposure 00:00:00 00:00:00 [facility] Alcohol intake 2016-03-28 2016-03-[address] [facility] Radha Mcpherson - 00:00:00 00:00:00 of [facility] (finding) Alcohol Comment 2016-03-28 2016-03-28 says one per [facility] - 00:00:00 00:00:00 [facility] Smoking Status Start Date Stop Date Source Former smoker 2020-03-14 00:00:00 2020-03-14 00:00:00 [facility] Never smoker [facility] Medications Ordered Filled Start Stop Current Ordering Indication Dosage Frequency Signature Comments Components Source Medication Medication Date Date Medication? Clinician (SIG) Name Name allopurinol Yes 300mg Take 300 U nivers 300 mg 6-07 mg by ity of tablet 19:51: mouth. [address] levothyroxi Yes 75ug Take 75 Uni vers ne 75 mcg 6-07 mcg by ity of tablet 19:51: mouth. [address] Dexlansopra Yes Take by Un sheeba zole 6-07 mouth. ity of (DEXILANT) 19:51: [place] [address] [place] [address] capsule Branch predniSONE Yes 10mg Take 10 mg U nivers 10 mg 6-07 by mouth ity of tablet 19:51: daily. [address] XARELTO 10 2018- Yes Univers mg tablet 4-25 ity of 00:00: [address] citalopram 2018- Yes Univers 20 mg 2-18 ity of tablet 00:00: [address] topiramate 2018-0 Yes Univers 100 mg 2-18 ity of tablet 00:00: [address] spironolact 2018- Yes Univer s one-hydroch 2-18 ity of lorothiazid 00:00: [place] e 25-25 mg 00 Medical per tablet Branch topiramate Yes 100mg Q.5D Take 100 Me thodi (TOPAMAX) 5-[address] 100 MG 19:19: mouth 2 Hospita tablet 56 (two) l times a day. allopurinol Yes 300mg QD Take 300 M ethodi (ZYLOPRIM) 5-[address] 300 MG 19:19: mouth Hospita tablet 56 daily. l citalopram Yes 20mg QD Take 20 mg M ethodi (CeleXA) 20 5-[address] MG tablet 19:19: daily. Hospit a 56 l levothyroxi Yes 75ug QD Take 75 Met hodi ne 5-[address] (SYNTHROID, 19:19: mouth Hospi ta LEVOXYL) 75 56 every l mcg tablet morning. omeprazole Yes 20mg QD Take 20 mg M ethodi (PriLOSEC) 5-[address] 20 MG 19:19: daily. Hospita capsule 56 l omeprazole Yes 20mg QD Take [address] (PRILOSEC) 6-30 by mouth [facility] - 20 MG 16:12: daily. Medical [facility] 33 Center allopurinol Yes gout 300mg QD Take [address] (ZYLOPRIM) 6-30 mg by [facility] - 100 MG 16:12: mouth Medical tablet 33 daily . Center citalopram Yes 20mg QD Take [address] (CELEXA) 20 6-30 by mouth Luke s - MG tablet 16:12: daily. Medica l 33 Center levothyroxi 0 Yes 75ug Take [address] ne 6-30 mcg by [facility] - (SYNTHROID, 16:12: mouth Medic al LEVOTHROID) 33 Every Center 75 MCG morning on tablet an empty stomach. aspirin 81 0 Yes 81mg QD Take [address] MG EC 6-30 by mouth [facility] - tablet 16:12: daily. [address] cholecalcif 0 Yes [id number] Q7D Take [facility] lakshmi, 6-30 50,000 [facility] - vitamin D3, 16:12: Units by Mn dical 50,000 unit 33 mouth once Ce nter Tab a week. topiramate 0 Yes 100mg Q.5D Take [address] (TOPAMAX) 6-30 mg by [facility] - 100 MG 16:12: mouth 2 Medical tablet 33 (two) Center times daily. apixaban 2016-0 Yes 10 mg po [facility] (ELIQUIS) 5 6-30 bid x 7 [facility] - mg Tab 00:00: Then 5 mg Medica l tablet 00 po bid. Center Procedures This patient has no known procedures. Plan of Care Planned Activity Planned Date Details Comments Source Future Scheduled Test COVID-19 VACCINE (1) [facility] [code = COVID-19 VACCINE (1)] Future Scheduled Test SHINGLES VACCINES (#1) [facility] [code = SHINGLES VACCINES (#1)] Future Scheduled Test 65+ PNEUMOCOCCAL [facility] VACCINE (1 of 1 - PPSV23) [code = 65+ PNEUMOCOCCAL VACCINE (1 of 1 - PPSV23)] Future Scheduled Test INFLUENZA VACCINE [code [facility] = INFLUENZA VACCINE] Encounters Start End Encounter Admission Attending Care Care Encounter Source Date/Time Date/Time Type Type Clinicians Facility Department ID 2021-05-28 2021-05-28 Laboratory Only, Ang Db Test [facility] 1.2.8 [id number] Univers 17:43:51 17:53:51 Only Unknown, Attending Health [id number] Gladys [id number] Ric as Segundo?Blea [phone] [address] Medical Office Building 2020-03-14 2020-03-[address] [facility] [id number] 14:57:41 15:26:08 Visit Alex Nicholson [id number] [place] [id number] Professio [phone] [facility] 092 Building Results This patient has no known results.
[2021-05-30] MEDS ORDERED: ASPIRIN 81 MG CHEWABLE TABLET ONE (13:28)
[2021-05-30] MEDS ORDERED: CASIRIVIMAB/IMDEVIMAB 10 ML VIAL ONE (13:29)
[2021-05-30] MEDS ORDERED: AZITHROMYCIN 250 MG TAB ONE (13:29)
[2021-05-30] MEDS ORDERED: FAMOTIDINE 20 MG/2 ML VIAL IV ONE (13:29)
[2021-05-30] MEDS ORDERED: NA CHLORIDE 0.9% 2,000 ML ONE (13:29)
[2021-05-30] MEDS ORDERED: NA CHLORIDE 0.9% 250 ML ONE (13:35)
[2021-05-30 13:48] LABS: Absolute Lymphocytes (CBC) 1.1 K/uL (0.7-4.9); Hematocrit 35.1 % (36.0-45.0); Lymphocytes % 17.9 % (15.3-44.8); MPV 8.8 fL (7.6-11.3); RBC Red Blood Cell Count 3.66 M/uL (3.86-4.86)
[2021-05-30 13:50] LABS: Protime INR 1.1
--- NOTE | 2021-05-30 13:58 | RAD REPORT ---
EXAM DESCRIPTION: RAD - Chest Single View - 05/30/2021 1:12 pm CLINICAL HISTORY: COUGH Chest pain. COMPARISON: Chest Single View dated 11/01/2020; Chest Single View dated 10/31/2020; Chest Pa And Lat ( 2 Views) dated 09/01/2020; Chest Pa And Lat (2 Views) dated 04/17/2018 FINDINGS: Portable technique limits examination quality. Interstitial lung markings are mildly prominent, greater on the left. This probably represents underl hai bronchitis or viral infection. The heart is mildly enlarged in size. No displaced fractures.Thor acolumbar hardware noted.
[2021-05-30 14:06] LABS: ALT/SGPT 22 U/L (12-78); AST/SGOT 32 U/L (15-37); Albumin 3.5 g/dL (3.4-5.0); Alkaline Phosphatase 98 U/L (45-117); BUN Blood Urea Nitrogen 33 mg/dL (7-18); Bicarbonate 25 mmol/L (21-32); Bilirubin Direct 0.1 mg/dL (0-0.2); Bilirubin Total 0.3 mg/dL (0.2-1.0); Ferritin 293.4 ng/mL (8-388); Glucose Level 98 mg/dL (74-106); NT PRO-BNP 679 pg/mL (<450); Potassium 3.3 mmol/L (3.5-5.1); Protein, Total 7.8 g/dL (6.4-8.2); Sodium Level 136 mmol/L (136-145); Troponin (Emerg Dept Use Only) < 0.02 ng/mL (0.0-0.045)
--- NOTE | 2021-05-30 14:51 | EDPHYS ---
Physician Documentation [facility] Name: Pauly Alex Age: 81 yrs Sex: Female : 1940 Arrival Date: 05/30/2021 Time: 12:07 Bed 30 Private MD: ED Physician Hernesto Engel HPI: 05/30 12:47 This 81 yrs old Female presents to ER via Wheelchair with complaints of Fall carlos Injury, COVID+. 12:47 Details of fall: The patient fell from a height, off furniture, approximately 3 feet. carlos Onset: The symptoms/episode began/occurred just prior to arrival, this morning. Associated injuries: The patient sustained no obvious injury. Severity of symptoms: At their worst the symptoms were mild, in the emergency department the symptoms are unchanged. The patient has not experienced similar symptoms in the past. Historical: - Allergies: 12:21 No Known Allergies; iw - Home Meds: 12:21 allopurinol 300 mg Oral tab [Active]; aspirin 81 mg Oral TbEC 1 tab once daily iw [Active]; bisoprolol fumarate 5 mg Oral tab [Active]; citalopram 20 mg tab 1 tab once daily [Active]; Dexilant 60 mg Oral CpDB 1 cap once daily [Active]; Levothroid 75 mcg Oral tab 1 tab once daily [Active]; meloxicam 7.5 mg Oral tab 1 tab once daily [Active]; omeprazole 20 mg Oral cpDR 1 cap once daily [Active]; prednisone 10 mg Oral tab [Active]; spironolactone 25 mg Oral tab [Active]; topiramate 100 mg Oral tab [Active]; Vitamin D Oral [Active]; Xarelto 10 mg Oral tab [Active]; - PMHx: 12:21 Depression; GERD; Gout; Hypothyroidism; Pneumonia; Angina pectoris; iw - Immunization history:: Client reports having NOT received the Covid vaccine. - Social history:: Smoking status: Patient/guardian denies using tobacco, but has a distant history of tobacco abuse. ROS: 12:49 Constitutional: Negative for fever, chills, and weight loss, Eyes: Negative for injury, carlos pain, redness, and discharge, ENT: Negative for injury, pain, and discharge, Neck: Negative for injury, pain, and swelling, Cardiovascular: Negative for chest pain, palpitations, and edema, Back: Negative for injury and pain, : Negative for injury, bleeding, discharge, and swelling, MS/Extremity: Negative for injury and deformity, Skin: Negative for injury, rash, and discoloration, Neuro: Negative for headache, weakness, numbness, tingling, and seizure, Psych: Negative for depression, anxiety, suicide ideation, homicidal ideation, and hallucinations, Allergy/Immunology: Negative for hives, rash, and allergies, Endocrine: Negative for neck swelling, polydipsia, polyuria, polyphagia, and marked weight changes, Hematologic/Lymphatic: Negative for swollen nodes, abnormal bleeding, and unusual bruising. 12:49 Respiratory: Positive for cough, "sounds productive". 12:49 Abdomen/GI: Positive for diarrhea. Exam: 12:49 Constitutional: This is a well developed, well nourished patient who is awake, alert, carlos and in no acute distress. Head/Face: Normocephalic, atraumatic. Eyes: Pupils equal round and reactive to light, extra-ocular motions intact. Lids and lashes normal. Conjunctiva and sclera are non-icteric and not injected. Cornea within normal limits. Periorbital areas with no swelling, redness, or edema. ENT: Nares patent. No nasal discharge, no septal abnormalities noted. Tympanic membranes are normal and external auditory canals are clear. Oropharynx with no redness, swelling, or masses, exudates, or evidence of obstruction, uvula midline. Mucous membranes moist. Neck: Trachea midline, no thyromegaly or masses palpated, and no cervical lymphadenopathy. Supple, full range of motion without nuchal rigidity, or vertebral point tenderness. No Meningismus. Chest/axilla: Normal chest wall appearance and motion. Nontender with no deformity. No lesions are appreciated. Cardiovascular: Regular rate and rhythm with a normal S1 and S2. No gallops, murmurs, or rubs. Normal PMI, no JVD. No pulse deficits. Abdomen/GI: Soft, non-tender, with normal bowel sounds. No distension or tympany. No guarding or rebound. No evidence of tenderness throughout. Back: No spinal tenderness. No costovertebral tenderness. Full range of motion. Skin: Warm, dry with normal turgor. Normal color with no rashes, no lesions, and no evidence of cellulitis. MS/ Extremity: Pulses equal, no cyanosis. Neurovascular intact. Full, normal range of motion. Neuro: Awake and alert, GCS 15, oriented to person, place, time, and situation. Cranial nerves II-XII grossly intact. Motor strength 5/5 in all extremities. Sensory grossly intact. Cerebellar exam normal. Normal gait. Psych: Awake, alert, with orientation to person, place and time. Behavior, mood, and affect are within normal limits. 12:49 Respiratory: the patient does not display signs of respiratory distress, Respirations: no acute changes, labored breathing, is not present, Breath sounds: bronchial sounds, that are mild, Respiratory rate: 18 14:50 ECG was reviewed by the Attending Physician. [facility] Vital Signs: 12:20 BP 111 / 53; Pulse 77; Resp 20 S; Temp 99.1(TE); Pulse Ox 97% on R/A; Weight 77.11 kg; iw 12:25 BP 90 / 44; Pulse 71; Resp 18; Pulse Ox 96% on R/A; ld1 12:35 BP 92 / 63; Pulse 70; Resp 18; Pulse Ox 98% on R/A; Pain 0/10; ld1 13:00 BP 108 / 49; Pulse 83; Resp 18; Pulse Ox 100% on R/A; ld1 13:33 BP 130 / 57; Pulse 71; Resp 18; Pulse Ox 98% on R/A; ld1 14:00 BP 133 / 57; Pulse 69; Resp 18; Pulse Ox 97% on R/A; ld1 15:00 BP 138 / 62; Pulse 73; Resp 18; Pulse Ox 97% on R/A; ld1 16:40 BP 142 / 70; Pulse 77; Resp 24; Pulse Ox 95% on R/A; Pain 0/10; ch5 MDM: 12:26 Patient medically screened. carlos 12:50 Differential diagnosis: Nonspecific abd pain, viral gastroenteritis, gastroenteritis. [facility] Differential Diagnosis flu, Bronchitis Influenza Upper Respiratory Infection Viral Syndrome Pneumonia. Differential diagnosis: closed head injury, contusion, sprain, strain. Data reviewed: vital signs, nurses notes, lab test result(s), EKG, radiologic studies, plain films. Data interpreted: monitor worker: rate is 70 beats/min, rhythm is regular, Pulse oximetry: on room air is 98 %. Test interpretation: by ED physician or midlevel provider: ECG, plain radiologic studies. Counseling: I had a detailed discussion with the patient and/or guardian regarding: the historical points, exam findings, and any diagnostic results supporting the discharge/admit diagnosis, lab results, radiology results. 05/30 12:47 Order name: Basic Metabolic Panel [facility] 05/30 12:47 Order name: CBC with Diff; Complete Time: 14:07 [facility] 05/30 12:47 Order name: LFT's; Complete Time: 14:07 [facility] 05/30 12:47 Order name: Magnesium; Complete Time: 14:07 [facility] 05/30 12:47 Order name: NT PRO-BNP; Complete Time: 14:07 [facility] 05/30 12:47 Order name: PT-INR; Complete Time: 14: [facility] 05/30 12:47 Order name: Troponin (emerg Dept Use Only); Complete Time: 14: [facility] 05/30 12:47 Order name: XRAY Chest (1 view); Complete Time: 14: [facility] 05/30 12:47 Order name: D-Dimer; Complete Time: 14: [facility] 05/30 12:47 Order name: CRP; Complete Time: 14: [facility] 05/30 12:47 Order name: Ferritin; Complete Time: 14:07 [facility] 05/30 12:47 Order name: Basic Metabolic Panel; Complete Time: 14:07 EDMS 05/30 14:09 Order name: US Extremity Venous W Compression [facility] 05/30 12:47 Order name: EKG; Complete Time: 12:48 [facility] 05/30 12:47 Order name: Cardiac monitoring; Complete Time: 13:02 [facility] 05/30 12:47 Order name: EKG - Nurse/Tech; Complete Time: 13:43 [facility] 05/30 12:47 Order name: IV Saline Lock; Complete Time: 13:41 [facility] 05/30 12:47 Order name: Labs collected and sent; Complete Time: 13:41 [facility] 05/30 12:47 Order name: O2 Per Protocol; Complete Time: 13:03 [facility] 05/30 12:47 Order name: O2 Sat Monitoring; Complete Time: 13:03 [facility] 05/30 14:39 Order name: CT Traumagram (Head C Spine CAP wo con); Complete Time: 16:01 [facility] 05/30 14:34 Order name: PO challenge: juice; Complete Time: 14:42 [facility] EC:50 Rate is 70 beats/min. Rhythm is regular. QRS Mccarr is Normal. OK interval is normal. QRS carlos interval is normal. QT interval is normal. No Q waves. T waves are Normal. No ST changes noted. Clinical impression: NSR w/ Non-specific ST/T Changes and No evidence of ischemia. Interpreted by me. Reviewed by me. Administered Medications: 13: Drug: Aspirin Chewable Tablet 324 mg Route: PO; ld1 13:58 Follow up: Response: No adverse reaction ld1 13:26 Drug: Zithromax (azithromycin) 500 mg Route: PO; ld1 13:57 Follow up: Response: No adverse reaction ld1 13:57 Drug: NS 0.9% 1000 ml Route: IV; Rate: 125 ml/hr; Site: right antecubital; ld1 18:33 Follow up: Response: No adverse reaction; IV Status: Completed infusion; IV Intake: ld1 1000ml 13:57 Drug: Pepcid (famotidine) 20 mg Route: IVP; Site: right antecubital; ld1 13:57 Follow up: Response: No adverse reaction ld1 13:57 Drug: REGEN-COV Dose Pack 120 mg/mL-120 mg/mL (EUA) 1 vials Route: IV; Rate: per ld1 protocol; Site: right antecubital; 18:33 Follow up: Response: No adverse reaction; IV Status: Completed infusion; IV Intake: ld1 250ml 13:58 Drug: NS 0.9% 500 ml Route: IV; Rate: bolus; Site: right antecubital; ld1 18:34 Follow up: Response: No adverse reaction; IV Status: Completed infusion; IV Intake: ld1 500ml 13:58 Drug: NS 0.9% 500 ml Route: IV; Rate: bolus; Site: right antecubital; ld1 18:33 Follow up: Response: No adverse reaction; IV Status: Completed infusion; IV Intake: ld1 500ml Disposition Summary: 05/30/21 14:51 Discharge Ordered Location: Home carlos Problem: new carlos Symptoms: have improved carlos Condition: Stable carlos Diagnosis - Coronavirus infection, unspecified carlos - Pneumonia due to SARS-associated coronavirus carlos - Weakness carlos - Unspecified kidney failure - chronic carlos Followup: carlos - With: Private Physician - When: 2 - 3 days - Reason: Recheck today's complaints, Continuance of care, Re-evaluation by your physician Followup: carlos - With: - When: 2 - 3 days - Reason: Recheck today's complaints, Re-evaluation by your physician Followup: carlos - With: - When: 2 - 3 days - Reason: Recheck today's complaints, Continuance of care, Re-evaluation by your physician Discharge Instructions: - Discharge Summary Sheet carlos - Weakness carlos - Fatigue carlos - Weakness, [id number] carlos - Viral Respiratory Infection, Nqsa-To-Gqnd carlos - Chronic Kidney Disease, Adult, Rcjh-mh-Held carlos - COVID-19 [facility] - COVID-19 Frequently Asked Questions [facility] - 10 Things You Can Do to Manage Your COVID-19 Symptoms at Home - [facility] Forms: - Medication Reconciliation Form [facility] - Thank You Letter [facility] - Antibiotic Education [facility] - Prescription Opioid Use [facility] Prescriptions: - albuterol sulfate 90 mcg/actuation Inhalation HFA aerosol inhaler - inhale 2 puff by INHALATION route every 6 hours; 1 Pump; Refills: 0, Product [facility] Selection Permitted - ivermectin 3 mg Oral tablet - take 4 tablet by ORAL route once daily; 20 tablet; Refills: 0, Product [facility] Selection Permitted - Pepcid 20 mg Oral Tablet - take 1 tablet by ORAL route every 12 hours for 15 days; 30 tablet; Refills: 0, [facility] Product Selection Permitted - Singulair 10 mg Oral Tablet - take 1 tablet by ORAL route At bedtime; 20 tablet; Refills: 0, Product carlos Selection Permitted - Zofran 4 mg Oral Tablet - take 1 tablet by ORAL route every 12 hours As needed; 20 tablet; Refills: 0, [facility] Product Selection Permitted - Zithromax Z-Armond 250 mg Oral Tablet - take 1 tablet by ORAL route as directed for 5 days Day 1 - take two (2) tablets [facility] one time. Day 2, 3, 4 , 5 take one (1) tablet once daily.; 6 tablet; Refills: 0, Product Selection Permitted Signatures: Dispatcher [employer] Hernesto Mccollum MD MD cha Williams, Irene RN RN iw Zuleika Dykes RN RN ld1 Corrections: (The following items were deleted from the chart) 14:37 14:10 Chest For PE Angio+[id number] ordered. EDMI ED
--- NOTE | 2021-05-30 14:51 | ER ---
Nurse's Notes [facility] Name: Pauly Alex Age: 81 yrs Sex: Female : 1940 Arrival Date: 05/30/2021 Time: 12:07 Bed 30 Private MD: Diagnosis: Coronavirus infection, unspecified;Pneumonia due to SARS-associated coronavirus;Weakness;Unspecified kidney failure-chronic Presentation: 05/30 12:19 Chief complaint: Patient states: got a message that she was COVID + , is feeling very iw weak, pt fell out of bed this morning and had trouble getting herself up, is also having some SOB , +diarrhea. 12:19 Acuity: KIA 3 iw 12:20 Coronavirus screen: Ebola Screen: Patient negative for fever greater than or equal to iw 101.5 degrees Fahrenheit, and additional compatible Ebola Virus Disease symptoms Patient denies exposure to infectious person. Patient denies travel to an Ebola-affected area in the 21 days before illness onset. No symptoms or risks identified at this time. Initial Sepsis Screen: Does the patient meet any 2 criteria? No. Patient's initial sepsis screen is negative. Does the patient have a suspected source of infection? No. Patient's initial sepsis screen is negative. Risk Assessment: Do you want to hurt yourself or someone else? Patient reports no desire to harm self or others. Onset of symptoms was May 27, 2021. 12:20 Method Of Arrival: Wheelchair iw Historical: - Allergies: 12:21 No Known Allergies; iw - Home Meds: 12:21 allopurinol 300 mg Oral tab [Active]; aspirin 81 mg Oral TbEC 1 tab once daily iw [Active]; bisoprolol fumarate 5 mg Oral tab [Active]; citalopram 20 mg tab 1 tab once daily [Active]; Dexilant 60 mg Oral CpDB 1 cap once daily [Active]; Levothroid 75 mcg Oral tab 1 tab once daily [Active]; meloxicam 7.5 mg Oral tab 1 tab once daily [Active]; omeprazole 20 mg Oral cpDR 1 cap once daily [Active]; prednisone 10 mg Oral tab [Active]; spironolactone 25 mg Oral tab [Active]; topiramate 100 mg Oral tab [Active]; Vitamin D Oral [Active]; Xarelto 10 mg Oral tab [Active]; - PMHx: 12:21 Depression; GERD; Gout; Hypothyroidism; Pneumonia; Angina pectoris; iw - Immunization history:: Client reports having NOT received the Covid vaccine. - Social history:: Smoking status: Patient/guardian denies using tobacco, but has a distant history of tobacco abuse. Screenin:35 Abuse screen: Denies threats or abuse. Denies injuries from another. Nutritional ld1 screening: No deficits noted. Tuberculosis screening: No symptoms or risk factors identified. Fall Risk None identified. Assessment: 12:35 General: Appears in no apparent distress. comfortable, Behavior is calm, cooperative, ld1 appropriate for age. Pain: Denies pain. Neuro: Level of Consciousness is awake, alert, obeys commands, Oriented to person, place, time, situation, Appropriate for age. Cardiovascular: Capillary refill < 3 seconds Patient's skin is warm and dry. Respiratory: Airway is patent Respiratory effort is even, unlabored, Respiratory pattern is regular, symmetrical. Respiratory: Reports cough that is. GI: Abdomen is round non-distended. : No signs and/or symptoms were reported regarding the genitourinary system. EENT: No signs and/or symptoms were reported regarding the EENT system. Derm: No signs and/or symptoms reported regarding the dermatologic system. Musculoskeletal: No signs and/or symptoms reported regarding the musculoskeletal system. 14:26 Reassessment: Patient appears in no apparent distress at this time. No changes from ld1 previously documented assessment. Patient and/or family updated on plan of care and expected duration. Pain level reassessed. Patient is alert, oriented x 3, equal unlabored respirations, skin warm/dry/pink. 15:30 Reassessment: Patient appears in no apparent distress at this time. No changes from ld1 previously documented assessment. Patient and/or family updated on plan of care and expected duration. Pain level reassessed. Patient denies pain at this time. Vital Signs: 12:20 BP 111 / 53; Pulse 77; Resp 20 S; Temp 99.1(TE); Pulse Ox 97% on R/A; Weight 77.11 kg; iw 12:25 BP 90 / 44; Pulse 71; Resp 18; Pulse Ox 96% on R/A; ld1 12:35 BP 92 / 63; Pulse 70; Resp 18; Pulse Ox 98% on R/A; Pain 0/10; ld1 13:00 BP 108 / 49; Pulse 83; Resp 18; Pulse Ox 100% on R/A; ld1 13:33 BP 130 / 57; Pulse 71; Resp 18; Pulse Ox 98% on R/A; ld1 14:00 BP 133 / 57; Pulse 69; Resp 18; Pulse Ox 97% on R/A; ld1 15:00 BP 138 / 62; Pulse 73; Resp 18; Pulse Ox 97% on R/A; ld1 16:40 BP 142 / 70; Pulse 77; Resp 24; Pulse Ox 95% on R/A; Pain 0/10; ch5 ED Course: 12:07 Patient arrived in ED. mr 12:20 Triage completed. iw 12:23 Arm band placed on. iw 12:26 Hernesto Engel MD is Attending Physician. carlos 12:35 Zuleika Dykes, KATELIN is Primary Nurse. ld1 12:35 Patient has correct armband on for positive identification. Placed in gown. Bed in low ld1 position. Call light in reach. Side rails up X2. panel monitor on. Pulse ox on. NIBP on. Door closed. Noise minimized. Warm blanket given. 12:35 No provider procedures requiring assistance completed. ld1 13:12 XRAY Chest (1 view) In Process Unspecified. EDID 13:41 Troponin (emerg Dept Use Only) Sent. 5 13:41 PT-INR Sent. 5 13:41 NT PRO-BNP Sent. 5 13:41 Magnesium Sent. 5 13:41 D-Dimer Sent. 5 13:41 CRP Sent. 5 13:41 Basic Metabolic Panel Sent. 5 13:41 CBC with Diff Sent. 5 13:41 LFT's Sent. 5 13:41 Ferritin Sent. 5 13:42 Basic Metabolic Panel Sent. 5 13:42 Initial lab(s) drawn, by nc, sent to lab. EKG done, by ED staff, reviewed by Hernesto Engel MD. Inserted saline lock: 20 gauge in right antecubital area, using aseptic technique. Blood collected. 14:51 Rubio Menjivar MD is Referral Physician. carlos 14:51 Ting Schilling MD is Referral Physician. carlos 15:24 CT Traumagram (Head C Spine CAP wo con) In Process Unspecified. EDMS 16:33 US Extremity Venous W Compression Greyson In Process Unspecified. EDMS 16:48 IV discontinued. ch5 Administered Medications: 13:26 Drug: Aspirin Chewable Tablet 324 mg Route: PO; ld1 13:58 Follow up: Response: No adverse reaction ld1 13:26 Drug: Zithromax (azithromycin) 500 mg Route: PO; ld1 13:57 Follow up: Response: No adverse reaction ld1 13:57 Drug: NS 0.9% 1000 ml Route: IV; Rate: 125 ml/hr; Site: right antecubital; ld1 18:33 Follow up: Response: No adverse reaction; IV Status: Completed infusion; IV Intake: ld1 1000ml 13:57 Drug: Pepcid (famotidine) 20 mg Route: IVP; Site: right antecubital; ld1 13:57 Follow up: Response: No adverse reaction ld1 13:57 Drug: REGEN-COV Dose Pack 120 mg/mL-120 mg/mL (EUA) 1 vials Route: IV; Rate: per ld1 protocol; Site: right antecubital; 18:33 Follow up: Response: No adverse reaction; IV Status: Completed infusion; IV Intake: ld1 250ml 13:58 Drug: NS 0.9% 500 ml Route: IV; Rate: bolus; Site: right antecubital; ld1 18:34 Follow up: Response: No adverse reaction; IV Status: Completed infusion; IV Intake: ld1 500ml 13:58 Drug: NS 0.9% 500 ml Route: IV; Rate: bolus; Site: right antecubital; ld1 18:33 Follow up: Response: No adverse reaction; IV Status: Completed infusion; IV Intake: ld1 500ml Intake: 18:33 IV: 500ml; Total: 500ml. ld1 18:33 IV: 250ml; Total: 750ml. ld1 18:33 IV: 1000ml; Total: 1750ml. ld1 18:34 IV: 500ml; Total: 2250ml. ld1 Outcome: 14:51 Discharge ordered by MD. gonzalez 16:48 Discharged to home ambulatory. 5 16:48 Condition: stable 16:48 Discharge instructions given to patient. 16:56 Patient left the ED. ld1 Signatures: Dispatcher [employer] Hernesto Mccollum MD MD cha Rivera, Mary mr Williams, Rossy, RN RN Tania Bedolla [facility] Zuleika Dykes RN RN ld1 Devaughn García RN RN ch5 Corrections: (The following items were deleted from the chart) 12:21 12:19 Chief complaint: Patient states: got a message that she was COVID + , is feeling iw very weak, pt fell out of bed this morning and had trouble getting herself up, is also having some SOB iw
--- NOTE | 2021-05-30 15:47 | RAD REPORT ---
EXAM DESCRIPTION: CT - Head C Spine Cap Wo Con - 05/30/2021 3:25 pm CLINICAL HISTORY: Trauma, head and neck injury. Chest, abdomen and pelvis pain. PAIN COMPARISON: Chest Abdomen Pelvis W Cont dated 11/01/2020 TECHNIQUE: CT head without contrast. CT cervical spine without contrast with coronal and sagittal reformatted images. CT chest, abdomen and pelvis without contrast with coronal and sagittal reformatted images of the spi ne. All CT scans are performed using dose optimization technique as appropriate and may include automated exposure control or mA/KV adjustment according to patient size. FINDINGS: CT HEAD WITHOUT CONTRAST: No intracranial hemorrhage, hydrocephalus or extra-axial fluid collection. Calcified meningioma is no catie along the right convexity measuring 2 cm. Mild periventricular and deep white matter chronic micr ovascular ischemic changes. No areas of brain edema or midline shift. The paranasal sinuses and mastoids are clear. The calvarium is intact. CT CERVICAL SPINE WITHOUT CONTRAST: No fracture or subluxation. Moderate multilevel cervical degenerative changes are present. The prever tebral soft tissues are normal in thickness. CT CHEST, ABDOMEN, PELVIS WITHOUT CONTRAST: NOTE: Lack of contrast is a significant limitation in the assessment of trauma related findings. Spec ifically, solid organ, vascular and bowel evaluation is significantly limited. 3 cm nodule is present left thyroid lobe.Small area of infiltrate is present the inferior left lower lobe and right middle lobe.No pneumothorax or pericardial/pleural fluid. No evidence of intra-abdominal visceral injury, free fluid or free air is seen within the above detai led limitations. Small stones are present in both kidneys without significant hydronephrosis. Large r ight renal cyst is noted measuring 7 cm in size. No concerning pelvic findings. Mild sigmoid diverticulosis coli. Postsurgical changes involve the thoracolumbar spine. IMPRESSION: Negative for acute traumatic findings within the above detailed limitations.
--- NOTE | 2021-05-30 16:51 | RAD REPORT ---
EXAM DESCRIPTION: US - Extrem Venous W Compress Greyson - 05/30/2021 4:33 pm CLINICAL HISTORY: PAIN Bilateral leg edema and swelling. COMPARISON: Extremity Venous Uni Ltd dated 07/20/2016 TECHNIQUE: Real-time sonographic interrogation of the left and right lower extremity deep venous sys tems was performed. FINDINGS: Normal compressibility, flow augmentation, phasic flow and spontaneous flow is identified in both the left and right lower extremity deep venous systems. IMPRESSION: No sonographic evidence of left or right lower extremity deep venous thrombosis.
[2021-05-30 17:02] VITALS: TEMP 99.1
[2021-05-30 17:11] VITALS: BP 142/70; O2SAT 95
== END 2021-05-30 16:56 | disposition home or self-care (01) ==
LOC: ER 12:01
DX: U07.1 COVID-19 (principal); J12.82 Pneumonia due to coronavirus disease 2019; N18.9 Chronic kidney disease, unspecified; W08.XXXA Fall from other furniture, initial encounter; E03.9 Hypothyroidism, unspecified; Z79.01 Long term (current) use of anticoagulants; Z79.82 Long term (current) use of aspirin
CPT/HCPCS: 96365; 93005; 85025; 80048; 36415; 83735; 85610; 85379; 80076; 84484; 82728; 83880; 86140; 70450; 71250; 72125; 71045; 93970; 96375; 99285; 96366; J7050; J7030

== ENCOUNTER 2022-10-27 08:10 | Day surgery (SDC) | payer OTHER ==
[2022-10-26 14:48] LABS: Absolute Lymphocytes (CBC) 4.4 K/uL (0.7-4.9); Hematocrit 38.7 % (36.0-45.0); Lymphocytes % 48.1 % (15.3-44.8); MPV 7.9 fL (7.6-11.3); RBC Red Blood Cell Count 4.04 M/uL (3.86-4.86)
[2022-10-26 15:03] LABS: Potassium 4.6 mmol/L (3.5-5.1)
--- NOTE | 2022-10-26 15:06 | RAD REPORT ---
EXAM DESCRIPTION: Faith Hebert And Lat (2 Views)10/26/2022 2:57 pm CLINICAL HISTORY: Preop chest surgery COMPARISON: 2020 FINDINGS: The lungs appear clear of acute infiltrate. Left pleural scarring. The heart is normal size An rods within the spine. Lungs are mildly hyperaerated. IMPRESSION: No acute abnormalities displayed
[2022-10-27] MEDS ORDERED: CEFAZOLIN SODIUM 1 GM/VIAL ONE (08:38)
[2022-10-27] MEDS ORDERED: Ringers Lactate 1,000 ML IV ONE (08:38)
[2022-10-27] MEDS ORDERED: FENTANYL CITR 100 MCG/2 ML ONE (09:44)
[2022-10-27] MEDS ORDERED: propofoL 200 MG/20 ML VIAL IV ONE (09:44)
[2022-10-27] MEDS ORDERED: ONDANSETRON 4 MG/2 ML VIAL ONE (09:44)
[2022-10-27] MEDS ORDERED: LIDOCAINE 2% MPF 5 ML VIAL ONE (09:44)
[2022-10-27] MEDS ORDERED: BUPIVACAINE 0.5% PF 10 ML VIAL ONE (09:46)
[2022-10-27] MEDS ORDERED: Mastisol Adhesive Liq ONE (09:53)
--- NOTE | 2022-10-27 11:06 | P.BOP ---
Preoperative diagnosis: history of breast cancer. Bilateral chest wall masses Postoperative diagnosis: same Primary procedure: 1. Excisional biopsy of right chest wall mass 2x2cm Secondary procedure: 2. Excisional biopsy of left chest wall mass 2x2cm Estimated blood loss: <10cc Specimen: mass x 2 Findings: see dictation . Left sided involving muscle Anesthesia: General Complications: None Transferred to: Recovery Room Condition: Good
[2022-10-27 12:06] VITALS: TEMP 97.6
[2022-10-27 12:37] VITALS: BP 132/64; O2SAT 97
--- NOTE | 2022-10-27 17:30 | DS ---
Date of Discharge: 10/27/2022 Diagnoses: History of breast cancer, bilateral chest wall masses. Procedure: Excisional biopsy right and left chest wall masses. Disposition: Home. Activity: As tolerated. No heavy lifting. Plan: Follow up in my office in 1 week. Call for appointment at [phone]. Keep area dry for 48 danielle rs, then may shower and after that may put triple antibiotics and gauze over the area. JAIRO/RHYS Voice ID: [id number] Report ID: [id number]
--- NOTE | 2022-10-27 17:30 | OP ---
Date of Procedure: 10/27/2022 Surgeon: Brandon Egan MD Preoperative Diagnoses: History of breast cancer, status post bilateral mastectomies, and right now has bilateral chest wall masses. Postoperative Diagnoses: History of breast cancer, status post bilateral mastectomies, and right now has bilateral chest wall masses. Procedures: 1.Excisional biopsy of right chest wall mass, 2 x 2 cm. 2.Excisional biopsy of left chest wall mass, 2 x 2 cm. Estimated Blood Loss: Less than 10 mL. Specimen: X2 masses. Findings: The patient has masses over the previous area what she has breast cancer after bilateral m astectomies and flaps were created. On the right side, it is seen on the subcutaneous tissue region, does not involve the fascia of the muscle. On the left side, the area of concern involved fascia wi th some muscle fibers. Anesthesia: General plus local. Complications: None. Indication: This is the case of an 82-year-old patient, history of bilateral mastectomy to breast [facility]. The patient has been doing well, but she noticed 2 new areas of concern increasing in size and discomfort and she wants that excised. The patient was sent also by her physician for excision. Th e benefits, alternatives, and risks of excisional biopsy of chest wall masses fully explained, which include, but not limited to infection, bleeding, damage to adjacent structures, anesthesia complicati on, IL, and even . She also understands this may not relieve any symptoms. She might need more than one surgical intervention. She understood, signed a consent. The areas of concern were marked by me and the patient in the holding room. Procedure In Detail: The patient was brought to the operating room, placed in supine position. Anes thesia was done without complication. Bilateral chest areas were prepped and draped in the usual alec rile fashion. A time-out was called. We proceeded to left the local anesthetic for the end since we want to make sure that we continued feeling the mass during the whole case. A wedge incision was ma de in wide resection of that area in the right side and the left side we have similar techniques, alt grant on the left side, we have to go and get some fiber of the muscle underneath and this case will be pectoralis muscle to be able to remove that density from that region. Each case was done individu ally to avoid cross contamination. It was done by doing a wedge incision on the skin all the way brant n to the right side subcutaneous tissue and left side all the way down to muscle. Then, after that, basically the area was irrigated, hemostasis was obtained and the area was closed with a combination of 3-0 chromic and leatha. Each procedure once again was done individually. The patient tolerated the procedure well. Dressings were placed in the same way. The patient was sent to recovery in stab condition. JAIRO/RHYS Voice ID: [id number] Report ID: [id number]
== END 2022-10-27 12:29 | disposition home or self-care (01) ==
LOC: OR 08:10
PROVIDERS: ATTEND Surgery
DX: L72.0 Epidermal cyst (principal); M79.5 Residual foreign body in soft tissue; Z85.3 Personal history of malignant neoplasm of breast; Z90.13 Acquired absence of bilateral breasts and nipples
CPT/HCPCS: 85025; 80048; 36415; 88304; 71046; J2704; J2001; J3010; J7120; J2405; J0690

== ENCOUNTER 2024-04-07 18:14 | Emergency (ER) | payer OTHER ==
[2024-04-07 18:54] LABS: Hematocrit 35.8 % (36.0-45.0); Hemoglobin 11.7 g/dL (12.0-15.0); MCH 31.1 pg (27.0-35.0); MCHC 32.6 g/dL (32.0-36.0); MCV 95.5 fL (80-100); MPV 8.1 fL (7.6-11.3); Platelets 305 thou/uL (152-406); RBC Red Blood Cell Count 3.75 M/uL (3.86-4.86); Red Cell Distribution Width 16.6 % (12.1-15.2)
[2024-04-07 19:08] LABS: Anion Gap 7.6 mEq/L (5.0-15.0); Potassium 3.6 mEq/L (3.5-5.1)
[2024-04-07 19:26] LABS: Specific Gravity 1.017 (1.005-1.030); Sqamous Epithelial <5 /HPF (None Seen); Urine Bacteria 20-50 /HPF (<20); Urine Bilirubin NEGATIVE (Negative); Urine Blood 1+ (Negative); Urine Clarity Extremely Turbid (Clear); Urine Color Light-Yellow (Yellow); Urine Culture Reflex Order REFLEXED; Urine Glucose NEGATIVE (Negative); Urine Ketones NEGATIVE (Negative); Urine Micro Reflex YN NO BILL MICROSCOPIC; Urine Mucus Slight /HPF (None Seen); Urine Nitrite 1+ (Negative); Urine Protein NEGATIVE (Negative); Urine Urobilinogen Normal (Normal); Urine WBC >50 /HPF (<5); Urine WBC Clump Few /HPF (None Seen); Urine pH 6.5 (5.0-7.0)
--- NOTE | 2024-04-07 19:58 | RAD REPORT ---
EXAM DESCRIPTION: CT - Head C Spine Cap Wo Con - 04/07/2024 7:33 pm CLINICAL HISTORY: Trauma, head and neck injury. Chest, abdomen and pelvis pain. fall;Trauma COMPARISON: <Comparisons> TECHNIQUE: CT head without contrast. CT cervical spine without contrast with coronal and sagittal reformatted images. CT chest, abdomen and pelvis without contrast with coronal and sagittal reformatted images of the spi ne. All CT scans are performed using dose optimization technique as appropriate and may include automated exposure control or mA/KV adjustment according to patient size. FINDINGS: CT HEAD WITHOUT CONTRAST: No intracranial hemorrhage, hydrocephalus or extra-axial fluid collection. Mild generalized brain atr ophy is present with mild periventricular and deep white matter chronic microvascular ischemic change s. No areas of brain edema or midline shift. Right sided calcified extra-axial lesion unchanged. The paranasal sinuses and mastoids are clear. The calvarium is intact. CT CERVICAL SPINE WITHOUT CONTRAST: No fracture or subluxation. Moderate cervical degenerative changes. The prevertebral soft tissues are normal in thickness.2.5 cm left thyroid nodule. CT CHEST, ABDOMEN, PELVIS WITHOUT CONTRAST: NOTE: Lack of contrast is a significant limitation in the assessment of trauma related findings. Spec ifically, solid organ, vascular and bowel evaluation is significantly limited. The lungs are clear.No pneumothorax or pericardial/pleural fluid. No evidence of intra-abdominal visceral injury, free fluid or free air is seen within the above detai led limitations. Nonobstructing left renal calculus. Significant osteopenia with posts fusion hardware in place in the lumbar spine. No fractures. IMPRESSION: Negative for acute traumatic findings within the above detailed limitations.
[2024-04-07] MEDS ORDERED: NA CHLORIDE 0.9% 1,000 ML ONE (19:59)
[2024-04-07] MEDS ORDERED: CEFTRIAXONE 1000 MG/VIAL ONE (20:29)
[2024-04-07] MEDS ORDERED: NA CHLORIDE 0.9% 50 ML ONE (20:29)
--- NOTE | 2024-04-07 20:41 | EDPHYS ---
Physician Documentation [facility] Name: Pauly Alex Age: 84 yrs Sex: Female : 1940 Arrival Date: 04/07/2024 Time: 18:14 Bed 12 Private MD: ED Physician Hunter Guallpa HPI: 04/07 18:30 This 84 yrs old Female presents to ER via Unassigned with complaints of Head Injury sb4 Without LOC-Adult. 18:30 patient states she has been fallen a few times over the past few days, states she feels sb4 weaker than usual. states she fell today and hit the back of her head on the corner of the coffee table. denies any LOC. 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 has no complaints at this time. Historical: - Allergies: 20:30 No Known Allergies; nj1 - Home Meds: 18:33 allopurinol 300 mg Oral tab [Active]; topiramate 100 mg Oral tab [Active]; tl4 spironolactone 25 mg Oral tab [Active]; bisoprolol fumarate 5 mg Oral tab [Active]; aspirin 81 mg Oral TbEC 1 tab once daily [Active]; Xarelto 10 mg Oral tab [Active]; Levothroid 75 mcg Oral tab 1 tab once daily [Active]; - PMHx: 18:33 angina pectoris; Depression; GERD; Gout; Hypothyroidism; Pneumonia; tl4 - Immunization history:: Adult Immunizations unknown. - Infectious Disease History:: Denies. - Social history:: Smoking status: Patient denies any tobacco usage or history of. ROS: 18:30 Constitutional: Negative for fever, chills, and weight loss, sb4 18:30 Skin: Positive for laceration(s), of the scalp, 18:30 All other systems are negative, Exam: 18:30 Constitutional: This is a well developed, well nourished patient who is awake, alert, sb4 and in no acute distress. Eyes: Extra-ocular motions intact. Periorbital areas with no swelling, redness, or edema. ENT: Mucous membranes moist. Cardiovascular: Regular rate and rhythm with a normal S1 and S2. Respiratory: Lungs have equal breath sounds bilaterally, clear to auscultation and percussion. No rales, rhonchi or wheezes noted. No increased work of breathing, no retractions or nasal flaring. Abdomen/GI: Soft, non-tender, no distension. MS/ Extremity: Pulses equal, no cyanosis. Neurovascular intact. Full, normal range of motion. Neuro: Awake and alert, GCS 15, oriented to person, place, time, and situation. Motor strength 5/5 in all extremities. Sensory grossly intact. 18:30 Head/face: Noted is a laceration(s), that is superficial, that is linear, 1.5 cm(s), of the right occipital area, 18:30 Eyes: Pupils: equal, round, and reactive to light and accomodation, 18:30 Skin: multiple small scabbed wounds on bilateral arms. Vital Signs: 18:31 BP 122 / 52; Pulse 68; Resp 16; Temp 97.8(O); Pulse Ox 97% on R/A; Weight 79.38 kg; tl4 Height 5 ft. 4 in. ; Pain 4/10; 20:00 BP 128 / 78; Pulse 70; Resp 18; Pulse Ox 98% on R/A; mb9 18:31 Body Mass Index 30.04 (79.38 kg, 162.56 cm) tl4 18:31 Pain Scale: Adult tl4 [place] Coma Score: 20:19 Eye Response: spontaneous(4). Motor Response: obeys commands(6). Verbal Response: sb4 oriented(5). Total: 15. Laceration: 20:19 Wound Repair of 1.5cm ( 0.6in ) subcutaneous laceration to right occipital area. Distal sb4 neuro/vascular/tendon intact. Wound prep: Moderate cleansing with hibiclenz by me. Skin closed with 2 morgan Morgan using staple gun. Patient tolerated well. MDM: 18:16 Patient medically screened. sb4 20:19 Data reviewed: vital signs, nurses notes, lab test result(s), radiologic studies, and sb4 as a result, I will discharge patient. Historians other than the Patient: Daughter/Son: son and daughter. Counseling: I had a detailed discussion with the patient and/or guardian regarding the historical points, exam findings, and any diagnostic results supporting the discharge/admit diagnosis, lab results, radiology results, the need for outpatient follow up, staple removal in 5-7 days, to return to the emergency department if symptoms worsen or persist or if there are any questions or concerns that arise at home. 20:29 Care significantly affected by the following chronic conditions: Hypertension, Obesity. sb4 04/07 18:28 Order name: CBC w/o diff; Complete Time: 18:59 sb4 04/07 18:28 Order name: BMP; Complete Time: 19:10 sb4 04/07 18:28 Order name: UAM; Complete Time: 20:02 sb4 04/07 20:04 Order name: Urine Culture EDMS 04/07 18:28 Order name: Head C Spine Cap Wo Con CT; Complete Time: 20:01 sb4 04/07 18:28 Order name: IV Start; Complete Time: 18:55 sb4 Administered Medications: 20:02 Drug: NS 0.9% IV 1000 ml IV at 1 bolus Per protocol; 1000 mL bolus Route: IV; Rate: 1 mb9 bolus; Site: right upper arm; 21:35 Follow up: Response: No adverse reaction; IV Status: Completed infusion mb9 20:34 Drug: Rocephin IV 1 grams IV at calculated rate once; Given slow IV push per pharmacy nj1 instructions Route: IV; Rate: calculated rate; Site: right upper arm; 20:51 Follow up: Response: No adverse reaction; IV Status: Completed infusion mb9 Disposition Summary: 04/07/24 20:40 Discharge Ordered Notes: Location: Home sb4 Problem: new sb4 Symptoms: have improved sb4 Condition: Stable sb4 Diagnosis - Laceration without foreign body of scalp sb4 - UTI/ Urinary tract infection, site not specified sb4 Followup: sb4 - With: Pete Klein MD - When: 5 - 6 days - Reason: Staple/Suture removal Discharge Instructions: - Discharge Summary Sheet sb4 - Urinary Tract Infection, Adult, [id number] sb4 - Sutures, Morgan, or Adhesive Wound Closure, [id number] sb4 Forms: - Antibiotic Education sb4 - Patient Portal Instructions sb4 - Leadership Thank You Letter sb4 Prescriptions: - cefpodoxime 100 mg Oral Tablet - take 1 tablet ORAL route every 12 hours for 10 days take with food; 20 tablet; sb4 Refills: 0, Product Selection Permitted Addendum: 04/10/2024 07:07 Co-signature as Attending Physician, Hunter Guallpa MD I reviewed the patient's care r n provided by the Advanced Practice Provider and agree with the diagnosis and treatment plan. Signatures: Dispatcher [employer] EDMS Hunter Guallpa MD MD rn Brown, Sophia, PA-C PA-Amanda [place]4 Pauly Vincent RN RN mb9 Joellen Le RN RN nj1 José Miguel Martin RN RN tl4 Corrections: (The following items were deleted from the chart) 04/07 18:29 18:29 CBC without Diff+H.LAB.BRZ ordered. EDMS EDMS 18:29 18:29 BASIC METABOLIC PANEL+C.LAB.BRZ ordered. EDMS EDMS 18:29 18:29 Urinalysis W/Microscopic+U.LAB.BRZ ordered. EDMS EDMS
--- NOTE | 2024-04-07 20:41 | ER ---
Nurse's Notes [facility] Name: Pauly Alex Age: 84 yrs Sex: Female : 1940 Arrival Date: 04/07/2024 Time: 18:14 Bed 12 Private MD: Diagnosis: Laceration without foreign body of scalp;UTI/ Urinary tract infection, site not specified Presentation: 04/07 18:31 Chief complaint: Patient states: Pt states her legs got weak and she fell, striking tl4 head on her coffee table. Pt denies any LOC. Pt has noted laceration to back of head, bleeding controlled. Pt states she has frequent falls due to weakness. Coronavirus screen: At this time, the client does not indicate any symptoms associated with coronavirus-19. Ebola Screen: No symptoms or risks identified at this time. Initial Sepsis Screen: Does the patient meet any 2 criteria? No. Patient's initial sepsis screen is negative. Does the patient have a suspected source of infection? No. Patient's initial sepsis screen is negative. Risk Assessment: Do you want to hurt yourself or someone else? Patient reports no desire to harm self or others. Onset of symptoms was April 07, 2024 at 17:30. 18:31 Method Of Arrival: Wheelchair tl4 18:31 Acuity: KIA 3 tl4 Triage Assessment: 18:35 General: Appears in no apparent distress. Behavior is calm, cooperative. Pain: tl4 Complains of pain in scalp. EENT: No signs and/or symptoms were reported regarding the EENT system. Neuro: Level of Consciousness is awake, alert, obeys commands, Oriented to person, place, time, situation. Cardiovascular: Capillary refill < 3 seconds Patient's skin is warm and dry. Respiratory: Airway is patent Respiratory effort is even, unlabored, Respiratory pattern is regular, symmetrical. GI: No signs and/or symptoms were reported involving the gastrointestinal system. : No signs and/or symptoms were reported regarding the genitourinary system. Derm: No signs and/or symptoms reported regarding the dermatologic system. Musculoskeletal: No signs and/or symptoms reported regarding the musculoskeletal system. Injury Description: Laceration sustained to scalp. Historical: - Allergies: 20:30 No Known Allergies; nj1 - Home Meds: 18:33 allopurinol 300 mg Oral tab [Active]; topiramate 100 mg Oral tab [Active]; tl4 spironolactone 25 mg Oral tab [Active]; bisoprolol fumarate 5 mg Oral tab [Active]; aspirin 81 mg Oral TbEC 1 tab once daily [Active]; Xarelto 10 mg Oral tab [Active]; Levothroid 75 mcg Oral tab 1 tab once daily [Active]; - PMHx: 18:33 angina pectoris; Depression; GERD; Gout; Hypothyroidism; Pneumonia; tl4 - Immunization history:: Adult Immunizations unknown. - Infectious Disease History:: Denies. - Social history:: Smoking status: Patient denies any tobacco usage or history of. Screenin:03 [facility] ED Fall Risk Assessment (Adult) History of falling in the last 3 months, mb9 including since admission Yes- fall prone (multiple falls) (3 pts) Confusion or Disorientation No (0 pts) Intoxicated or Sedated No (0 pts) Impaired Gait No (0 pts) Mobility Assist Device Used No (0 pt) Altered Elimination No (0 pt) Score/Fall Risk Level 0 - 2 = Low Risk Oriented to surroundings, Maintained a safe environment, Educated pt \T\ family on fall prevention, incl call for assistance when getting out of bed. Abuse screen: Denies threats or abuse. Nutritional screening: No deficits noted. Tuberculosis screening: No symptoms or risk factors identified. Assessment: 18:54 General: Appears in no apparent distress. Behavior is calm. Pain: Denies pain. Neuro: mb9 Hdz Agitation-Sedation Scale (RASS): 0 - Alert and Calm Level of Consciousness is awake, alert, obeys commands, Oriented to person, place, time, situation, Appropriate for age Pupils are PERRLA. Cardiovascular: Patient's skin is warm and dry. Respiratory: Airway is patent Respiratory effort is even, unlabored, Respiratory pattern is regular, symmetrical. GI: No signs and/or symptoms were reported involving the gastrointestinal system. : No signs and/or symptoms were reported regarding the genitourinary system. EENT: No signs and/or symptoms were reported regarding the EENT system. Derm: Skin is pink, warm \T\ dry. Musculoskeletal: Range of motion: intact in all extremities. Injury Description: Laceration sustained to scalp is clean, not bleeding. 20:35 Reassessment: No changes from previously documented assessment. Patient and/or family mb9 updated on plan of care and expected duration. Pain level reassessed. Patient is alert, oriented x 3, equal unlabored respirations, skin warm/dry/pink. 20:42 Reassessment: Discharge pending completion of IV fluids. mb9 21:35 Reassessment: Patient appears in no apparent distress at this time. No changes from mb9 previously documented assessment. Patient and/or family updated on plan of care and expected duration. Pain level reassessed. Patient is alert, oriented x 3, equal unlabored respirations, skin warm/dry/pink. Vital Signs: 18:31 BP 122 / 52; Pulse 68; Resp 16; Temp 97.8(O); Pulse Ox 97% on R/A; Weight 79.38 kg; tl4 Height 5 ft. 4 in. ; Pain 4/10; 20:00 BP 128 / 78; Pulse 70; Resp 18; Pulse Ox 98% on R/A; mb9 18:31 Body Mass Index 30.04 (79.38 kg, 162.56 cm) tl4 18:31 Pain Scale: Adult tl4 [place] Coma Score: 20:19 Eye Response: spontaneous(4). Motor Response: obeys commands(6). Verbal Response: sb4 oriented(5). Total: 15. ED Course: 18:16 Patient arrived in ED. im 18:16 Marcela Rivas PA-C is PHCP. sb4 18:16 Hunter Guallpa MD is Attending Physician. sb4 18:28 Pauly Vincent, KATELIN is Primary Nurse. mb9 18:33 Triage completed. tl4 18:36 Arm band placed on right wrist. tl4 19:03 Placed in gown. Bed in low position. Call light in reach. Side rails up X 1. Provided mb9 Education on: press call light if needing anything. Client placed on continuous cardiac and pulse oximetry monitoring. NIBP monitoring applied. 19:08 Initial lab(s) drawn, by me, sent to lab. Urine collected: clean catch specimen, clear. mb9 19:[address] via stretcher. mb9 19:35 Head C Spine Cap Wo Con CT In Process Unspecified. EDMS 20:03 Inserted saline lock: 24 gauge in right upper arm, using aseptic technique. mb9 20:15 Assist provider with laceration repair on scalp that was 2.5 cm. or less using leatha. mb9 Set up tray. Performed by Hunter Guallpa MD Patient tolerated well. 20:40 Pete Klein MD is Referral Physician. sb4 21:35 IV discontinued, intact, bleeding controlled, No redness/swelling at site. Pressure mb9 dressing applied. Administered Medications: 20:02 Drug: NS 0.9% IV 1000 ml IV at 1 bolus Per protocol; 1000 mL bolus Route: IV; Rate: 1 mb9 bolus; Site: right upper arm; 21:35 Follow up: Response: No adverse reaction; IV Status: Completed infusion mb9 20:34 Drug: Rocephin IV 1 grams IV at calculated rate once; Given slow IV push per pharmacy nj1 instructions Route: IV; Rate: calculated rate; Site: right upper arm; 20:51 Follow up: Response: No adverse reaction; IV Status: Completed infusion mb9 Medication: 19:03 VIS not applicable for this client. mb9 Outcome: 20:40 Discharge ordered by MD. sb4 21:44 Discharged to home ambulatory, with family, mb9 21:44 Condition: stable 21:44 Discharge instructions given to patient, Instructed on discharge instructions, follow up and referral plans. Demonstrated understanding of instructions, follow-up care, medications, Prescriptions given X 1, 21:58 Patient left the ED. mb9 Signatures: Dispatcher [employer] EDMarcela Willis PA-C PA-C sb4 Pauly Vincent RN RN mb9 Joellen Le RN RN nj1 Malina Tanner Toni RN RN tl4
[2024-04-07 22:41] VITALS: BP 128/78; TEMP 97.8; O2SAT 98
== END 2024-04-07 21:58 | disposition home or self-care (01) ==
LOC: ER 18:14
PROC: 0HQ0XZZ Repair Scalp Skin, External Approach (ICD-10-PCS; principal; 2024-04-07)
DX: S01.01XA Laceration without foreign body of scalp, initial encounter (principal); N39.0 Urinary tract infection, site not specified; W18.30XA Fall on same level, unspecified, initial encounter
CPT/HCPCS: 96365; 96361; 12001; 87088; 81001; 87086; 80048; 36415; 87077; 87186; 85027; 70450; 71250; 72125; 99285; J7030; J0696